=== PATIENT | male | born 1930 | race Caucasian/White ===

== ENCOUNTER → 2016-07-09 | Outpatient (CLI) | payer MEDICARE ==
[~2016-07-09] MED LIST: AMAR4TAB PO; APIX2.5T PO; CARV12.52 PO; CARV25TA PO; CHEL50TA PO; FERR50TA PO; FURO1TAB93 PO; GLUCTAB PO; IMDU60TA PO; KCL10 PO; POTA-267 PO; PRIL40CA PO; RAMI10CA PO; RAMI5CAP36 PO; RIFA550 PO; SITA100 PO; TORS1TAB12 PO; [UNRECOGNIZED DRUG - CODE] PO
[2016-07-09 08:21] LABS: AUTOMATED NEUTROPHIL # 3.3 TH/MM3 (1.8-7.7); BASOPHIL # 0.1 TH/MM3 (0-0.2); EOSINOPHIL # 0.4 TH/MM3 (0-0.4); EOSINOPHIL % 7.9 % (0.0-4.0); HEMATOCRIT 33.1 % (39.0-51.0); HEMO FLAGS DIFF FINAL; LYMPH % 19.4 % (9.0-44.0); LYMPHOCYTE # 1.1 TH/MM3 (1.0-4.8); MEAN CELL VOLUME 96.1 FL (80.0-100.0); MEAN CORPUSCULAR HEMOGLOBIN 32.4 PG (27.0-34.0); MEAN CORPUSCULAR HGB CONC 33.7 % (32.0-36.0); NEUT % 59.7 % (16.0-70.0); PLATELET COUNT 222 TH/MM3 (150-450); RED BLOOD COUNT 3.45 MIL/MM3 (4.50-5.90); RED CELL DISTRIBUTION WIDTH 15.4 % (11.6-17.2); WHITE BLOOD COUNT 5.5 TH/MM3 (4.0-11.0)
[2016-07-09 08:26] LABS: INTERNATIONAL NORMALIZED RATIO 1.1 RATIO; PROTHROMBIN TIME - PATIENT 12.7 SEC (9.8-11.6)
[2016-07-09 08:42] LABS: ANION GAP 6 MEQ/L (5-15); AST (GOT) 13 U/L (15-37); BICARBONATE 32.5 MEQ/L (21.0-32.0); BLOOD UREA NITROGEN 28 MG/DL (7-18); CHLORIDE 98 MEQ/L (98-107); GLOMERULAR FILTRATION RATE 58 ML/MIN (>89); GLUCOSE,FASTING 228 MG/DL (74-99); POTASSIUM 4.9 MEQ/L (3.5-5.1); SODIUM (NA) 136 MEQ/L (136-145)
[2016-07-09 08:45] LABS: ALKALINE PHOSPHATASE 168 U/L (45-117); ALT (GPT) 16 U/L (12-78); TOTAL BILIRUBIN ADULT 0.5 MG/DL (0.2-1.0)
== END ==
LOC: CLAB 07:59
PROVIDERS: ATTEND Physician Assistant Medical
DX: K74.60 Unspecified cirrhosis of liver (principal)
CPT/HCPCS: 36415; 80053; 82105; 85025; 85610

== ENCOUNTER → 2016-07-16 | Outpatient (CLI) | payer MEDICARE ==
[2016-07-16 08:51] LABS: BICARBONATE 33.1 MEQ/L (21.0-32.0); POTASSIUM 4.5 MEQ/L (3.5-5.1)
== END ==
LOC: CLAB 07:56
PROVIDERS: ATTEND Internal Medicine Cardiovascular Disease
DX: I50.9 Heart failure, unspecified (principal); Z79.899 Other long term (current) drug therapy
CPT/HCPCS: 36415; 80048

== ENCOUNTER → 2016-12-31 | Outpatient (CLI) | payer MEDICARE ==
[2016-12-31 08:35] LABS: AUTOMATED NEUTROPHIL # 3.3 TH/MM3 (1.8-7.7); BASOPHIL % 0.9 % (0.0-2.0); EOSINOPHIL # 0.3 TH/MM3 (0-0.4); EOSINOPHIL % 5.1 % (0.0-4.0); HEMATOCRIT 33.9 % (39.0-51.0); HEMO FLAGS DIFF FINAL; LYMPH % 18.7 % (9.0-44.0); LYMPHOCYTE # 0.9 TH/MM3 (1.0-4.8); MEAN CELL VOLUME 100.7 FL (80.0-100.0); MEAN CORPUSCULAR HGB CONC 32.8 % (32.0-36.0); MONO % 10.1 % (0.0-8.0); NEUT % 65.2 % (16.0-70.0); PLATELET COUNT 214 TH/MM3 (150-450); RED BLOOD COUNT 3.37 MIL/MM3 (4.50-5.90); RED CELL DISTRIBUTION WIDTH 15.1 % (11.6-17.2); WHITE BLOOD COUNT 5.1 TH/MM3 (4.0-11.0)
[2016-12-31 08:45] LABS: INTERNATIONAL NORMALIZED RATIO 1.1 RATIO; PROTHROMBIN TIME - PATIENT 12.7 SEC (9.8-11.6)
[2016-12-31 09:05] LABS: ANION GAP 7 MEQ/L (5-15); AST (GOT) 19 U/L (15-37); BICARBONATE 30.2 MEQ/L (21.0-32.0); BLOOD UREA NITROGEN 21 MG/DL (7-18); CHLORIDE 101 MEQ/L (98-107); GLOMERULAR FILTRATION RATE 76 ML/MIN (>89); GLUCOSE,FASTING 196 MG/DL (74-99); POTASSIUM 4.1 MEQ/L (3.5-5.1); SODIUM (NA) 138 MEQ/L (136-145)
[2016-12-31 09:07] LABS: ALT (GPT) 23 U/L (12-78)
[2016-12-31 09:09] LABS: ALKALINE PHOSPHATASE 152 U/L (45-117); TOTAL BILIRUBIN ADULT 0.8 MG/DL (0.2-1.0)
== END ==
LOC: CLAB 07:45
PROVIDERS: ATTEND Physician Assistant Medical
DX: K74.60 Unspecified cirrhosis of liver (principal)
CPT/HCPCS: 36415; 80053; 82105; 85025; 85610

== ENCOUNTER 2017-02-24 09:36 | Observation (INO) | payer MEDICARE ==
[~2017-02-24] VITALS: Ht 180.3 cm; Wt 75.0 kg
[2017-02-24 09:42] VITALS: BP 138/66; PULSE 84; RESP 24; TEMP 98.4; O2SAT 96
[2017-02-24] MEDS ORDERED: SODIUM CHLORIDE 0.9% FLUSH 5 ML FLUSH IV FLUSH PRN (09:45)
[2017-02-24] MEDS ORDERED: SODIUM CHLORID 0.9% 500 ML INJ 500 ML IV ONE (09:45)
[2017-02-24 09:48] VITALS: RESP 24; O2SAT 96
[2017-02-24] MEDS ORDERED: SACU1TAB7 PO (09:48)
[2017-02-24] MEDS ORDERED: APIX2.5T PO (09:48)
[2017-02-24] MEDS ORDERED: XIFA550T4 PO (09:48)
[2017-02-24] MEDS ORDERED: METF500T PO (09:48)
[2017-02-24] MEDS ORDERED: POTA10CA PO (09:48)
[2017-02-24] MEDS ORDERED: GLIM4TAB PO (09:48)
[2017-02-24] MEDS ORDERED: CARV12.52 PO (09:48)
[2017-02-24] MEDS ORDERED: TORS20TA PO (09:48)
[2017-02-24] MEDS ORDERED: FERR1TAB20 (09:48)
[2017-02-24] MEDS ORDERED: SITA1TAB2 PO (09:48)
[2017-02-24] MEDS ORDERED: ISOS60TA PO (09:48)
--- NOTE | 2017-02-24 09:50 | PD ---
HPI Chief Complaint: Fall Time Seen by Provider: 09:43 Travel History International Travel<30 days: No Contact w/Intl Traveler<30days: No Traveled to known affect area: No History of Present Illness HPI 86-year-old male patient with history of dementia, presents to the ER today brought in by EMS because apparently he has had a declining course according to the family, generally weak, fell off the toilet this morning. Apparently he usually is able to walk and transfer with walker with some help in the family but the states that he has not been able to do that. It is unclear when the symptoms worsened. He is demented and is not a reliable historian. Modifying Factors: None Associated Signs & Symptoms: Weakness, altered mental status, fall from toilet Risk Factors: Elderly, dementia PFSH Past Medical History Hx Anticoagulant Therapy: Yes (ELIQUIS) Asthma: No Autoimmune Disease: No Blood Disorders: No Anxiety: No Depression: No Heart Rhythm Problems: Yes Cancer: No Cardiac Catheterization: Yes Cardiovascular Problems: Yes (chf) High Cholesterol: No Chemotherapy: No Chest Pain: Yes Congestive Heart Failure: Yes COPD: No Dementia: Yes Diabetes: Yes Diminished Hearing: Yes Endocrine: Yes Gastrointestinal Disorders: No Genitourinary: Yes (kidney stones) Hypertension: Yes Implanted Vascular Access Dvce: Yes Kidney Stones: Yes Musculoskeletal: Yes (back surgery) Neurologic: No Psychiatric: No Reproductive: No Respiratory: No Myocardial Infarction: Yes Radiation Therapy: No Sleep Apnea: No Thyroid Disease: No Past Surgical History Abdominal Surgery: Yes (multiple hernia's) AICD: Yes Body Medical Devices: AICD/pacemaker Cardiac Surgery: Yes (pacer - apr 2002, 2005, cabg may 1989) Coronary Artery Bypass Graft: Yes Pacemaker: Yes Other Surgery: Yes Social History Alcohol Use: No Tobacco Use: No Substance Use: No Allergies-Medications (Allergen,Severity, Reaction): Coded Allergies: tetanus toxoid, adsorbed (Unverified Allergy, Severe, 02/24/17) Reported Meds & Prescriptions Reported Meds & Active Scripts Active Reported [Mery-Sequels] 50 Mg HS Xifaxan (Rifaximin) 550 Mg Tab 500 Mg PO BID Potassium Chloride ER (Potassium Chloride) 10 Meq Cap 10 Meq PO DAILY Torsemide 20 Mg Tab 20 Mg PO BID Eliquis (Apixaban) 2.5 Mg Tab 2.5 Mg PO BID Entresto (Sacubitril-Valsartan) 49-51 Mg Tab 1 Tab PO BID Januvia (Sitagliptin Phosphate) 100 Mg Tab 100 Mg PO DAILY Glimepiride 4 Mg Tab 4 Mg PO DAILY Take with breakfast or first main meal Isosorbide Mononitrate ER (Isosorbide Mononitrate) 60 Mg Tab 60 Mg PO DAILY Metformin (Metformin HCl) 500 Mg Tab 500 Mg PO BIDPC With meals Carvedilol 12.5 Mg Tab 12.5 Mg PO BID Review of Systems ROS Limitations: Altered Mental Status Physical Exam Narrative GENERAL: Well-developed elderly white male patient currently in mild distress. Awake, alert, following directions, oriented to self. SKIN: Focused skin assessment warm/dry. HEAD: Atraumatic. Normocephalic. EYES: Pupils equal and round. No scleral icterus. No injection or drainage. ENT: No nasal bleeding or discharge. Mucous membranes pink and moist. NECK: Trachea midline. No JVD. CARDIOVASCULAR: Regular rate and rhythm. No murmur appreciated. RESPIRATORY: No accessory muscle use. Clear to auscultation. Breath sounds equal bilaterally. GASTROINTESTINAL: Abdomen soft, non-tender, nondistended. Hepatic and splenic margins not palpable. MUSCULOSKELETAL: No obvious deformities. No clubbing. No cyanosis. No edema. NEUROLOGICAL: Awake and alert. No obvious cranial nerve deficits. Motor grossly within normal limits. Normal speech. No pronator drift. PSYCHIATRIC: Appropriate mood and affect; insight and judgment poor. Data Data Last Documented VS Vital Signs Date Time Temp Pulse Resp B/P (MAP) Pulse Ox O2 Delivery O2 Flow Rate FiO2 02/24/17 09:49 24 96 Nasal Cannula 2.00 02/24/17 09:42 98.4 84 138/66 (90) Orders Orders Electrocardiogram (02/24/17 09:43) Complete Blood Count With Diff (02/24/17 09:43) Comprehensive Metabolic Panel (02/24/17 09:43) Prothrombin Time / Inr (Pt) (02/24/17 09:43) Act Partial Throm Time (Ptt) (02/24/17 09:43) Troponin I (02/24/17:43) Thyroid Stimulating Hormone (02/24/17 09:43) Urinalysis - C+S If Indicated (02/24/17 09:43) Lactic Acid Sepsis Protocol (02/24/17 09:43) Blood Culture (02/24/17 09:43) Chest, Single Ap (02/24/17 09:43) Ct Brain W/O Iv Contrast(Rout) (02/24/17 09:43) Blood Glucose (02/24/17 09:43) Ecg Monitoring (02/24/17 09:43) Iv Access Insert/Monitor (02/24/17 09:43) Cath For Specimen (02/24/17 09:43) Oximetry (02/24/17 09:43) Sodium Chloride 0.9% Flush (Ns Flush) (02/24/17 09:45) Sodium Chlorid 0.9% 500 Ml Inj (Ns 500 M (02/24/17 09:45) Admit Order (Ed Use Only) (02/24/17 12:34) Labs Laboratory Tests Test 02/24/17 09:45 02/24/17 10:27 02/24/17 12:15 White Blood Count 7.3 TH/MM3 Red Blood Count 3.33 MIL/MM3 Hemoglobin 11.3 GM/DL Hematocrit 33.4 % Mean Corpuscular Volume 100.2 FL Mean Corpuscular Hemoglobin 34.0 PG Mean Corpuscular Hemoglobin Concent 33.9 % Red Cell Distribution Width 14.3 % Platelet Count 202 TH/MM3 Mean Platelet Volume 9.5 FL Neutrophils (%) (Auto) 70.3 % Lymphocytes (%) (Auto) 14.9 % Monocytes (%) (Auto) 10.7 % Eosinophils (%) (Auto) 3.6 % Basophils (%) (Auto) 0.5 % Neutrophils # (Auto) 5.1 TH/MM3 Lymphocytes # (Auto) 1.1 TH/MM3 Monocytes # (Auto) 0.8 TH/MM3 Eosinophils # (Auto) 0.3 TH/MM3 Basophils # (Auto) 0.0 TH/MM3 CBC Comment DIFF FINAL Differential Comment Prothrombin Time 12.8 SEC Prothromb Time International Ratio 1.2 RATIO Activated Partial Thromboplast Time 29.2 SEC Blood Urea Nitrogen 22 MG/DL Creatinine 1.16 MG/DL Random Glucose 242 MG/DL Total Protein 6.5 GM/DL Albumin 3.2 GM/DL Calcium Level 8.8 MG/DL Alkaline Phosphatase 139 U/L Aspartate Amino Transf (AST/SGOT) 23 U/L Alanine Aminotransferase (ALT/SGPT) 18 U/L Total Bilirubin 0.9 MG/DL Sodium Level 135 MEQ/L Potassium Level 4.3 MEQ/L Chloride Level 102 MEQ/L Carbon Dioxide Level 25.2 MEQ/L Anion Gap 8 MEQ/L Estimat Glomerular Filtration Rate 60 ML/MIN Lactic Acid Level 2.7 mmol/L Troponin I LESS THAN 0.02 NG/ML Thyroid Stimulating Hormone 3rd Gen 2.410 uIU/ML Urine Color YELLOW Urine Turbidity CLEAR Urine pH 7.0 Urine Specific [place] 1.013 Urine Protein TRACE mg/dL Urine Glucose (UA) TRACE mg/dL Urine Ketones NEG mg/dL Urine Occult Blood NEG Urine Nitrite NEG Urine Bilirubin NEG Urine Urobilinogen 2.0 MG/DL Urine Leukocyte Esterase NEG Urine RBC 5 /hpf Urine WBC 1 /hpf Urine Hyaline Casts 3 /lpf Microscopic Urinalysis Comment CATH-CULT NOT IND MDM Medical Decision Making Medical Screen Exam Complete: Yes Emergency Medical Condition: Yes Medical Record Reviewed: Yes Interpretation(s) EKG shows a paced rhythm at a rate of 73 bpm. No signs of acute ST-T changes Laboratory Tests Test 02/24/17 09:45 02/24/17 10:27 02/24/17 12:15 Red Blood Count 3.33 MIL/MM3 (4.50-5.90) Hemoglobin 11.3 GM/DL (13.0-17.0) Hematocrit 33.4 % (39.0-51.0) Mean Corpuscular Volume 100.2 FL (80.0-100.0) Neutrophils (%) (Auto) 70.3 % (16.0-70.0) Monocytes (%) (Auto) 10.7 % (0.0-8.0) Prothrombin Time 12.8 SEC (9.8-11.6) Blood Urea Nitrogen 22 MG/DL (7-18) Random Glucose 242 MG/DL (74-106) Albumin 3.2 GM/DL (3.4-5.0) Alkaline Phosphatase 139 U/L (45-117) Sodium Level 135 MEQ/L (136-145) Estimat Glomerular Filtration Rate 60 ML/MIN (>89) Lactic Acid Level 2.7 mmol/L (0.4-2.0) Troponin I LESS THAN 0.02 NG/ML Urine RBC 5 /hpf (0-3) Last [address] 02/24/17 0967 Signed Impressions: Service Date/Time: February 10:03 - CONCLUSION: No acute disease. No evidence of hemorrhage or edema. Bilateral basal ganglia calcifications. Ramses King MD Chest X-Ray 02/24/1743 Signed Impressions: Service Date/Time: , February 24, 2017 09:49 - CONCLUSION: 1. Cardiomegaly with mild positive fluid balance. 2. Minimal bibasilar airspace disease, likely atelectasis. Tevin Gordon MD Differential Diagnosis General weakness: Dehydration versus worsening dementia versus acute intracranial processes versus CVA versus metabolic issues versus sepsis Narrative Course Patient's states that he is doing poorly at home, has had a worsening weakness until today where he just was falling from a toilet seat. It is unclear whether he had a syncopal episode. Lab work did not indicate significant metabolic issues. Chest x-ray and CAT scan was negative for any acute injuries or issues. Patient does not have focal neurological deficits in the ER. However, states that he had a right sided weakness when he was on the toilet. My plan would be to admit him for further evaluation. Case was briefly discussed with Dr. Gill and her nurse practitioner called me after having read through the patient's note as well. Agrees patient should get further evaluation. Diagnosis Primary Impression: General weakness Additional Impression: Syncope Admitting Information Admitting Physician Requests: Admit Abby Cortes MD Feb 24, 2017 09:50
[2017-02-24 10:01] LABS: AUTOMATED NEUTROPHIL # 5.1 TH/MM3 (1.8-7.7); BASOPHIL % 0.5 % (0.0-2.0); EOSINOPHIL # 0.3 TH/MM3 (0-0.4); EOSINOPHIL % 3.6 % (0.0-4.0); HEMATOCRIT 33.4 % (39.0-51.0); HEMO FLAGS DIFF FINAL; LYMPH % 14.9 % (9.0-44.0); LYMPHOCYTE # 1.1 TH/MM3 (1.0-4.8); MEAN CELL VOLUME 100.2 FL (80.0-100.0); MEAN CORPUSCULAR HGB CONC 33.9 % (32.0-36.0); MONO % 10.7 % (0.0-8.0); NEUT % 70.3 % (16.0-70.0); PLATELET COUNT 202 TH/MM3 (150-450); RED BLOOD COUNT 3.33 MIL/MM3 (4.50-5.90); RED CELL DISTRIBUTION WIDTH 14.3 % (11.6-17.2); WHITE BLOOD COUNT 7.3 TH/MM3 (4.0-11.0)
[2017-02-24 10:08] LABS: INTERNATIONAL NORMALIZED RATIO 1.2 RATIO; PROTHROMBIN TIME - PATIENT 12.8 SEC (9.8-11.6)
[2017-02-24 10:09] LABS: APTT (PATIENT) 29.2 SEC (24.3-30.1)
--- NOTE | 2017-02-24 10:14 | RADRPT ---
EXAM DATE/TIME: 02/24/2017 09:49 [facility] COMPARISON: CHEST SINGLE AP, January 07, 2016, 6:48. INDICATIONS : Weakness, short of breath, congestion. MEDICAL HISTORY : Chronic obstructive pulmonary disease. Myocardial infarction. SURGICAL HISTORY : Pacemaker. CABG. ENCOUNTER: Initial ACUITY: 1 day PAIN SCORE: 0/10 LOCATION: Bilateral chest FINDINGS: Median sternotomy wires and postsurgical features of prior cardiac surgery. Multiple lead AICD device with battery pack obscuring portion of the right hemithorax. Mild interstitial prominence with minim al bibasilar airspace disease likely reflecting atelectasis or scarring. Cardiac silhouette is enlarg ed. Central pulmonary vascularity is slightly indistinct. Remainder of the exam is unchanged. CONCLUSION: 1. Cardiomegaly with mild positive fluid balance. 2. Minimal bibasilar airspace disease, likely atelectasis. Tevin Gordon MD on February 24, 2017 at 10:08 Board Certified Radiologist. This report was verified electronically.
--- NOTE | 2017-02-24 10:18 | RADRPT ---
EXAM DATE/TIME: 02/24/2017 10:03 [facility] COMPARISON: No previous studies available for comparison. INDICATIONS : Altered mental status. RADIATION DOSE: 37.25 CTDIvol (mGy) MEDICAL HISTORY : Dementia. Cardiovascular disease SURGICAL HISTORY : CABG Pacemaker. ENCOUNTER: Initial ACUITY: 1 day PAIN SCALE: Non-responsive LOCATION: cranial TECHNIQUE: Multiple contiguous axial images were obtained of the head. Using automated exposure control and adj ustment of the mA and/or kV according to patient size, radiation dose was kept as low as reasonably a chievable to obtain optimal diagnostic quality images. DICOM format image data is available electro nically for review and comparison. FINDINGS: There is marked central and cortical atrophy with dilatation of ventricular and sulcal spaces. There is no parenchymal hemorrhage, acute infarction or mass lesion identified. There are no extra-axial fluid collections appreciated. The posterior fossa is unremarkable with midline fourth ventricle. T he portion of the orbits and paranasal sinuses visualized are unremarkable. CONCLUSION: No acute disease. No evidence of hemorrhage or edema. Bilateral basal ganglia calcifications. Ramses King MD on February 24, 2017 at 10:16 Board Certified Radiologist. This report was verified electronically.
[2017-02-24 10:27] LABS: ANION GAP 8 MEQ/L (5-15); AST (GOT) 23 U/L (15-37); BICARBONATE 25.2 MEQ/L (21.0-32.0); BLOOD UREA NITROGEN 22 MG/DL (7-18); CHLORIDE 102 MEQ/L (98-107); GLOMERULAR FILTRATION RATE 60 ML/MIN (>89); POTASSIUM 4.3 MEQ/L (3.5-5.1); SODIUM (NA) 135 MEQ/L (136-145)
[2017-02-24 10:38] LABS: ALKALINE PHOSPHATASE 139 U/L (45-117); ALT (GPT) 18 U/L (12-78); TOTAL BILIRUBIN ADULT 0.9 MG/DL (0.2-1.0)
[2017-02-24 10:52] LABS: BLOOD, URINE NEG (NEG); COMMENT (UR) CATH-CULT NOT IND; CULTURE IF INDICATED CATH CULTURE NOT IND; GLUCOSE,URINE TRACE mg/dL (NEG); HYALINE CAST, URINE 3 /lpf (RARE); KETONE, URINE NEG (NEG); NITRITE,URINE NEG (NEG); URINE COLOR YELLOW (YELLW/STRAW)
[2017-02-24 11:54] LABS: LACTIC ACID GHOST NOT REPORTABLE
[2017-02-24 13:00] VITALS: BP 131/67; PULSE 70; RESP 22; O2SAT 100
--- NOTE | 2017-02-24 14:33 | HHI.HP ---
HPI Service [facility] Primary Care Physician Gt Barry MD Admission Diagnosis altered mental status episode/near syncope Diagnoses: (1) Near syncope (2) DM (diabetes mellitus) (3) HLD (hyperlipidemia) (4) Cirrhosis of liver not due to alcohol (5) General weakness (6) Dementia Chief Complaint: Near syncopal episode Travel History International Travel<30 Days: No Contact w/Intl Traveler <30 Da: No Traveled to Known Affected Are: No History of Present Illness Written by Nicolle Lopez, acting as scribe for Dr. Gill on 02/24/17 at 14:33. Mr. Mata is an 86-year-old male patient with a known medical history of dementia, diabetes mellitus, nonalcoholic liver cirrhosis, and CAD who presented to the ED after a near syncopal episode. Patient seen and examined in ED, with at beside. Per , patient had been sitting on the toilet this am when she noticed him favoring his right side and began to lean, falling over off the toilet. Denies hitting his head or loosing consciousness. states that patient has been having increasing weakness in his bilateral lower extremities, very unsteady on his feet and requiring assistance with a walker for over 6 months now. Patient also reports of a fall 2 months ago and has just been declining since. Patient is awake and alert, oriented x 2, unaware of present year. Follows all commands appropriately. All cranial nerves intact. Patient PCP is Dr. Barry. Denies any recent illness including fever, chills, cough, shortness of breath, abdominal pain, nausea, vomiting, diarrhea or dysuria, slurring speech. states patient has been eating well, denies dysphagia. Review of Systems Neurologic: COMPLAINS OF: Abnormal gait, Localized weakness, Poor Balance Except as stated in HPI: all other systems reviewed are Neg Past Family Social History Past Medical History CAD with history of PR and CABG Hypertension Diabetes mellitus Dementia CHF Cardiomyopathy Past Surgical History Multiple hernia repairs AICD placement CABG Reported Medications Reported Meds & Active Scripts Active Reported [Mery-Sequels] 50 Mg HS Xifaxan (Rifaximin) 550 Mg Tab 500 Mg PO BID Potassium Chloride ER (Potassium Chloride) 10 Meq Cap 10 Meq PO DAILY Torsemide 20 Mg Tab 20 Mg PO BID Eliquis (Apixaban) 2.5 Mg Tab 2.5 Mg PO BID Entresto (Sacubitril-Valsartan) 49-51 Mg Tab 1 Tab PO BID Januvia (Sitagliptin Phosphate) 100 Mg Tab 100 Mg PO DAILY Glimepiride 4 Mg Tab 4 Mg PO DAILY Take with breakfast or first main meal Isosorbide Mononitrate ER (Isosorbide Mononitrate) 60 Mg Tab 60 Mg PO DAILY Metformin (Metformin HCl) 500 Mg Tab 500 Mg PO BIDPC With meals Carvedilol 12.5 Mg Tab 12.5 Mg PO BID Allergies: Coded Allergies: tetanus toxoid, adsorbed (Unverified Allergy, Severe, 02/24/17) Active Ordered Medications Current Medications Medications (Trade) Dose Ordered Sig/Erza Route Start Time Stop Time Status Last Admin (NS Flush) 2 ml UNSCH PRN IV FLUSH 02/24/17 09:45 Family History Father has a history of lung cancer, with a positive smoking history. Social History Denies any current tobacco use. Denies any alcohol use. Denies any illicit drug use. Physical Exam Vital Signs Vital Signs Date Time Temp Pulse Resp B/P (MAP) Pulse Ox O2 Delivery O2 Flow Rate FiO2 02/24/17 13:00 70 22 131/67 (88) 100 Room Air 02/24/17 09:49 24 96 Nasal Cannula 2.00 02/24/17 09:48 24 96 2.00 02/24/17 09:42 98.4 84 24 138/66 (90) 96 Physical Exam GENERAL: This is a frail, elderly, thin male patient, lying in bed in no apparent distress. SKIN: Bilateral elbow abrasions. Warm and dry. HEAD: Atraumatic. Normocephalic. Pupils equal round and reactive. Extraocular motions intact. No scleral icterus. No injection or drainage. Nose without bleeding. Airway patent. NECK: Trachea midline. No JVD. Supple. CARDIOVASCULAR: Regular rate and rhythm without murmurs, gallops, or rubs. Paced. RESPIRATORY: Clear to auscultation. Breath sounds equal bilaterally. No wheezes , rales, or rhonchi. GASTROINTESTINAL: Abdomen soft, non-tender, nondistended. No guarding. MUSCULOSKELETAL: Extremities without clubbing, cyanosis, or edema. No joint tenderness, effusion, or edema noted. NEUROLOGICAL: Awake and alert. Cranial nerves II through XII intact. Motor and sensory grossly within normal limits. Five out of 5 muscle strength in all muscle groups. Normal speech. Laboratory Laboratory Tests Test 02/24/17 09:45 02/24/17 10:27 02/24/17 12:15 White Blood Count 7.3 Red Blood Count 3.33 Hemoglobin 11.3 Hematocrit 33.4 Mean Corpuscular Volume 100.2 Mean Corpuscular Hemoglobin 34.0 Mean Corpuscular Hemoglobin Concent 33.9 Red Cell Distribution Width 14.3 Platelet Count 202 Mean Platelet Volume 9.5 Neutrophils (%) (Auto) 70.3 Lymphocytes (%) (Auto) 14.9 Monocytes (%) (Auto) 10.7 Eosinophils (%) (Auto) 3.6 Basophils (%) (Auto) 0.5 Neutrophils # (Auto) 5.1 Lymphocytes # (Auto) 1.1 Monocytes # (Auto) 0.8 Eosinophils # (Auto) 0.3 Basophils # (Auto) 0.0 CBC Comment DIFF FINAL Differential Comment Prothrombin Time 12.8 Prothromb Time International Ratio 1.2 Activated Partial Thromboplast Time 29.2 Blood Urea Nitrogen 22 Creatinine 1.16 Random Glucose 242 Total Protein 6.5 Albumin 3.2 Calcium Level 8.8 Alkaline Phosphatase 139 Aspartate Amino Transf (AST/SGOT) 23 Alanine Aminotransferase (ALT/SGPT) 18 Total Bilirubin 0.9 Sodium Level 135 Potassium Level 4.3 Chloride Level 102 Carbon Dioxide Level 25.2 Anion Gap 8 Estimat Glomerular Filtration Rate 60 Lactic Acid Level 2.7 1.6 Troponin I LESS THAN 0.02 Thyroid Stimulating Hormone 3rd Gen 2.410 Urine Color YELLOW Urine Turbidity CLEAR Urine pH 7.0 Urine Specific [place] 1.013 Urine Protein TRACE Urine Glucose (UA) TRACE Urine Ketones NEG Urine Occult Blood NEG Urine Nitrite NEG Urine Bilirubin NEG Urine Urobilinogen 2.0 Urine Leukocyte Esterase NEG Urine RBC 5 Urine WBC 1 Urine Hyaline Casts 3 Microscopic Urinalysis Comment CATH-CULT NOT IND Date/Time Source Procedure Growth Status 02/24/17 10:00 Blood Peripheral Aerobic Blood Culture Pending Received 02/24/17 10:00 Blood Peripheral Anaerobic Blood Culture Pending Received Result Diagram: 02/24/17 0945 02/24/1745 Imaging Last Impressions Head CT 02/24/17942 Signed Impressions: Service Date/Time: February 10:03 - CONCLUSION: No acute disease. No evidence of hemorrhage or edema. Bilateral basal ganglia calcifications. Ramses King MD Chest X-Ray 02/24/17942 Signed Impressions: Service Date/Time: February 09:49 - CONCLUSION: 1. Cardiomegaly with mild positive fluid balance. 2. Minimal bibasilar airspace disease, likely atelectasis. Tevin Gordon MD Capcassi VTE Risk Assessment Caprini VTE Risk Assessment: Mod/High Risk (score >= 2) Caprini Risk Assessment Model Point Value = 1 Point Value = 2 Point Value = 3 Point Value = 5 Age 41-60 Minor surgery BMI > 25 kg/m2 Swollen legs Varicose veins or History of unexplained or recurrent spontaneous Oral contraceptives or hormone replacement Sepsis (< 1 month) Serious lung disease, including pneumonia (< 1 month) Abnormal pulmonary function Acute myocardial infarction Congestive heart failure (< 1 month) History of inflammatory bowel disease Medical patient at bed rest Age 61-74 Arthroscopic surgery Major open surgery (> 45 min) Laparoscopic surgery (> 45 min) Malignancy Confined to bed (> 72 hours) Immobilizing plaster cast Central venous access Age >= 75 History of VTE Family history of VTE Factor V Leiden Prothrombin [id number] Lupus anticoagulant Anticardiolipin antibodies Elevated serum homocysteine Heparin-induced thrombocytopenia Other congenital or acquired thrombophilia Stroke (< 1 month) Elective arthroplasty Hip, pelvis, or leg fracture Acute spinal cord injury (< 1 month) Prophylaxis Regimen Total Risk Factor Score Risk Level Prophylaxis Regimen 0-1 Low Early ambulation 2 Moderate Order ONE of the following: *Sequential Compression Device (SCD) *Heparin 5000 units SQ BID 3-4 Higher Order ONE of the following medications: *Heparin 5000 units SQ TID *Enoxaparin/Lovenox 40 mg SQ daily (WT < 150 kg, CrCl > 30 mL/min) *Enoxaparin/Lovenox 30 mg SQ daily (WT < 150 kg, CrCl > 10-29 mL/min) *Enoxaparin/Lovenox 30 mg SQ BID (WT < 150 kg, CrCl > 30 mL/min) AND/OR *Sequential Compression Device (SCD) 5 or more Highest Order ONE of the following medications: *Heparin 5000 units SQ TID (Preferred with Epidurals) *Enoxaparin/Lovenox 40 mg SQ daily (WT < 150 kg, CrCl > 30 mL/min) *Enoxaparin/Lovenox 30 mg SQ daily (WT < 150 kg, CrCl > 10-29 mL/min) *Enoxaparin/Lovenox 30 mg SQ BID (WT < 150 kg, CrCl > 30 mL/min) AND *Sequential Compression Device (SCD) Assessment and Plan Assessment and Plan Mr. Mata is an 86-year-old male patient with a known medical history of dementia, diabetes mellitus, nonalcoholic liver cirrhosis, and CAD who presented to the ED after a near syncopal episode. Patient seen and examined in ED, with at beside. Per , patient had been sitting on the toilet this am when she noticed him favoring his right side and began to lean, falling over off the toilet. Near syncopal episode Dehydration Generalized weakness secondary to above - Head CT reviewed showing no acute disease, no hemorrhage or edema. - CXR reviewed showing cardiomegaly with mild positive fluid balance, minimal basilar airspace disease, likely atelectasis. - Lactic acid 2.7, suspect secondary to dehydration, improved with hydration to 1.6. - Blood cultures obtained and pending. Follow. - Ensure hydration, NS 500 ml bolus x 1 in ED. Start NS @ 75 ml/hr. - Will check B12 and vitamin D level. TSH normal. - Continue neuro checks. - Order for PT/OT evaluate and treat. Type 2 diabetes mellitus, chronic - ACCU checks ACHS, sliding scale insulin, cover as needed. Congestive heart failure AICD placement - Continue Entresto and Torsemide. Continue Eliquis. - Continue home potassium replacement. Hypertension, chronic: Controlled at this time. Continue home Coreg and Imdur. Continue to monitor BP. CAD history: Continue home Coreg. DVT Prophylaxis: SCDs/Eliquis This note was transcribed by SULEMA Concepcion . I, Dr. Veronica Gill personally performed the history, physical exam, and medical decision making; and confirmed the accuracy of the information in the transcribed note. Authenticated by Dr. Veronica Gill 02/24/17 at 14:33. Nicolle Lopez Feb 24, 2017 14:33 Veronica Gill MD Feb 24, 2017 15:59
[2017-02-24] MEDS ORDERED: SENNOSIDES 8.6 MG TAB PO PRN (14:45)
[2017-02-24] MEDS ORDERED: LACTULOSE SYRUP 20 GM/30 ML CUP PO PRN (14:45)
[2017-02-24] MEDS ORDERED: MAGNESIUM HYDROXIDE SUSP 30 ML CUP PO PRN (14:45)
[2017-02-24] MEDS ORDERED: DEXTROSE 50% IN WATER 50 ML VIAL(D50) IV PRN (14:45)
[2017-02-24] MEDS ORDERED: GLUCAGON 1 MG/ML VIAL OTHER PRN (14:45)
[2017-02-24] MEDS ORDERED: PROCHLORPERAZINE 25 MG SUPP RECTAL PRN (14:45)
[2017-02-24] MEDS ORDERED: TEMAZEPAM 15 MG CAP PO PRN (14:45)
[2017-02-24] MEDS ORDERED: BISACODYL 10 MG SUPP RECTAL PRN (14:45)
[2017-02-24] MEDS ORDERED: ONDANSETRON HCL 4 MG/2 ML VIAL IVP PRN (14:45)
[2017-02-24] MEDS ORDERED: NALOXONE HCL 0.4 MG/ML AMP IV PUSH PRN (14:45)
[2017-02-24] MEDS ORDERED: SODIUM CHLORIDE 0.9% FLUSH 10 ML FLUSH IV FLUSH PRN (14:45)
[2017-02-24] MEDS ORDERED: ACETAMINOPHEN 325 MG TAB PO PRN (14:45)
[2017-02-24 15:10] VITALS: O2SAT 93
[2017-02-24] MEDS: SODIUM CHLOR 0.9% 1000 ML INJ 1,000 ML IV SCH ×2 (15:14→18:50)
[2017-02-24 16:00] VITALS: BP 171/77; PULSE 70; RESP 16; TEMP 97.4; O2SAT 96
[2017-02-24] MEDS: INSULIN ASPART SUPPLEMENTAL SCALE SQ SCH ×2 (17:00→21:00)
--- NOTE | 2017-02-24 20:36 | EKG ---
Date Performed: 02/24/2017 Time Performed: 09:46:17 PTAGE: 86 years EKG: ELECTRONIC VENTRICULAR PACEMAKER ABNORMAL RHYTHM ECG PREVIOUS TRACING : 01/09/2016 12.14 DOCTOR: Sean Daniels Interpretating Date/Time 02/24/2017 20:36:36
[2017-02-24 20:40] VITALS: BP 153/68; PULSE 70; RESP 22; TEMP 98.8; O2SAT 99
[2017-02-24] MEDS: SACUBITRIL/VALSARTAN 49 MG-51 MG TAB PO SCH (21:00)
[2017-02-24] MEDS: TORSEMIDE 20 MG TAB PO SCH (21:00)
[2017-02-24] MEDS: SODIUM CHLORIDE 0.9% FLUSH 10 ML FLUSH IV FLUSH SCH (21:00)
[2017-02-24] MEDS: CARVEDILOL 12.5 MG TAB PO SCH (22:08)
[2017-02-24] MEDS: DOCUSATE SODIUM 50 MG/SENNA 8.6 MG TAB PO SCH (22:09)
[2017-02-24] MEDS: RIFAXIMIN 550 MG TAB PO SCH (22:09)
[2017-02-24] MEDS: APIXABAN 2.5 MG TABLET PO SCH (22:09)
[2017-02-25] VITALS (7 sets, daily range): BP systolic 126–170; BP diastolic 60–77; PULSE 70–75; RESP 19–20; TEMP 97.2–98.4; O2SAT 92–98
[2017-02-25] MEDS: SODIUM CHLOR 0.9% 1000 ML INJ 1,000 ML IV SCH (06:24)
[2017-02-25] MEDS: ISOSORBIDE MONONITRATE 60 MG TAB PO SCH (06:24)
[2017-02-25] MEDS: SODIUM CHLORIDE 0.9% FLUSH 10 ML FLUSH IV FLUSH SCH ×2 (09:00→21:07)
[2017-02-25] MEDS: INSULIN ASPART SUPPLEMENTAL SCALE SQ SCH ×4 (09:06→21:03)
[2017-02-25] MEDS: POTASSIUM CHLORIDE 10 MEQ CAP PO SCH (09:11)
[2017-02-25] MEDS: APIXABAN 2.5 MG TABLET PO SCH ×2 (09:11→21:06)
[2017-02-25] MEDS: RIFAXIMIN 550 MG TAB PO SCH ×2 (09:11→21:06)
[2017-02-25] MEDS: TORSEMIDE 20 MG TAB PO SCH ×2 (09:11→21:06)
[2017-02-25] MEDS: CARVEDILOL 12.5 MG TAB PO SCH ×2 (09:11→21:06)
[2017-02-25] MEDS: SACUBITRIL/VALSARTAN 49 MG-51 MG TAB PO SCH ×2 (09:11→21:06)
[2017-02-25] MEDS: DOCUSATE SODIUM 50 MG/SENNA 8.6 MG TAB PO SCH ×2 (09:11→21:06)
--- NOTE | 2017-02-25 10:11 | HHI.PR ---
Subjective Remarks Patient in the chair. he is pleasantly confused. Discussed with Pt , patient requires rehab. at bedside. Says he was noted chocking, however says this is usually not his problem. says he was able to eat regular food at home. Patient denies any sob,m cough, fever ro chills.No n/v/d/c. He feels weak and also has unsteady gait. Objective Vitals Vital Signs Date Time Temp Pulse Resp B/P (MAP) Pulse Ox O2 Delivery O2 Flow Rate FiO2 02/25/17 04:45 98.1 75 20 150/65 (93) 98 02/25/17 04:12 97 Nasal Cannula 2.00 02/25/17 00:30 97.9 71 20 170/77 (108) 98 02/24/17 20:40 98.8 70 22 153/68 (96) 99 02/24/17 16:00 97.4 70 16 171/77 (108) 96 02/24/17 15:10 93 21 02/24/17 13:00 70 22 131/67 (88) 100 Room Air I/O 02/24/17 02/24/17 02/24/17 02/25/17 02/25/17 02/25/17 07:00 15:00 23:00 07:00 15:00 23:00 Intake Total 1000 ml 0 ml Output Total 400 ml 800 ml Balance 600 ml -800 ml Intake Oral 0 ml 0 ml IV Total 1000 ml Output Urine Total 400 ml 800 ml # Voids 1 8 # Bowel Movements 0 0 Result Diagram: 02/24/1745 02/24/1745 Imaging Last Impressions Head CT 02/24/17942 Signed Impressions: Service Date/Time: February 10:03 - CONCLUSION: No acute disease. No evidence of hemorrhage or edema. Bilateral basal ganglia calcifications. Ramses King MD Chest X-Ray 02/24/17942 Signed Impressions: Service Date/Time: February 09:49 - CONCLUSION: 1. Cardiomegaly with mild positive fluid balance. 2. Minimal bibasilar airspace disease, likely atelectasis. Tevin Gordon MD Objective Remarks GENERAL: This is a frail, elderly, thin male patient, lying in bed in no apparent distress. SKIN: Bilateral elbow abrasions. Warm and dry. HEAD: Atraumatic. Normocephalic. Pupils equal round and reactive. Extraocular motions intact. No scleral icterus. No injection or drainage. Nose without bleeding. Airway patent. NECK: Trachea midline. No JVD. Supple. CARDIOVASCULAR: Regular rate and rhythm without murmurs, gallops, or rubs. Paced. RESPIRATORY: Clear to auscultation. Breath sounds equal bilaterally. No wheezes , rales, or rhonchi. GASTROINTESTINAL: Abdomen soft, non-tender, nondistended. No guarding. MUSCULOSKELETAL: Extremities without clubbing, cyanosis, or edema. No joint tenderness, effusion, or edema noted. NEUROLOGICAL: Awake and alert. Cranial nerves II through XII intact. Motor and sensory grossly within normal limits. Five out of 5 muscle strength in all muscle groups. Normal speech. A/P Problem List: (1) Near syncope ICD Code: R55 - Syncope and collapse (2) DM (diabetes mellitus) ICD Code: E11.9 - Type 2 diabetes mellitus without complications Status: Chronic (3) HLD (hyperlipidemia) ICD Code: E78.5 - Hyperlipidemia, unspecified Status: Chronic (4) Cirrhosis of liver not due to alcohol ICD Code: K74.60 - Unspecified cirrhosis of liver Status: Chronic (5) General weakness ICD Code: R53.1 - Weakness Status: Acute (6) Dementia ICD Code: F03.90 - Unspecified dementia without behavioral disturbance Status: Acute Assessment and Plan Mr. Mata is an 86-year-old male patient with a known medical history of dementia, diabetes mellitus, nonalcoholic liver cirrhosis, and CAD who presented to the ED after a near syncopal episode. Patient seen and examined in ED, with at beside. Per , patient had been sitting on the toilet this am when she noticed him favoring his right side and began to lean, falling over off the toilet. Near syncopal episode Dehydration Generalized weakness secondary to above - Head CT reviewed showing no acute disease, no hemorrhage or edema. - CXR reviewed showing cardiomegaly with mild positive fluid balance, minimal basilar airspace disease, likely atelectasis. - Lactic acid 2.7, suspect secondary to dehydration, improved with hydration to 1.6. - Blood cultures obtained and pending. Follow. - Ensure hydration, NS 500 ml bolus x 1 in ED. Start NS @ 75 ml/hr. - B12 into alower side will give supplement. With vitamin D deficiency start ergocalciferol. TSH normal. - Continue neuro checks. - Order for PT/OT evaluate and treat. PT recommends rehab Dysphagia: Placed NPO. ST for swallow eval and cognitive eval Type 2 diabetes mellitus, chronic - ACCU checks ACHS, sliding scale insulin, cover as needed. Congestive heart failure AICD placement - Continue Entresto and Torsemide. Continue Eliquis. - Continue home potassium replacement. Hypertension, chronic: Controlled at this time. Continue home Coreg and Imdur. Continue to monitor BP. CAD history: Continue home Coreg. Dementia: Per doesn't want meds foe dementia as they don't work DVT Prophylaxis: SCDs/Eliquis Discussed with the patient,.nurse, his at bedside Veronica Gill MD Feb 25, 2017 10:11
[2017-02-25 10:19] LABS: AUTOMATED NEUTROPHIL # 6.2 TH/MM3 (1.8-7.7); BASOPHIL % 0.3 % (0.0-2.0); EOSINOPHIL % 0.5 % (0.0-4.0); HEMATOCRIT 34.3 % (39.0-51.0); HEMO FLAGS DIFF FINAL; LYMPH % 12.4 % (9.0-44.0); MEAN CELL VOLUME 100.4 FL (80.0-100.0); MEAN CORPUSCULAR HEMOGLOBIN 33.5 PG (27.0-34.0); MEAN CORPUSCULAR HGB CONC 33.4 % (32.0-36.0); MONO % 9.3 % (0.0-8.0); NEUT % 77.5 % (16.0-70.0); PLATELET COUNT 224 TH/MM3 (150-450); RED BLOOD COUNT 3.42 MIL/MM3 (4.50-5.90)
[2017-02-25 10:25] LABS: BICARBONATE 22.7 MEQ/L (21.0-32.0)
[2017-02-25] MEDS ORDERED: CYANOCOBALAMIN 1000 MCG/ML VIAL IM ONE (10:50)
[2017-02-25] MEDS ORDERED: ERGOCALCIFEROL (VIT D2) 50,000 UNIT CAP PO ONE (11:00)
[2017-02-26] VITALS (8 sets, daily range): BP systolic 97–147; BP diastolic 56–72; PULSE 70–88; RESP 17–20; TEMP 97.8–98.8; O2SAT 93–95
[2017-02-26] MEDS: SODIUM CHLOR 0.9% 1000 ML INJ 1,000 ML IV SCH ×3 (06:38→20:27)
[2017-02-26] MEDS: ISOSORBIDE MONONITRATE 60 MG TAB PO SCH (06:39)
[2017-02-26] MEDS: CYANOCOBALAMIN 100 MCG TAB PO SCH (09:00)
[2017-02-26] MEDS: INSULIN ASPART SUPPLEMENTAL SCALE SQ SCH ×4 (09:38→20:26)
[2017-02-26] MEDS: CARVEDILOL 12.5 MG TAB PO SCH ×2 (09:39→20:26)
[2017-02-26] MEDS: SACUBITRIL/VALSARTAN 49 MG-51 MG TAB PO SCH ×2 (09:39→20:26)
[2017-02-26] MEDS: DOCUSATE SODIUM 50 MG/SENNA 8.6 MG TAB PO SCH ×2 (09:39→20:26)
[2017-02-26] MEDS: RIFAXIMIN 550 MG TAB PO SCH ×2 (09:39→20:27)
[2017-02-26] MEDS: APIXABAN 2.5 MG TABLET PO SCH ×2 (09:40→20:27)
[2017-02-26] MEDS: TORSEMIDE 20 MG TAB PO SCH ×2 (09:40→20:27)
[2017-02-26] MEDS: POTASSIUM CHLORIDE 10 MEQ CAP PO SCH (09:41)
[2017-02-26] MEDS: SODIUM CHLORIDE 0.9% FLUSH 10 ML FLUSH IV FLUSH SCH ×2 (09:41→20:25)
[2017-02-26] MEDS ORDERED: B-12100T PO (11:11)
[2017-02-26] MEDS ORDERED: SENN1TAB PO (11:11)
[2017-02-26] MEDS ORDERED: ERGO1CAP30 PO (11:11)
--- NOTE | 2017-02-26 11:12 | HHI.DS ---
Discharge Summary Admission Date Feb 24, 2017 at 12:35 Discharge Date: Feb 28, 2017 Admitting Diagnosis altered mental status episode/near syncope (1) Near syncope ICD Code: R55 - Syncope and collapse (2) DM (diabetes mellitus) ICD Code: E11.9 - Type 2 diabetes mellitus without complications Status: Chronic (3) HLD (hyperlipidemia) ICD Code: E78.5 - Hyperlipidemia, unspecified Status: Chronic (4) Cirrhosis of liver not due to alcohol ICD Code: K74.60 - Unspecified cirrhosis of liver Status: Chronic (5) General weakness ICD Code: R53.1 - Weakness Status: Acute (6) Dementia ICD Code: F03.90 - Unspecified dementia without behavioral disturbance Status: Acute Procedures none Brief History - From Admission Written by Nicolle Lopez, acting as scribe for Dr. Gill on 02/24/17 at 14:33. Mr. Mata is an 86-year-old male patient with a known medical history of dementia, diabetes mellitus, nonalcoholic liver cirrhosis, and CAD who presented to the ED after a near syncopal episode. Patient seen and examined in ED, with at beside. Per , patient had been sitting on the toilet this am when she noticed him favoring his right side and began to lean, falling over off the toilet. Denies hitting his head or loosing consciousness. states that patient has been having increasing weakness in his bilateral lower extremities, very unsteady on his feet and requiring assistance with a walker for over 6 months now. Patient also reports of a fall 2 months ago and has just been declining since. Patient is awake and alert, oriented x 2, unaware of present year. Follows all commands appropriately. All cranial nerves intact. Patient PCP is Dr. Barry. Denies any recent illness including fever, chills, cough, shortness of breath, abdominal pain, nausea, vomiting, diarrhea or dysuria, slurring speech. states patient has been eating well, denies dysphagia. CBC/BMP: 02/25/17 0931 02/25/17 0931 Significant Findings Laboratory Tests Test 02/24/17 09:45 02/24/17 10:27 02/24/17 12:15 02/25/17 09:31 Red Blood Count 3.33 MIL/MM3 (4.50-5.90) 3.42 MIL/MM3 (4.50-5.90) Hemoglobin 11.3 GM/DL (13.0-17.0) 11.5 GM/DL (13.0-17.0) Hematocrit 33.4 % (39.0-51.0) 34.3 % (39.0-51.0) Mean Corpuscular Volume 100.2 FL (80.0-100.0) 100.4 FL (80.0-100.0) Neutrophils (%) (Auto) 70.3 % (16.0-70.0) 77.5 % (16.0-70.0) Monocytes (%) (Auto) 10.7 % (0.0-8.0) 9.3 % (0.0-8.0) Prothrombin Time 12.8 SEC (9.8-11.6) Blood Urea Nitrogen 22 MG/DL (7-18) 22 MG/DL (7-18) Random Glucose 242 MG/DL (74-106) 234 MG/DL (74-106) Albumin 3.2 GM/DL (3.4-5.0) Alkaline Phosphatase 139 U/L (45-117) Sodium Level 135 MEQ/L (136-145) 135 MEQ/L (136-145) Estimat Glomerular Filtration Rate 60 ML/MIN (>89) 87 ML/MIN (>89) Lactic Acid Level 2.7 mmol/L (0.4-2.0) Troponin I LESS THAN 0.02 NG/ML 25-Hydroxy Vitamin D Total 8.6 ng/ML (30-100) Urine RBC 5 /hpf (0-3) Imaging Last Impressions Head CT 02/24/17942 Signed Impressions: Service Date/Time: February 10:03 - CONCLUSION: No acute disease. No evidence of hemorrhage or edema. Bilateral basal ganglia calcifications. Ramses King MD Chest X-Ray 02/24/1743 Signed Impressions: Service Date/Time: February 09:49 - CONCLUSION: 1. Cardiomegaly with mild positive fluid balance. 2. Minimal bibasilar airspace disease, likely atelectasis. Tevin Gordon MD PE at Discharge GENERAL: This is a frail, elderly, thin male patient, lying in bed in no apparent distress. SKIN: Bilateral elbow abrasions. Warm and dry. HEAD: Atraumatic. Normocephalic. Pupils equal round and reactive. Extraocular motions intact. No scleral icterus. No injection or drainage. Nose without bleeding. Airway patent. NECK: Trachea midline. No JVD. Supple. CARDIOVASCULAR: Regular rate and rhythm without murmurs, gallops, or rubs. Paced. RESPIRATORY: Clear to auscultation. Breath sounds equal bilaterally. No wheezes , rales, or rhonchi. GASTROINTESTINAL: Abdomen soft, non-tender, nondistended. No guarding. MUSCULOSKELETAL: Extremities without clubbing, cyanosis, or edema. No joint tenderness, effusion, or edema noted. NEUROLOGICAL: Awake and alert. Cranial nerves II through XII intact. Motor and sensory grossly within normal limits. Five out of 5 muscle strength in all muscle groups. Normal speech. Hospital Course Mr. Mata is an 86-year-old male patient with a known medical history of dementia, diabetes mellitus, nonalcoholic liver cirrhosis, and CAD who presented to the ED after a near syncopal episode. Patient seen and examined in ED, with at beside. Per , patient had been sitting on the toilet this am when she noticed him favoring his right side and began to lean, falling over off the toilet. Patient has unsteady gait for the past 6 month , getting worse. Patient with dehydration ,vir D defic. Also noted with mild dysphagia, ST was consulted. Patient received IVF, improved, PT recommends SNF. DC to snf in stable condition to f/u as OP with PCP and consultants. Near syncopal episode Dehydration Generalized weakness secondary to above Vit D deficiency - Head CT reviewed showing no acute disease, no hemorrhage or edema. - CXR reviewed showing cardiomegaly with mild positive fluid balance, minimal basilar airspace disease, likely atelectasis. - Lactic acid 2.7, suspect secondary to dehydration, improved with hydration to 1.6. - Blood cultures obtained x 2 one with likely contaminant. - Ensure hydration, NS 500 ml bolus x 1 in ED. received NS @ 75 ml/hr. - B12 into alower side will give supplement. With vitamin D deficiency start ergocalciferol. TSH normal. - Continue neuro checks. - Order for PT/OT evaluate and treat. PT recommends rehab Dysphagia: ST consulted - s/p swallow eval, on [facility] soft diet Type 2 diabetes mellitus, chronic - ACCU checks ACHS, sliding scale insulin, cover as needed. Congestive heart failure AICD placement - Continue Entresto and Torsemide. Continue Eliquis. - Continue home potassium replacement. Hypertension, chronic: Controlled at this time. Continue home Coreg and Imdur. Continue to monitor BP. CAD history: Continue home Coreg. Dementia: Per doesn't want meds for dementia as they don't work DVT Prophylaxis: SCDs/Eliquis Discussed with the patient,.nurse. PT recommends SNF DC to SNF when arrangements done . Case managements consulted for DC plan Pt Condition on Discharge: Stable Discharge Disposition: Discharge to SNF Discharge Time: > 30 minutes Discharge Instructions DIET: Follow Instructions for: Heart Healthy Diet, Diabetic Diet Speech Therapy-Diet Recommends: Mechanical Soft, Chopped Meat w/Gravy Activities you can perform: Regular-No Restrictions Other Activity Instructions: Fall precautions Follow up Referrals: PCP Follow-up - 2-3 Days New Medications: Ergocalciferol (Ergocalciferol) 50,000 Unit Cap 45373 UNITS PO Q7D for Nutritional Supplement, #30 CAP 0 Refills Cyanocobalamin (B-12) 100 Mcg Tab 100 MCG PO DAILY for vit supplement , #30 TAB Sennosides-Docusate Sodium (Senna Plus 8.6-50 mg) 8.6 Mg-50 Mg Tab 1 TAB PO BID PRN for constipation , #60 TAB Continued Medications: Apixaban (Eliquis) 2.5 Mg Tab 2.5 MG PO BID for Blood Clot Prevention, TAB 0 Refills Carvedilol (Carvedilol) 12.5 Mg Tab 12.5 MG PO BID, TAB 0 Refills Glimepiride (Glimepiride) 4 Mg Tab 4 MG PO DAILY for Blood Sugar Management, TAB 0 Refills Take with breakfast or first main meal Isosorbide Mononitrate ER (Isosorbide Mononitrate ER) 60 Mg Tab 60 MG PO DAILY for Prevent Chest Pain, TAB 0 Refills Metformin (Metformin) 500 Mg Tab 500 MG PO BIDPC for Blood Sugar Management, TAB 0 Refills With meals Potassium Chloride ER (Potassium Chloride ER) 10 Meq Cap 10 MEQ PO DAILY for Electrolyte Replacement, CAP 0 Refills Rifaximin (Xifaxan) 550 Mg Tab 500 MG PO BID, TAB 0 Refills Sacubitril-Valsartan (Entresto) 49-51 Mg Tab 1 TAB PO BID for Heart Failure, TAB 0 Refills Sitagliptin (Januvia) 100 Mg Tab 100 MG PO DAILY for Blood Sugar Management, TAB 0 Refills Torsemide (Torsemide) 20 Mg Tab 20 MG PO BID, TAB 0 Refills [Mery-Sequels] () 50 MG HS Veronica Gill MD Feb 26, 2017 11:12
--- NOTE | 2017-02-26 14:06 | HHI.PR ---
Subjective Remarks Patient in bed. Appears in nad. Asking for urinal. no fever or chills. No n/v/d /c. Pleasantly confused. Hard of hearing. Objective Vitals Vital Signs Date Time Temp Pulse Resp B/P (MAP) Pulse Ox O2 Delivery O2 Flow Rate FiO2 02/26/17 12:20 94 Nasal Cannula 2.00 02/26/17 12:00 98.2 73 17 97/56 (70) 94 02/26/17 07:51 97.9 70 17 130/70 (90) 93 02/26/17 04:00 97.8 70 20 147/72 (97) 94 02/26/17 00:20 98.8 88 20 130/64 (86) 94 02/25/17 21:15 97.9 70 19 126/60 (82) 95 02/25/17 16:00 98.4 70 20 131/62 (85) 92 I/O 02/25/17 02/25/17 02/25/17 02/26/17 02/26/17 02/26/17 07:00 15:00 23:00 07:00 15:00 23:00 Intake Total 0 ml 360 ml 400 ml 500 ml Output Total 800 ml 200 ml 100 ml Balance -800 ml 160 ml 300 ml 500 ml Intake Oral 0 ml 360 ml 400 ml IV Total 500 ml Output Urine Total 800 ml 200 ml 100 ml # Voids 8 1 4 # Bowel Movements 0 2 0 Result Diagram: 02/25/1793002/25/17930 Objective Remarks GENERAL: This is a frail, elderly, thin male patient, lying in bed in no apparent distress. Hard of hearing. SKIN: Bilateral elbow abrasions. Warm and dry. HEAD: Atraumatic. Normocephalic. Pupils equal round and reactive. Extraocular motions intact. No scleral icterus. No injection or drainage. Nose without bleeding. Airway patent. NECK: Trachea midline. No JVD. Supple. CARDIOVASCULAR: Regular rate and rhythm without murmurs, gallops, or rubs. Paced. RESPIRATORY: Clear to auscultation. Breath sounds equal bilaterally. No wheezes , rales, or rhonchi. GASTROINTESTINAL: Abdomen soft, non-tender, nondistended. No guarding. MUSCULOSKELETAL: Extremities without clubbing, cyanosis, or edema. No joint tenderness, effusion, or edema noted. NEUROLOGICAL: Awake and alert. Cranial nerves II through XII intact. Motor and sensory grossly within normal limits. Five out of 5 muscle strength in all muscle groups. Normal speech. A/P Problem List: (1) Near syncope ICD Code: R55 - Syncope and collapse (2) DM (diabetes mellitus) ICD Code: E11.9 - Type 2 diabetes mellitus without complications Status: Chronic (3) HLD (hyperlipidemia) ICD Code: E78.5 - Hyperlipidemia, unspecified Status: Chronic (4) Cirrhosis of liver not due to alcohol ICD Code: K74.60 - Unspecified cirrhosis of liver Status: Chronic (5) General weakness ICD Code: R53.1 - Weakness Status: Acute (6) Dementia ICD Code: F03.90 - Unspecified dementia without behavioral disturbance Status: Acute Assessment and Plan Mr. Mata is an 86-year-old male patient with a known medical history of dementia, diabetes mellitus, nonalcoholic liver cirrhosis, and CAD who presented to the ED after a near syncopal episode. Patient seen and examined in ED, with at beside. Per , patient had been sitting on the toilet this am when she noticed him favoring his right side and began to lean, falling over off the toilet. Near syncopal episode Dehydration Generalized weakness secondary to above - Head CT reviewed showing no acute disease, no hemorrhage or edema. - CXR reviewed showing cardiomegaly with mild positive fluid balance, minimal basilar airspace disease, likely atelectasis. - Lactic acid 2.7, suspect secondary to dehydration, improved with hydration to 1.6. - Blood cultures obtained and pending. Follow. - Ensure hydration, NS 500 ml bolus x 1 in ED. Start NS @ 75 ml/hr. - B12 into alower side will give supplement. With vitamin D deficiency start ergocalciferol. TSH normal. - Continue neuro checks. - Order for PT/OT evaluate and treat. PT recommends rehab Dysphagia: ST for swallow eval, on [facility] soft diet Type 2 diabetes mellitus, chronic - ACCU checks ACHS, sliding scale insulin, cover as needed. Congestive heart failure AICD placement - Continue Entresto and Torsemide. Continue Eliquis. - Continue home potassium replacement. Hypertension, chronic: Controlled at this time. Continue home Coreg and Imdur. Continue to monitor BP. CAD history: Continue home Coreg. Dementia: Per doesn't want meds for dementia as they don't work DVT Prophylaxis: SCDs/Eliquis Discussed with the patient,.nurse. PT recommends sNF DC to SNF when arrangements done . Case managements consulted for DC plan Veronica Gill MD Feb 26, 2017 14:06
[2017-02-27] VITALS (8 sets, daily range): BP systolic 108–152; BP diastolic 56–86; PULSE 69–73; RESP 18–22; TEMP 97.4–98.1; O2SAT 91–97
[2017-02-27] MEDS: ISOSORBIDE MONONITRATE 60 MG TAB PO SCH (06:10)
[2017-02-27] MEDS: SODIUM CHLORIDE 0.9% FLUSH 10 ML FLUSH IV FLUSH SCH ×2 (08:11→20:31)
[2017-02-27] MEDS: INSULIN ASPART SUPPLEMENTAL SCALE SQ SCH ×4 (08:11→20:31)
[2017-02-27] MEDS: POTASSIUM CHLORIDE 10 MEQ CAP PO SCH (08:12)
[2017-02-27] MEDS: CYANOCOBALAMIN 100 MCG TAB PO SCH (08:12)
[2017-02-27] MEDS: SACUBITRIL/VALSARTAN 49 MG-51 MG TAB PO SCH ×2 (08:12→20:30)
[2017-02-27] MEDS: APIXABAN 2.5 MG TABLET PO SCH ×2 (08:12→20:31)
[2017-02-27] MEDS: TORSEMIDE 20 MG TAB PO SCH ×2 (08:13→20:30)
[2017-02-27] MEDS: RIFAXIMIN 550 MG TAB PO SCH ×2 (08:13→20:30)
[2017-02-27] MEDS: DOCUSATE SODIUM 50 MG/SENNA 8.6 MG TAB PO SCH ×2 (08:13→20:30)
[2017-02-27] MEDS: CARVEDILOL 12.5 MG TAB PO SCH ×2 (08:13→20:30)
--- NOTE | 2017-02-27 08:47 | HHI.PR ---
Subjective Remarks very pleasant, in bed. He ate breakfast and feesl tired now. No fever or chills. No new motor deficit. No cough, fever or chills. Objective Vitals Vital Signs Date Time Temp Pulse Resp B/P (MAP) Pulse Ox O2 Delivery O2 Flow Rate FiO2 02/27/17 08:00 97.7 70 18 149/69 (95) 93 02/27/17 04:00 97.9 73 22 152/74 (100) 92 02/27/17 00:00 97.4 71 20 138/66 (90) 95 02/26/17 20:00 97.8 70 20 119/56 (77) 93 02/26/17 17:37 95 Nasal Cannula 2.00 02/26/17 16:00 98.0 70 18 101/59 (73) 95 02/26/17 12:20 94 Nasal Cannula 2.00 02/26/17 12:00 98.2 73 17 97/56 (70) 94 I/O 02/26/17 02/26/17 02/26/17 02/27/17 02/27/17 02/27/17 07:00 15:00 23:00 07:00 15:00 23:00 Intake Total 500 ml 480 ml 360 ml Output Total 150 ml 1000 ml 150 ml Balance 500 ml 330 ml -640 ml -150 ml Intake Oral 480 ml 360 ml IV Total 500 ml Output Urine Total 150 ml 1000 ml 150 ml # Voids 4 # Bowel Movements 0 Result Diagram: 02/25/1731 02/25/17 0931 Imaging Last Impressions Head CT 02/24/17942 Signed Impressions: Service Date/Time: February 10:03 - CONCLUSION: No acute disease. No evidence of hemorrhage or edema. Bilateral basal ganglia calcifications. Ramses King MD Chest X-Ray 02/24/17942 Signed Impressions: Service Date/Time: February 09:49 - CONCLUSION: 1. Cardiomegaly with mild positive fluid balance. 2. Minimal bibasilar airspace disease, likely atelectasis. Tevin Gordon MD Objective Remarks GENERAL: This is a frail, elderly, thin male patient, lying in bed in no apparent distress. Hard of hearing. SKIN: Bilateral elbow abrasions. Warm and dry. HEAD: Atraumatic. Normocephalic. Pupils equal round and reactive. Extraocular motions intact. No scleral icterus. No injection or drainage. Nose without bleeding. Airway patent. NECK: Trachea midline. No JVD. Supple. CARDIOVASCULAR: Regular rate and rhythm without murmurs, gallops, or rubs. Paced. RESPIRATORY: Clear to auscultation. Breath sounds equal bilaterally. No wheezes , rales, or rhonchi. GASTROINTESTINAL: Abdomen soft, non-tender, nondistended. No guarding. MUSCULOSKELETAL: Extremities without clubbing, cyanosis, or edema. No joint tenderness, effusion, or edema noted. NEUROLOGICAL: Awake and alert. Cranial nerves II through XII intact. Motor and sensory grossly within normal limits. Five out of 5 muscle strength in all muscle groups. Normal speech. A/P Problem List: (1) Near syncope ICD Code: R55 - Syncope and collapse (2) DM (diabetes mellitus) ICD Code: E11.9 - Type 2 diabetes mellitus without complications Status: Chronic (3) HLD (hyperlipidemia) ICD Code: E78.5 - Hyperlipidemia, unspecified Status: Chronic (4) Cirrhosis of liver not due to alcohol ICD Code: K74.60 - Unspecified cirrhosis of liver Status: Chronic (5) General weakness ICD Code: R53.1 - Weakness Status: Acute (6) Dementia ICD Code: F03.90 - Unspecified dementia without behavioral disturbance Status: Acute Assessment and Plan Mr. Mata is an 86-year-old male patient with a known medical history of dementia, diabetes mellitus, nonalcoholic liver cirrhosis, and CAD who presented to the ED after a near syncopal episode. Patient seen and examined in ED, with at beside. Per , patient had been sitting on the toilet this am when she noticed him favoring his right side and began to lean, falling over off the toilet. Near syncopal episode Dehydration Generalized weakness secondary to above Vit D deficiency - Head CT reviewed showing no acute disease, no hemorrhage or edema. - CXR reviewed showing cardiomegaly with mild positive fluid balance, minimal basilar airspace disease, likely atelectasis. - Lactic acid 2.7, suspect secondary to dehydration, improved with hydration to 1.6. - Blood cultures obtained and pending. Follow. - Ensure hydration, NS 500 ml bolus x 1 in ED. Start NS @ 75 ml/hr. - B12 into alower side will give supplement. With vitamin D deficiency start ergocalciferol. TSH normal. - Continue neuro checks. - Order for PT/OT evaluate and treat. PT recommends rehab Dysphagia: ST consulted - s/p swallow eval, on [facility] soft diet Type 2 diabetes mellitus, chronic - ACCU checks ACHS, sliding scale insulin, cover as needed. Congestive heart failure AICD placement - Continue Entresto and Torsemide. Continue Eliquis. - Continue home potassium replacement. Hypertension, chronic: Controlled at this time. Continue home Coreg and Imdur. Continue to monitor BP. CAD history: Continue home Coreg. Dementia: Per doesn't want meds for dementia as they don't work DVT Prophylaxis: SCDs/Eliquis Discussed with the patient,.nurse. PT recommends sNF DC to SNF when arrangements done . Case managements consulted for DC plan Veronica Gill MD Feb 27, 2017 08:47
[2017-02-27] MEDS: SODIUM CHLOR 0.9% 1000 ML INJ 1,000 ML IV SCH ×2 (10:23→23:28)
[2017-02-28 00:20] VITALS: BP 108/66; PULSE 70; RESP 20; TEMP 98.2; O2SAT 93
[2017-02-28 04:53] VITALS: BP 132/67; PULSE 70; RESP 20; TEMP 97.6; O2SAT 94
[2017-02-28] MEDS: ISOSORBIDE MONONITRATE 60 MG TAB PO SCH (06:30)
[2017-02-28 08:00] VITALS: BP 133/66; PULSE 70; RESP 18; TEMP 98.4; O2SAT 93
[2017-02-28] MEDS: INSULIN ASPART SUPPLEMENTAL SCALE SQ SCH ×3 (08:53→17:05)
[2017-02-28] MEDS: SODIUM CHLORIDE 0.9% FLUSH 10 ML FLUSH IV FLUSH SCH (08:54)
[2017-02-28] MEDS: SACUBITRIL/VALSARTAN 49 MG-51 MG TAB PO SCH (08:54)
[2017-02-28] MEDS: RIFAXIMIN 550 MG TAB PO SCH (08:54)
[2017-02-28] MEDS: POTASSIUM CHLORIDE 10 MEQ CAP PO SCH (08:54)
[2017-02-28] MEDS: APIXABAN 2.5 MG TABLET PO SCH (08:54)
[2017-02-28] MEDS: CYANOCOBALAMIN 100 MCG TAB PO SCH (08:55)
[2017-02-28] MEDS: CARVEDILOL 12.5 MG TAB PO SCH (08:55)
[2017-02-28] MEDS: TORSEMIDE 20 MG TAB PO SCH (08:55)
[2017-02-28] MEDS: DOCUSATE SODIUM 50 MG/SENNA 8.6 MG TAB PO SCH (08:55)
--- NOTE | 2017-02-28 09:07 | HHI.PR ---
Subjective Remarks Eating breakfast, appears in nad. Pleasantly confused. Feels tired. No n/v/d/c. No new motor deficit. Objective Vitals Vital Signs Date Time Temp Pulse Resp B/P (MAP) Pulse Ox O2 Delivery O2 Flow Rate FiO2 02/28/17 04:53 97.6 70 20 132/67 (88) 94 02/28/17 00:20 98.2 70 20 108/66 (80) 93 02/27/17 20:30 98.1 69 18 108/56 (73) 94 02/27/17 17:36 91 Nasal Cannula 2.00 02/27/17 16:00 97.6 71 18 114/58 (76) 91 02/27/17 12:00 97.4 71 18 134/86 (102) 95 02/27/17 09:46 97 Nasal Cannula 2.00 I/O 02/27/17 02/27/17 02/27/17 02/28/17 02/28/17 02/28/17 07:00 15:00 23:00 07:00 15:00 23:00 Intake Total 360 ml 390 ml Output Total 1000 ml 150 ml 203 ml Balance -640 ml -150 ml 187 ml Intake Oral 360 ml 240 ml IV Total 150 ml Output Urine Total 1000 ml 150 ml 203 ml Result Diagram: 02/25/1793002/25/17930 Imaging Last Impressions Head CT 02/24/17942 Signed Impressions: Service Date/Time: February 10:03 - CONCLUSION: No acute disease. No evidence of hemorrhage or edema. Bilateral basal ganglia calcifications. Ramses King MD Chest X-Ray 02/24/17942 Signed Impressions: Service Date/Time: February 09:49 - CONCLUSION: 1. Cardiomegaly with mild positive fluid balance. 2. Minimal bibasilar airspace disease, likely atelectasis. Tevin Gordon MD Objective Remarks GENERAL: This is a frail, elderly, thin male patient, lying in bed in no apparent distress. Hard of hearing. SKIN: Bilateral elbow abrasions. Warm and dry. HEAD: Atraumatic. Normocephalic. Pupils equal round and reactive. Extraocular motions intact. No scleral icterus. No injection or drainage. Nose without bleeding. Airway patent. NECK: Trachea midline. No JVD. Supple. CARDIOVASCULAR: Regular rate and rhythm without murmurs, gallops, or rubs. Paced. RESPIRATORY: Clear to auscultation. Breath sounds equal bilaterally. No wheezes , rales, or rhonchi. GASTROINTESTINAL: Abdomen soft, non-tender, nondistended. No guarding. MUSCULOSKELETAL: Extremities without clubbing, cyanosis, or edema. No joint tenderness, effusion, or edema noted. NEUROLOGICAL: Awake and alert. Cranial nerves II through XII intact. Motor and sensory grossly within normal limits. Five out of 5 muscle strength in all muscle groups. Normal speech. A/P Problem List: (1) Near syncope ICD Code: R55 - Syncope and collapse (2) DM (diabetes mellitus) ICD Code: E11.9 - Type 2 diabetes mellitus without complications Status: Chronic (3) HLD (hyperlipidemia) ICD Code: E78.5 - Hyperlipidemia, unspecified Status: Chronic (4) Cirrhosis of liver not due to alcohol ICD Code: K74.60 - Unspecified cirrhosis of liver Status: Chronic (5) General weakness ICD Code: R53.1 - Weakness Status: Acute (6) Dementia ICD Code: F03.90 - Unspecified dementia without behavioral disturbance Status: Acute Assessment and Plan Mr. Mata is an 86-year-old male patient with a known medical history of dementia, diabetes mellitus, nonalcoholic liver cirrhosis, and CAD who presented to the ED after a near syncopal episode. Patient seen and examined in ED, with at beside. Per , patient had been sitting on the toilet this am when she noticed him favoring his right side and began to lean, falling over off the toilet. Near syncopal episode Dehydration Generalized weakness secondary to above Vit D deficiency - Head CT reviewed showing no acute disease, no hemorrhage or edema. - CXR reviewed showing cardiomegaly with mild positive fluid balance, minimal basilar airspace disease, likely atelectasis. - Lactic acid 2.7, suspect secondary to dehydration, improved with hydration to 1.6. - Blood cultures obtained and pending. Follow. - Ensure hydration, NS 500 ml bolus x 1 in ED. Start NS @ 75 ml/hr. - B12 into alower side will give supplement. With vitamin D deficiency start ergocalciferol. TSH normal. - Continue neuro checks. - Order for PT/OT evaluate and treat. PT recommends rehab Dysphagia: ST consulted - s/p swallow eval, on [facility] soft diet Type 2 diabetes mellitus, chronic - ACCU checks ACHS, sliding scale insulin, cover as needed. Congestive heart failure AICD placement - Continue Entresto and Torsemide. Continue Eliquis. - Continue home potassium replacement. Hypertension, chronic: Controlled at this time. Continue home Coreg and Imdur. Continue to monitor BP. CAD history: Continue home Coreg. Dementia: Per doesn't want meds for dementia as they don't work DVT Prophylaxis: SCDs/Eliquis Discussed with the patient,.nurse. PT recommends SNF DC to SNF when arrangements done . Case managements consulted for DC plan Veronica Gill MD Feb 28, 2017 09:07
[2017-02-28] MEDS: SODIUM CHLOR 0.9% 1000 ML INJ 1,000 ML IV SCH (11:45)
== END 2017-02-28 19:13 ==
LOC: NEPE 09:36 → NEDA 12:35 → N05A 16:13
PROVIDERS: ADMIT Hospitalist; ATTEND Hospitalist
DX: R55 Syncope and collapse (principal); R53.1 Weakness; W18.11XA Fall from or off toilet without subsequent striking against object, initial encounter; F03.90 Unspecified dementia, unspecified severity, without behavioral disturbance, psychotic disturbance, mood disturbance, and anxiety; I11.0 Hypertensive heart disease with heart failure; E11.9 Type 2 diabetes mellitus without complications; E78.5 Hyperlipidemia, unspecified; K74.60 Unspecified cirrhosis of liver; I25.10 Atherosclerotic heart disease of native coronary artery without angina pectoris; R26.81 Unsteadiness on feet; E86.0 Dehydration; E55.9 Vitamin D deficiency, unspecified; R13.10 Dysphagia, unspecified
CPT/HCPCS: 70450; 71010; 76937; 80048; 80053; 81001; 82306; 82607; 82948; 83605; 84443; 84484; 85025; 85610; 85730; 86403; 87040; 87149; 87205; 92610; 93005; 96125; 96360; 96361; 96372; 97110; 97162; 97167; 97530; 99285; G0378; G8987; G8988; G8996; G8997; G8998; G9168; G9169; G9170; J1815; J3420; J7030; J7040; P9612

== ENCOUNTER → 2017-06-23 | Outpatient (CLI) | payer MEDICARE ==
[~2017-06-23] MED LIST changes: -AMAR4TAB PO; +B-12100T PO; -CARV25TA PO; -CHEL50TA PO; +FERR1TAB20; -FERR50TA PO; -FURO1TAB93 PO; +GLIM4TAB PO; -GLUCTAB PO; -IMDU60TA PO; +ISOS60TA PO; -KCL10 PO; +METF500T PO; -POTA-267 PO; +POTA10CA PO; -PRIL40CA PO; -RAMI10CA PO; -RAMI5CAP36 PO; -RIFA550 PO; +SACU1TAB7 PO; +SENN1TAB PO; -SITA100 PO; +SITA1TAB2 PO; -TORS1TAB12 PO; +TORS20TA PO; +VITA500012 PO; +XIFA550T4 PO; -[UNRECOGNIZED DRUG - CODE] PO
[2017-06-23 08:54] LABS: AUTOMATED NEUTROPHIL # 3.1 TH/MM3 (1.8-7.7); BASOPHIL % 0.9 % (0.0-2.0); EOSINOPHIL # 0.4 TH/MM3 (0-0.4); EOSINOPHIL % 8.4 % (0.0-4.0); HEMATOCRIT 33.5 % (39.0-51.0); HEMOGLOBIN 11.3 GM/DL (13.0-17.0); LYMPH % 20.8 % (9.0-44.0); LYMPHOCYTE # 1.1 TH/MM3 (1.0-4.8); MEAN CELL VOLUME 99.3 FL (80.0-100.0); MEAN CORPUSCULAR HEMOGLOBIN 33.5 PG (27.0-34.0); MEAN CORPUSCULAR HGB CONC 33.8 % (32.0-36.0); MEAN PLATELET VOLUME 8.3 FL (7.0-11.0); MONOCYTE # 0.5 TH/MM3 (0-0.9); NEUT % 59.9 % (16.0-70.0); PLATELET COUNT 232 TH/MM3 (150-450); RED BLOOD COUNT 3.37 MIL/MM3 (4.50-5.90); RED CELL DISTRIBUTION WIDTH 14.7 % (11.6-17.2); WHITE BLOOD COUNT 5.1 TH/MM3 (4.0-11.0)
[2017-06-23 09:01] LABS: INTERNATIONAL NORMALIZED RATIO 1.2 RATIO; PROTHROMBIN TIME - PATIENT 12.5 SEC (9.8-11.6)
[2017-06-23 09:26] LABS: ALBUMIN 3.5 GM/DL (3.4-5.0); AST (GOT) 23 U/L (15-37); BICARBONATE 31.1 MEQ/L (21.0-32.0); BLOOD UREA NITROGEN 18 MG/DL (7-18); CALCIUM 8.8 MG/DL (8.5-10.1); CHLORIDE 99 MEQ/L (98-107); CREATININE 1.07 MG/DL (0.60-1.30); GLOMERULAR FILTRATION RATE 66 ML/MIN (>89); GLUCOSE,FASTING 196 MG/DL (74-99); SODIUM (NA) 136 MEQ/L (136-145)
[2017-06-23 09:28] LABS: ALT (GPT) 19 U/L (12-78); CHOLESTEROL 171 MG/DL (120-200); TRIGLYCERIDES 67 MG/DL (42-150)
[2017-06-23 09:30] LABS: ALKALINE PHOSPHATASE 146 U/L (45-117); CHOLESTEROL/ HDL RATIO 2.02 RATIO; HDL CHOLESTEROL 84.5 MG/DL (40.0-60.0); LDL CHOLESTEROL 73 MG/DL (0-99); TOTAL BILIRUBIN ADULT 0.7 MG/DL (0.2-1.0); TOTAL PROTEIN 7.1 GM/DL (6.4-8.2)
== END ==
LOC: CLAB 08:29
PROVIDERS: ATTEND Internal Medicine Gastroenterology
DX: I25.810 Atherosclerosis of coronary artery bypass graft(s) without angina pectoris (principal); K74.60 Unspecified cirrhosis of liver; I10 Essential (primary) hypertension; I48.91 Unspecified atrial fibrillation; D50.9 Iron deficiency anemia, unspecified; I50.9 Heart failure, unspecified; G47.00 Insomnia, unspecified; E11.9 Type 2 diabetes mellitus without complications; Z91.81 History of falling
CPT/HCPCS: 36415; 80053; 80061; 82105; 85025; 85610

== ENCOUNTER 2017-07-27 05:43 | Day surgery (SDC) | payer MEDICARE ==
[~2017-07-27] VITALS: Ht 172.7 cm; Wt 69.7 kg
[2017-07-27] MEDS ORDERED: LORazepam 1 MG TAB SL SCH (06:15)
[2017-07-27] MEDS ORDERED: NO Heparin, Lovenox, Coumadin at least 12 hours prior to procedure. PRN (06:15)
[2017-07-27] MEDS ORDERED: NS 1000 ML IV SCH (06:15)
[2017-07-27] MEDS ORDERED: METOPROLOL TARTRATE 25 MG TAB PO PRN (06:15)
[2017-07-27] MEDS ORDERED: ceFAZolin 2 GM PREMIX 50 ML IV SCH (06:15)
[2017-07-27] MEDS ORDERED: CHLORHEXIDINE GLUCONATE 2 % 1 PACK (2 CLOTHS) TOPICAL SCH (06:15)
[2017-07-27] MEDS ORDERED: LACTATED RINGER'S 1000 ML IV PRN (06:15)
[2017-07-27] MEDS ORDERED: CHLORHEXIDINE GLUCONATE 2 % 1 PACK (2 CLOTHS) TOPICAL PRN (06:15)
[2017-07-27] MEDS ORDERED: VANCOMYCIN 1000 MG/NS 250 ML IV SCH ×2 (06:15)
[2017-07-27] MEDS ORDERED: MUPIROCIN 2% OINT 1 APPLIC/GM SYR NASAL SCH (06:15)
[2017-07-27] MEDS ORDERED: POVIDONE IODINE 5% (ANTISEPSIS KIT) 4 APPLICATIONS EACH NARE SCH (06:15)
[2017-07-27] MEDS ORDERED: Hold AM Insulin & AM Hypoglycemic medications in diabetic patients PRN (06:15)
[2017-07-27] MEDS ORDERED: POVIDONE IODINE 5% (ANTISEPSIS KIT) 4 APPLICATIONS EACH NARE PRN (06:15)
[2017-07-27 06:39] LABS: AUTOMATED NEUTROPHIL # 3.1 TH/MM3 (1.8-7.7); BASOPHIL % 0.6 % (0.0-2.0); EOSINOPHIL # 0.4 TH/MM3 (0-0.4); EOSINOPHIL % 8.1 % (0.0-4.0); HEMATOCRIT 33.7 % (39.0-51.0); HEMOGLOBIN 11.2 GM/DL (13.0-17.0); LYMPH % 21.4 % (9.0-44.0); LYMPHOCYTE # 1.1 TH/MM3 (1.0-4.8); MEAN CELL VOLUME 99.6 FL (80.0-100.0); MEAN CORPUSCULAR HEMOGLOBIN 32.9 PG (27.0-34.0); MEAN PLATELET VOLUME 8.5 FL (7.0-11.0); MONO % 11.5 % (0.0-8.0); MONOCYTE # 0.6 TH/MM3 (0-0.9); NEUT % 58.4 % (16.0-70.0); PLATELET COUNT 249 TH/MM3 (150-450); RED BLOOD COUNT 3.39 MIL/MM3 (4.50-5.90); RED CELL DISTRIBUTION WIDTH 15.1 % (11.6-17.2); WHITE BLOOD COUNT 5.3 TH/MM3 (4.0-11.0)
[2017-07-27 06:44] LABS: INTERNATIONAL NORMALIZED RATIO 1.2 RATIO; PROTHROMBIN TIME - PATIENT 12.1 SEC (9.8-11.6)
[2017-07-27 06:49] LABS: BICARBONATE 29.9 MEQ/L (21.0-32.0); CALCIUM 8.9 MG/DL (8.5-10.1); CREATININE 0.9 MG/DL (0.60-1.30)
[2017-07-27 06:57] VITALS: BP 139/85; PULSE 70; RESP 16; TEMP 98.1; O2SAT 98
[2017-07-27] MEDS ORDERED: VANCOMYCIN 500 MG VIAL ONE (07:17)
[2017-07-27] MEDS ORDERED: LIDOCAINE HCL 2% 50 ML VIAL ONE (07:17)
[2017-07-27] MEDS ORDERED: GENTAMICIN SULFATE 80 MG/2 ML VIAL ONE (07:54)
[2017-07-27] MEDS ORDERED: CEPH-460 PO (08:09)
[2017-07-27] MEDS ORDERED: HYDR-3288 PO (08:09)
[2017-07-27] MEDS ORDERED: SODIUM CHLORIDE 0.9% FLUSH 10 ML FLUSH IV FLUSH PRN (08:15)
[2017-07-27] MEDS ORDERED: ACETAMINOPHEN/CODEINE 300 MG/30 MG TAB PO PRN ×2 (08:15)
[2017-07-27] MEDS ORDERED: ONDANSETRON HCL 4 MG/2 ML VIAL IV PUSH PRN (08:15)
--- NOTE | 2017-07-27 08:23 | CATHPROC ---
Patient Name: SAILAJA HENNESSY Study #: [id number] Initial MD: Dulce García Date of : 1930 Study Date: 07/27/2017 Cardiac Catheterization Report 07/27/2017 8:23:18 AM Financial #: [id number] 1 of 8 Patient Name: SAILAJA HENNESSY Study #: [id number] Initial MD: Dulce García Date of : 1930 Study Date: 07/27/2017 Entire Case Report Patient Information Patient Name SAILAJA HENNESSY Date of 1930 Age 86 years Financial # [id number] Gender M AlternateID Lab Number 6 Room Number DC06 Height (in) 68.0 Height (cm) 172.7 BSA 1.83 Weight (lbs) 153.3 Weight (kg) 69.7 Patient Address/Phone Number Home Address [facility] Home Phone Number [phone] [id number] Study Information Study Number Admission Scheduled Start Study Start [id number] Jul 27 2017 5:43AM 07/27/2017 Jul 27 2017 7:20AM [place] [facility] Cardiac Pacer/ICD Admit Source Facility Department Other [facility] - Vice President Of Brand Management Physician and Clinical Staff Initial Dulce Balderrama Academic Counselor James Beckman,RT(R) Other Anesthesia, CREDIT PRODUCTS OFFICER Other Tony, Rita,ENERGY BROKER TECH2 Recorder Marycruz Hamm,EVAN Scrub Nury ManuelRT(R) TECH2 07/27/2017 8:23:18 AM Financial #: [id number] 2 of 8 Patient Name: SAILAJA HENNESSY Study #: [id number] Initial MD: Dulce García Date of : 1930 Study Date: 07/27/2017 Equipment Time Management And Budget Analyst Description Size Mfg Part Number Used/Scraped [employer]/ EP 08:01 DEFIBRILLATOR, DYNAGEN MOVIE OPERATOR-D G151 Used PACER DERMABOND, ADHESIVE SKIN [id number] 07:28 CORDIS/PACER * Used GLUE MINI *[id number] CORMATRIX 08:03 ICD, ECM LARGE [id number] Used CARDIOVASCULAR TP-1103 07:28 MEDLINE INDUSTRIES SUTURE, STRIP PLUS 1/2" * Used *[id number] 07:28 MEDLINE PACER BORJA, LIMB * 2530 *[id number] Used [id number] 07:28 MEDLINE PACER PACK, PACER CUSTOM * Used *[id number] 07:36 Needle Sponge Count 2 22 Used 07:36 Needle Sponge Count 2 2 Used 07:36 Needle Sponge Count 20 200 Used SUTURE, 0 ETHIBOND [CT1] (CX21D), 8pk SUTURE, 2-0 VICRYL [CT1] (OSN147H) SUTURE, 2-0 VICRYL [CT1] (GTL850B) [id number] 07:28 [employer],WARM AIR CCL * Used *[id number] [facility] PAD, ELECTROSURGICAL 07:28 * [id number] *[id number] Used SURGICAL GROUNDING ORANGE [id number] 07:54 VITATRON MEDTRONIC PLASMABLADE, PEAD 3.0S * Used *[id number] 9161-2303 07:28 [employer]NE. / * Used *98044 Equipment Model, Serial, Lot Number and Expiration Data Description Model Number Serial Number Lot Number Expiration Date DEFIBRILLATOR, DYNAGEN MOVIE OPERATOR-D G151 [id number] 04-14-2019 ICD, [facility]-009-LRG [id number] Insurance Information Insurance Payor Private Health Insurance Third Green Party Third Green Party Number [facility] 07/27/2017 8:23:18 AM Financial #: [id number] 3 of Patient Name: SAILAJA HENNESSY Study #: [id number] Initial MD: Dulce García Date of : 1930 Study Date: 07/27/19 18 History: Risk Factors Family History of Hypertension Dyslipidemia Previous [place] Previous Heart Failure Premature CAD Yes Yes Yes No Yes Prior Valve Prior PCI Prior CABG Surgery No No No Cerebrovascular Peripheral Artery Chronic Lung On Dialysis Diabetes Diabetes Therapy Disease Disease Disease No No No No Yes Oral Labs Hgb (g/dl) Hct (%) RBC (MIL/MM3) WBC (l/cumm) Platelets (thousands) 11.60-17.00 35.00-51.00 4.00-5.90 4.00-11.00 150.00-450.00 11.2 3.7 3.3 5.3 249 Glucose (mg/dl) BUN (mg/dl) Creatinine (mg/dl) BUN:Creatinine (1:x) 74.00-106.00 7.00-18.00 0.50-1.30 10.00-20.00 189 23 0.9 25.6 Na (meq/l) K (meq/l) Cl (meq/l) CO2 (mmol/L) Ca (mg/dl) 136.00-145.00 3.50-5.10 98.00-107.00 21.00-32.00 8.50-10.10 137 3.9 102 29.9 8.9 PT (sec) PTT (sec) INR (PTT:PT) 9.80-11.60 24.30-30.10 0.90-1.10 12.1 30.1 1.2 CPK-MB (ng/ML) 0.50-3.60 Not Drawn Medication Medication Total Dose (Bolus/Oral) Medication Total Dosage/Unit 2% XYLOCAINE 50 mL Medications (Bolus/Oral) Medication Time Given Dosage/Unit Administered By Reason 2% XYLOCAINE 07/27/2017 7:50:48 AM 50 mL Anesthesia, CREDIT PRODUCTS OFFICER 50 mL 2% XYLOCAINE given in lab by Anesthesia, CREDIT PRODUCTS OFFICER in Right shoulder via Subcutaneous. Ordered by Dulce Rodney. right upper chest 07/27/2017 8:23:18 AM Financial #: [id number] 4 of 8 Patient Name: SAILAJA HENNESSY Study #: [id number] Initial MD: Dulce García Date of : 1930 Study Date: 07/27/2017 Medication (Drip) Medication Time Given Dosage/Unit Concentration/Unit Diluent (ml) Solution ANCEF 07/27/2017 7:24:37 AM 2 g 2 g ANCEF given in lab by Anesthesia, CREDIT PRODUCTS OFFICER via Peripheral IV. Ordered by Dulce García. VANCOMYCIN DRIP 07/27/2017 7:25:00 AM 1 g 1 g VANCOMYCIN DRIP given in lab by Anesthesia, CREDIT PRODUCTS OFFICER via Peripheral IV. Ordered by Dulce García. Initial Case Assessment Cardiovascular HR Rhythm NIBP Chest Pain 70 paced 173/83 0 Edema Present Skin color Skin None Normal Warm Dry Circulatory - Right Pulses Dorsalis Pedis 1 Scale (0,1,2,3,4,d) Circulatory - Left Pulses Dorsalis Pedis 1 Scale (0,1,2,3,4,d) Neurological State Oriented to time-place- Alert Moves all extremities person Respiration - General Respiration Rate SpO2 (%) O2 (lpm) (B/min) 18 97 2 07/27/2017 8:23:18 AM Financial #: [id number] 5 of 8 Patient Name: SAILAJA HENENSSY Study #: [id number] Initial MD: Dulce García Date of : 1930 Study Date: 07/27/2017 Final Case Assessment Cardiovascular HR Rhythm NIBP Chest Pain 70 PACED 114/77 0 Edema Present Skin color Skin None Normal Warm Dry Circulatory - Right Pulses Dorsalis Pedis 1 Scale (0,1,2,3,4,d) Circulatory - Left Pulses Dorsalis Pedis 1 Scale (0,1,2,3,4,d) Neurological State Oriented to time-place- Alert Moves all extremities person Respiration - General Respiration Rate SpO2 (%) O2 (lpm) (B/min) 18 100 4 Chronological Log Time Study Chronological Log 7:15:00 Patient arrived via Bed. 7:15:01 Patient Name, D.O.B, / Armband Verified By R.N. 7:15:10 Anesthesia at bedside. Assumes care of patient. 7:24:37 2 g ANCEF given in lab by Anesthesia, CREDIT PRODUCTS OFFICER via Peripheral IV. Ordered by Dulce García. 7:25:00 1 g VANCOMYCIN DRIP given in lab by Anesthesia, CREDIT PRODUCTS OFFICER via Peripheral IV. Ordered by Vielka García. 7:29:09 Patient has been NPO for More than 6Hrs. 7:29:10 Skin Breakdown- rt leg, covered with bandaid 7:29:28 Patient Warmer Placed on the Table. 7:29:29 Disposable Defibrillator Pads Placed On Patient. 7:29:30 Radha Prominences Protected 7:29:31 IV Warmer Connected To Patient. 7:29:32 A # 20 IV was noted in the Forearm (left). Grade = 0 07/27/2017 8:23:18 AM Financial #: [id number] 6 of 8 Patient Name: SAILAJA HENNESSY Study #: [id number] Initial MD: Dulce García Date of : 1930 Study Date: 07/27/2017 7:29:45 A # 20 IV was noted in the Antecubital (right). Grade = 0 7:29:58 History and physical on the chart or being dictated. Assessment: Initial Case, HR=70 BPM, Rhythm=paced, FGHY=329/83 mmhg, Chest Pain=0, Edema=None, Color=Normal, Skin = Warm, Dry Right Pulses: Candido Ped=1 7:29:59 Left Pulses: Candido Ped=1 Neurological: State=Alert, Ox3, TALLEY Respiration: Resp=18 B/min, SpO2=97 %, O2=2 lpm 7:31:05 Table restraints applied according to hospital policy 7:31:07 Right Upper Chest Prepped Times Two. 7:31:53 Bovie ground pad applied to:left hip 7:32:01 2% CHLORHEXIDINE GLUCONATE WASH AND NASAL SWIPE DONE PRIOR TO PROCEDURE. First Sponge And Instrument Count Done by Nury Manuel, RT(R) TECH2. 7:35:31 Hypo's: 2, Sponges: 20, Bovie/scratch: 2 Sutures: 2, Blades: 1, Instruments: 26, Syveck Patches: 0 verified by eliseo jara 7:39:10 paged 7:41:18 eliquis last taken Tuesday07/25/17 7:44:38 Reference ECG taken 7:44:41 MD arrived. Time Out. Correct patient, procedure, procedure equipment, site and side verified with physicia n present. Time 7:47:45 concurred by MD, individual staff and CREDIT PRODUCTS OFFICER. Time Out #2 - Consents verified, patient in correct position, all results are labled and displa yed, safety precautions 7:47:52 taken, antibiotics administered. Time out concurred by MD, individual staff and CREDIT PRODUCTS OFFICER in procedu re 7:48:17 Case Start 50 mL 2% XYLOCAINE given in lab by Anesthesia, CREDIT PRODUCTS OFFICER in Right shoulder via Subcutaneous. Ordered by Raquel, 7:50:48 Dulce. right upper chest 7:53:06 Surgical Incision Made. 7:53:08 A pocket was created at the L Upper Chest. 7:53:12 A device was explanted. A DEFIBRILLATOR, DYNAGEN MOVIE OPERATOR-D was connected and placed in the pocket. DEVICE WAS PLACED IN A C ORMATRIX 8:00:43 ENVELOPE SECOND Sponge And Instrument Count Done by Nury Manuel RT(R) TECH2. 8:08:56 Hypo's: 2, Sponges: 20, Bovie/scratch: 2 Sutures: 2, Blades: 1, Instruments: 26, Syveck Patches: 0 verified by eliseo jara 8:18:59 The pocket was closed. BY NURY Vora 8:19:01 Implant Procedure was performed. 8:19:07 A Bivent ICD Implant . (Dual) GEN CHANGE 8:19:51 Bedside Report will be given. 8:19:54 DOCU called. Spoke to OLGA 8:20:03 Case End 8:20:40 Steri-strips and a sterile dressing applied to site. FINAL Sponge And Instrument Count Done by Nury Manuel RT(R) TECH2. 8:20:47 Hypo's: 2, Sponges: 20, Bovie/scratch: 2 Sutures: 2, Blades: 1, Instruments: 26, Syveck Patches: 0 verified by eliseo jara 07/27/2017 8:23:18 AM Financial #: [id number] 7 8 Patient Name: SAILAJA HENNESSY Study #: [id number] Initial MD: Dulce García Date of : 1930 Study Date: 07/27/2017 Assessment: Final Case, HR=70 BPM, Rhythm=PACED, ZARZ=075/77 mmhg, Chest Pain=0, Edema=None, Color=Normal, Skin = Warm, Dry Right Pulses: Candido Ped=1 8:21:56 Left Pulses: Candido Ped=1 Neurological: State=Alert, Ox3, TALLEY Respiration: Resp=18 B/min, EbV4=117 %, O2=4 lpm 8:22:32 Sterile dressing applied to site 8:22:33 No case complications noted. 8:22:34 Cine recording checked. 8:22:35 Bedside Report will be given. 8:22:36 Implantable Device card placed in patient's chart. 8:22:48 Defibrillator and ground pads removed. Skin intact. 8:25:51 Patient moved to stretcher End Study - Contrast Media Used In Study Contrast Total Opened (mL) Total Used (mL) Total Wasted (mL) Unspecified 0 0 0 End Study - Maximum Contrast Load Max Contrast Load (mL) 387.1 End Study - Radiation Exposure Fluoro Time (minutes) 0.1 End Study - Patient Disposition Complications Transferred To Interventional Outcome No Telemetry Bed successful 07/27/2017 8:23:18 AM Financial #: [id number] 8 8
[2017-07-27] MEDS ORDERED: SODIUM CHLORIDE 0.9% FLUSH 10 ML FLUSH IV FLUSH SCH (09:00)
[2017-07-27] MEDS ORDERED: PROPOFOL 200 MG/20 ML AMP IV ONE (12:00)
[2017-07-27] MEDS ORDERED: PHENYLEPH/NS 1000 MCG/10 ML SYR IV ONE (12:00)
--- NOTE | 2017-07-27 20:45 | EKG ---
Date Performed: 07/27/2017 Time Performed: 06:32:58 PTAGE: 86 years EKG: Demand pacing. Lead(s) unsuitable for analysis: II Pacemaker rhythm - no further analysis A bnormal ECG PREVIOUS TRACING : 02/24/2017 09.46 Since the prior tracing, there has been no significant noyola DOCTOR: Ronaldo Cooper Interpretating Date/Time 07/27/2017 20:44:06
--- NOTE | 2017-08-04 16:03 | PD.CARD ---
Dual Defib Replacement PROCEDURE DATE: Jul 27, 2017 NYHA Classification: Class III (Moderate) Prevention: Primary Dual Defib Replacement PROCEDURE 1. Biventricular pacer defibrillator removal. 2. Biventricular pacer defibrillator replacement. 3. Pocket revision. Mr. Mata is a 86 -year-old male with congestive heart failure, ischemic cardiomyopathy, EF 25%, on optimal medical management, Biventricular pacer defibrillator currently end of life, admitted for generator replacement. The risks, the nature and the benefit of the procedure clearly stated to him. The risks include pneumothorax, cardiac perforation, stroke and even . He understood and agreed to proceed. PROCEDURE After written informed consent was obtained, the patient was brought to the EP lab where he was prepped and draped in the usual sterile fashion. Conscious sedation was initiated and maintained throughout the procedure by anesthesiologist. Once sedation was verified, the left infraclavicular area was anesthetized with 2% Xylocaine. Using #11 blade scalpel, a 3-cm incision was made over the existing generator. The incision was then taken down deep fascial layers generator exposed. Once exposed, it was removed from the pocket. Scar tissue was removed around the lead pocket revision was performed. Pocket was expanded. Then, the lead was disconnected from the generator and tested. After adequate pacing and sensing thresholds were obtained. The leads were connected to the new generator and placed into the pocket. I then proceeded with wound closure. The deep fascial layer was approximated using 2-0 Vicryl suture in a continuous fashion. The subcutaneous layer was approximated using 2-0 Vicryl suture in a continuous fashion. The subcuticular layer was approximated using 2-0 Vicryl suture in a continuous fashion. Dermabond adhesive was applied to the wound followed by sterile pressure dressing. There was no complication. The patient tolerated procedure. Blood loss minimal. 1. Explanted hardware: The explanted defibrillator is a [employer] model number N119, serial number [id number]. That was implanted in 2009. For information about existing lead please refer to previous dictation. 2. Implanted hardware: The implanted defibrillator generator is a [employer] System, model number G151, serial number [id number]. 3. Threshold: The right atrial pacing threshold in the bipolar mode was not measured. Patient in atrial fibrillation. F wave at 2.8mv. Lead impedance 420 ohms. The right ventricular pacing threshold in the bipolar mode was 1.4 volts at 0.4 milliseconds. Lead impedance 375 ohms. Patient is pacer dependent. The left ventricular pacing threshold in a bipolar mode was 2.2 V @ 1.0 ms. Lead impedance at 390ms. 4. Settings: The device is set in a VVIR 70, upper limit 120 beats per minute. LV first by 40 ms. Defibrillatory portioned for two zones, one zone for ventricular tachycardia between 160 to 240 beats per minute. Initial therapy consists of one burst of ATP, one ramp, 81%, 10 pulses, 10 ms decremental followed by 21 then 31 and all subsequent shocks at 41 defibrillatory shock. Second zone for ventricular fibrillation above 240 beats per minute, first therapy at 31 and all subsequent shocks at 41 joule defibrillatory shock. CONCLUSIONS Successful biventricular pacer defibrillator removal and replacement. COMMENT/RECOMMENDATIONS The patient will be transferred to telemetry unit. He will be observed, when stable can be discharged home Dulce García MD Aug 04, 2017 16:03
== END 2017-07-27 10:59 | disposition home or self-care (01) ==
LOC: HDOC 05:43 → HDIC 05:44 → HDOC 10:59
PROVIDERS: ATTEND Internal Medicine Interventional Cardiology
DX: Z45.02 Encounter for adjustment and management of automatic implantable cardiac defibrillator (principal); I11.0 Hypertensive heart disease with heart failure; I50.9 Heart failure, unspecified; I44.7 Left bundle-branch block, unspecified; E11.9 Type 2 diabetes mellitus without complications; E78.5 Hyperlipidemia, unspecified; I25.5 Ischemic cardiomyopathy; I65.29 Occlusion and stenosis of unspecified carotid artery; R53.83 Other fatigue; I25.2 Old myocardial infarction; Z79.01 Long term (current) use of anticoagulants; Z79.84 Long term (current) use of oral hypoglycemic drugs; Z87.891 Personal history of nicotine dependence; I47.9 Paroxysmal tachycardia, unspecified
CPT/HCPCS: 00530; 33264; 80048; 85025; 85610; 85730; 86850; 86900; 86901; 93005; C1882; J1580; J2370; J3370

== ENCOUNTER 2017-08-08 10:00 | Emergency (ER) | payer MEDICARE ==
[~2017-08-08] VITALS: Ht 172.7 cm; Wt 71.0 kg
[~2017-08-08 10:00] MED LIST changes: -B-12100T PO; +CEPH-460 PO; +HYDR-3288 PO; -SENN1TAB PO; -VITA500012 PO; -XIFA550T4 PO
[2017-08-08 10:35] VITALS: BP 133/63; PULSE 70; RESP 16; TEMP 97.8; O2SAT 97
[2017-08-08] MEDS ORDERED: SODIUM CHLORIDE 0.9% FLUSH 10 ML FLUSH IVF PRN (11:15)
[2017-08-08 11:21] VITALS: O2SAT 97
--- NOTE | 2017-08-08 11:29 | PD ---
HPI Chief Complaint: Pain: Acute or Chronic Time Seen by Provider: 11:01 Travel History International Travel<30 days: No Contact w/Intl Traveler<30days: No Traveled to known affect area: No History of Present Illness HPI 87-year-old male with history of hypertension, hyperlipidemia, diabetes mellitus , cardiomyopathy, pacemaker that was replaced 2 weeks ago, presents here with an episode of left-sided chest pain earlier this morning. Patient states it was an achy sensation across his left upper chest and started at 8 AM. He denied any radiation. He denied any palpitations. He denies any firing of his defibrillator. He reports he has had similar discomfort like this in the past however he is just here now to be checked out. There are no other complaints at time of my examination. PFSH Past Medical History Hx Anticoagulant Therapy: Yes Asthma: No Autoimmune Disease: No Blood Disorders: No Anxiety: No Depression: No Heart Rhythm Problems: Yes Cancer: No Cardiac Catheterization: Yes Cardiovascular Problems: Yes High Cholesterol: No Chemotherapy: No Chest Pain: Yes Congestive Heart Failure: Yes COPD: No Dementia: Yes Diabetes: Yes Patient Takes Glucophage: No Diminished Hearing: Yes Endocrine: Yes Gastrointestinal Disorders: No Genitourinary: Yes (kidney stones) Hypertension: Yes Implanted Vascular Access Dvce: Yes Kidney Stones: Yes Musculoskeletal: Yes (back surgery) Neurologic: No Psychiatric: No Reproductive: No Respiratory: No Myocardial Infarction: Yes Radiation Therapy: No Sleep Apnea: No Thyroid Disease: No Past Surgical History Abdominal Surgery: Yes (multiple hernia's) AICD: Yes Body Medical Devices: AICD/pacemaker Cardiac Surgery: Yes (pacer - apr 2002, 2005, 2018 cabg may 1989) Coronary Artery Bypass Graft: Yes Pacemaker: Yes Other Surgery: Yes Social History Alcohol Use: No Tobacco Use: No Substance Use: No Allergies-Medications (Allergen,Severity, Reaction): Coded Allergies: tetanus toxoid, adsorbed (Verified Allergy, Severe, 08/08/17) Reported Meds & Prescriptions Reported Meds & Active Scripts Active Zithromax Z-Darrin (Azithromycin) 250 Mg Dspk 250 Mg PO DIRECTED 500 MG (2 tabs) day 1, then 1 tab days 2-5. Reported [Mery-Sequels] 1 50 Mg BID Potassium Chloride ER (Potassium Chloride) 10 Meq Cap 10 Meq PO DAILY Torsemide 20 Mg Tab 20 Mg PO DAILY Eliquis (Apixaban) 2.5 Mg Tab 2.5 Mg PO BID Entresto (Sacubitril-Valsartan) 49-51 Mg Tab 1 Tab PO BID Januvia (Sitagliptin Phosphate) 100 Mg Tab 100 Mg PO DAILY Glimepiride 4 Mg Tab 4 Mg PO DAILY Take with breakfast or first main meal Isosorbide Mononitrate ER (Isosorbide Mononitrate) 60 Mg Tab 60 Mg PO DAILY Metformin (Metformin HCl) 500 Mg Tab 500 Mg PO BIDPC With meals Carvedilol 12.5 Mg Tab 12.5 Mg PO BID Review of Systems Except as stated in HPI: all other systems reviewed are Neg General / Constitutional: No: Fever, Chills HENT: No: Headaches, Lightheadedness Cardiovascular: Positive: Chest Pain or Discomfort (Earlier), No: Palpitations , Irregular Rhythm, Tachycardia Respiratory: No: Cough, Shortness of Breath Gastrointestinal: No: Nausea, Vomiting, Abdominal Pain Genitourinary: No: Frequency, Dysuria Musculoskeletal: No: Weakness Neurologic: No: Weakness, Headache, Change in Mentation Physical Exam Narrative GENERAL: Well-developed well-nourished male in no acute respiratory distress. SKIN: Focused skin assessment warm/dry. HEAD: Atraumatic. Normocephalic. EYES: No scleral icterus. No injection or drainage. ENT: No nasal bleeding or discharge. Mucous membranes pink and moist. NECK: Trachea midline. supple. CARDIOVASCULAR: Regular rate and rhythm. No murmur appreciated. On examination patient's right anterior chest wall, the pacer site appears clean and dry. There is no evidence of infection. The patient was complaining of discomfort on the opposite side. RESPIRATORY: No accessory muscle use. Clear to auscultation. Breath sounds equal bilaterally. GASTROINTESTINAL: Abdomen soft, non-tender, nondistended. MUSCULOSKELETAL: No obvious deformities. No clubbing. No cyanosis. No edema. NEUROLOGICAL: Awake and alert. No obvious cranial nerve deficits. Motor grossly within normal limits. Normal speech. Data Data Last Documented VS Vital Signs Date Time Temp Pulse Resp B/P (MAP) Pulse Ox O2 Delivery O2 Flow Rate FiO2 08/08/17 11:30 70 26 133/72 (92) 95 132/67 (88) 08/08/17 11:21 Room Air 08/08/17 10:35 97.8 Orders Orders Electrocardiogram (08/08/17 ) Basic Metabolic Panel (Bmp) (08/08/17 11:01) Ckmb (Isoenzyme) Profile (08/08/17 11:01) Complete Blood Count With Diff (08/08/17 11:01) Troponin I (08/08/17 11:01) Ecg Monitoring (08/08/17 11:01) Bilateral Bp Monitoring (08/08/17 11:01) Iv Access Insert/Monitor (08/08/17 11:01) Oximetry (08/08/17 11:01) Oxygen Administration (08/08/17 11:01) Sodium Chloride 0.9% Flush (Ns Flush) (08/08/17 11:15) Chest, Pa & Lat (08/08/17 11:01) Ed Discharge Order (08/08/17 12:15) Labs Laboratory Tests Test 08/08/17 11:15 White Blood Count 6.6 TH/MM3 Red Blood Count 3.34 MIL/MM3 Hemoglobin 11.2 GM/DL Hematocrit 33.2 % Mean Corpuscular Volume 99.1 FL Mean Corpuscular Hemoglobin 33.6 PG Mean Corpuscular Hemoglobin Concent 33.9 % Red Cell Distribution Width 15.0 % Platelet Count 248 TH/MM3 Mean Platelet Volume 8.6 FL Neutrophils (%) (Auto) 64.9 % Lymphocytes (%) (Auto) 19.7 % Monocytes (%) (Auto) 10.6 % Eosinophils (%) (Auto) 4.1 % Basophils (%) (Auto) 0.7 % Neutrophils # (Auto) 4.3 TH/MM3 Lymphocytes # (Auto) 1.3 TH/MM3 Monocytes # (Auto) 0.7 TH/MM3 Eosinophils # (Auto) 0.3 TH/MM3 Basophils # (Auto) 0.0 TH/MM3 CBC Comment DIFF FINAL Differential Comment Blood Urea Nitrogen 14 MG/DL Creatinine 0.98 MG/DL Random Glucose 152 MG/DL Calcium Level 9.1 MG/DL Sodium Level 136 MEQ/L Potassium Level 4.1 MEQ/L Chloride Level 100 MEQ/L Carbon Dioxide Level 30.3 MEQ/L Anion Gap 6 MEQ/L Estimat Glomerular Filtration Rate 73 ML/MIN Total Creatine Kinase 42 U/L Troponin I LESS THAN 0.02 NG/ML MDM Medical Decision Making Medical Screen Exam Complete: Yes Emergency Medical Condition: Yes Differential Diagnosis ACS versus muscular skeletal pain versus pneumonia versus defibrillator firing Narrative Course 87-year-old male presents with an episode earlier of chest discomfort on his left side. He is reported as an achy sensation. There is no exertional component. There is no relieving component. The patient wanted to leave initially since the discomfort had resolved. We were able to convince them to at least be seen and evaluated. EKG shows paced rhythm. Cardiac enzymes are within normal limits. Chest x-ray shows questionable bibasilar atelectasis with possible small pleural effusion. Given this, we will treat him with a Z- Darrin. I have offered admission for observation and both the patient and his do not wish to stay. I stated that we will discharge them with the antibiotic however if he develops any fevers, chills, return of pain, or any other reason that concerns them, to please return. They state that they will Diagnosis Primary Impression: Transient chest pain Additional Impressions: HTN (hypertension) DM (diabetes mellitus) Paced rhythm Scripts Azithromycin (Zithromax Z-Darrin) 250 Mg Dspk 250 MG PO DIRECTED for Infection, #1 DSPK 0 Refills 500 MG (2 tabs) day 1, then 1 tab days 2-5. Prov: Pito Lopez MD 08/08/17 Disposition: 01 DISCHARGE HOME Condition: Stable Pito Lopez MD Aug 08, 2017 11:29
[2017-08-08 11:30] VITALS: BP_SYST 132; BP_SYST 133; BP_DIAS 67; BP_DIAS 72; PULSE 70; RESP 26; O2SAT 95
[2017-08-08 11:34] LABS: AUTOMATED NEUTROPHIL # 4.3 TH/MM3 (1.8-7.7); BASOPHIL % 0.7 % (0.0-2.0); EOSINOPHIL # 0.3 TH/MM3 (0-0.4); EOSINOPHIL % 4.1 % (0.0-4.0); HEMATOCRIT 33.2 % (39.0-51.0); HEMOGLOBIN 11.2 GM/DL (13.0-17.0); LYMPH % 19.7 % (9.0-44.0); LYMPHOCYTE # 1.3 TH/MM3 (1.0-4.8); MEAN CELL VOLUME 99.1 FL (80.0-100.0); MEAN CORPUSCULAR HEMOGLOBIN 33.6 PG (27.0-34.0); MEAN CORPUSCULAR HGB CONC 33.9 % (32.0-36.0); MEAN PLATELET VOLUME 8.6 FL (7.0-11.0); MONO % 10.6 % (0.0-8.0); MONOCYTE # 0.7 TH/MM3 (0-0.9); NEUT % 64.9 % (16.0-70.0); PLATELET COUNT 248 TH/MM3 (150-450); RED BLOOD COUNT 3.34 MIL/MM3 (4.50-5.90); WHITE BLOOD COUNT 6.6 TH/MM3 (4.0-11.0)
[2017-08-08 11:56] LABS: BICARBONATE 30.3 MEQ/L (21.0-32.0); BLOOD UREA NITROGEN 14 MG/DL (7-18); CALCIUM 9.1 MG/DL (8.5-10.1); CHLORIDE 100 MEQ/L (98-107); CREATININE 0.98 MG/DL (0.60-1.30); GLOMERULAR FILTRATION RATE 73 ML/MIN (>89); GLUCOSE,RANDOM 152 MG/DL (74-106); SODIUM (NA) 136 MEQ/L (136-145)
[2017-08-08 12:00] LABS: TROPONIN I LESS THAN 0.02 NG/ML (0.02-0.05)
--- NOTE | 2017-08-08 12:05 | RADRPT ---
EXAM DATE/TIME: 08/08/2017 11:45 [facility] COMPARISON: CHEST SINGLE AP, February 24, 2017, 9:49. INDICATIONS : Pain in chest this morning, weakness, short of breath, recently had pacemaker changed MEDICAL HISTORY : Cardiovascular disease. Chronic obstructive pulmonary disease. Myocardial infarction. SURGICAL HISTORY : Pacemaker. CABG. ENCOUNTER: Initial ACUITY: 1 day PAIN SCORE: Non-responsive. LOCATION: Bilateral chest FINDINGS: AP and lateral views of the chest demonstrate stable mild enlargement of the cardiac silhouette with calcification of the aorta in this patient post median sternotomy. A right chest wall cardiac pacing device/AICD is present and there are biventricular leads. Lungs are underinflated with mild bibasilar opacity. There is also slight blunting of the costophrenic sulci. No pneumothorax is seen. The bones and soft tissues demonstrate no acute abnormality. CONCLUSION: Mild bibasilar opacity could represent atelectasis versus mild consolidation. There is also slight bl unting of the costophrenic sulci posteriorly suggesting a very small volume of pleural fluid. Hermes Blair MD on August 08, 2017 at 12:02 Board Certified Radiologist. This report was verified electronically.
[2017-08-08] MEDS ORDERED: ZITHTAB PO (12:14)
--- NOTE | 2017-08-09 22:56 | EKG ---
Date Performed: 08/08/2017 Time Performed: 10:52:14 PTAGE: 87 years EKG: ELECTRONIC VENTRICULAR PACEMAKER ABNORMAL RHYTHM ECG PREVIOUS TRACING : 07/27/2017 06.32 Since the prior tracing, there has been no significant noyola DOCTOR: Mojgan Dorsey Interpretating Date/Time 08/09/2017 22:53:22
== END 2017-08-08 12:44 | disposition home or self-care (01) ==
LOC: NEPC 10:00
DX: R07.9 Chest pain, unspecified (principal); E11.9 Type 2 diabetes mellitus without complications; I11.0 Hypertensive heart disease with heart failure; I50.9 Heart failure, unspecified; I25.2 Old myocardial infarction; Z79.01 Long term (current) use of anticoagulants; Z79.84 Long term (current) use of oral hypoglycemic drugs
CPT/HCPCS: 71046; 80048; 82550; 84484; 85025; 93005; 99285

== ENCOUNTER 2017-08-30 19:47 | Inpatient (IN) | payer MEDICARE ==
[~2017-08-30] VITALS: Ht 160 cm; Wt 71.7 kg
[~2017-08-30 19:47] MED LIST changes: -CEPH-460 PO; -HYDR-3288 PO; +ZITHTAB PO
[2017-08-30 19:58] VITALS: BP 135/69; PULSE 70; RESP 18; TEMP 99; O2SAT 96
--- NOTE | 2017-08-30 21:32 | RADRPT ---
EXAM DATE/TIME: 08/30/2017 20:24 [facility] COMPARISON: No previous studies available for comparison. INDICATIONS : Back pain, difficulty walking. RADIATION DOSE: 35.86 CTDIvol (mGy) MEDICAL HISTORY : Renal calculi. SURGICAL HISTORY : hernia repair ENCOUNTER: Initial ACUITY: 1 day PAIN SCALE: 5/10 LOCATION: low back TECHNIQUE: Volumetric scanning of the lumbar spine was performed. Multiplanar reconstructions in the sagittal, coronal and oblique axial planes were performed. Using automated exposure control and adjustment of the mA and/or kV according to patient size, radiation dose was kept as low as reasonably achievable t o obtain optimal diagnostic quality images. DICOM format image data is available electronically for review and comparison. FINDINGS: At T12-L1 there is no significant hematocrit At L1-2 there is a mild disc bulge with mild lateral recess and foraminal encroachment. At L2-3 there is a minimal retrolisthesis and a broad-based disc bulge with mild bilateral foraminal stenosis. Mild lateral recess stenosis. At L3-4 there is a broad-based disc protrusion and facet arthropathy resulting in focal severe canal and lateral recess stenosis and bilateral foraminal stenosis. At L4-5 there is a broad-based mild disc protrusion and facet arthropathy with a mild to moderate can al stenosis and moderate bilateral foraminal stenosis. At L5-S1 there is a broad-based central disc protrusion with moderate to severe bilateral foraminal s tenosis. CONCLUSION: 1. At L3-4 there is a broad-based disc protrusion and facet arthropathy with focal severe canal and l ateral recess stenosis and bilateral foraminal stenosis. 2. At L4-5 there is a mild to moderate central canal stenosis and moderate bilateral foraminal stenos is. 3. At L5-S1 there is a central disc extrusion with moderate to severe bilateral foraminal stenosis. 4. Patchy osteopenia. No acute fracture. Minimal degenerative retrolisthesis of L2 on L3. Cleveland Parmar MD on August 30, 2017 at 21:27 Board Certified Radiologist. This report was verified electronically.
--- NOTE | 2017-08-30 22:22 | PD ---
HPI . Neuro symptoms/deficit Chief Complaint: Neuro Symptoms/ Deficits Time Seen by Provider: 19:59 Travel History International Travel<30 days: No Contact w/Intl Traveler<30days: No Traveled to known affect area: No History of Present Illness HPI 87-year-old male presents with history from correction of having progressive intermittent worsening of bilateral leg weakness, difficulty ambulating over the past week, and patient started developing fecal incontinence over the past 2 days, all the above seem to be worsening over that time. Patient is a poor historian. There is no history of trauma and no history of fever. PFSH Past Medical History Narrative Medical Past medical history reviewed Hx Anticoagulant Therapy: Yes (Eliquis) Asthma: No Autoimmune Disease: No Blood Disorders: No Anxiety: No Depression: No Heart Rhythm Problems: Yes Cancer: No Cardiac Catheterization: Yes Cardiovascular Problems: Yes (HTN, PM) High Cholesterol: No Chemotherapy: No Chest Pain: Yes Congestive Heart Failure: Yes COPD: No Dementia: Yes Diabetes: Yes (Metformin) Patient Takes Glucophage: Yes Diminished Hearing: Yes Endocrine: Yes Gastrointestinal Disorders: No Genitourinary: Yes (kidney stones) Hypertension: Yes Implanted Vascular Access Dvce: Yes Kidney Stones: Yes Musculoskeletal: Yes (back surgery) Neurologic: No Psychiatric: No Reproductive: No Respiratory: No Myocardial Infarction: Yes Radiation Therapy: No Sleep Apnea: No Thyroid Disease: No Influenza Vaccination: Yes Past Surgical History Abdominal Surgery: Yes (multiple hernia's) AICD: Yes Body Medical Devices: AICD/pacemaker Cardiac Surgery: Yes (pacer - apr 2002, 2006, 2018 cabg may 1989) Coronary Artery Bypass Graft: Yes Pacemaker: Yes Other Surgery: Yes Social History Alcohol Use: No Tobacco Use: No Substance Use: No Allergies-Medications (Allergen,Severity, Reaction): Coded Allergies: tetanus toxoid, adsorbed (Verified Allergy, Severe, 08/08/17) Reported Meds & Prescriptions Reported Meds & Active Scripts Active Reported [Mery-Sequels] 1 50 Mg BID Potassium Chloride ER (Potassium Chloride) 10 Meq Cap 10 Meq PO DAILY Torsemide 20 Mg Tab 20 Mg PO DAILY Eliquis (Apixaban) 2.5 Mg Tab 2.5 Mg PO BID Entresto (Sacubitril-Valsartan) 49-51 Mg Tab 1 Tab PO BID Januvia (Sitagliptin Phosphate) 100 Mg Tab 100 Mg PO DAILY Glimepiride 4 Mg Tab 4 Mg PO DAILY Take with breakfast or first main meal Isosorbide Mononitrate ER (Isosorbide Mononitrate) 60 Mg Tab 60 Mg PO DAILY Metformin (Metformin HCl) 500 Mg Tab 500 Mg PO BIDPC With meals Carvedilol 12.5 Mg Tab 12.5 Mg PO BID Narrative Medication Allergies and medications reviewed Review of Systems ROS Limitations: Poor Historian Physical Exam Exam Limitations: Poor Historian Narrative GENERAL: Awake and alert, pleasant, baseline poor historian afebrile vital signs stable SKIN: Warm and dry. Color is normal diaphoresis cyanosis pallor HEAD: Atraumatic. Normocephalic. EYES: Pupils equal and round. No scleral icterus. No injection or drainage. ENT: No nasal bleeding or discharge. Mucous membranes pink and moist. NECK: Trachea midline. No JVD. CARDIOVASCULAR: Regular rate and rhythm. RESPIRATORY: No accessory muscle use. Clear to auscultation. Breath sounds equal bilaterally. GASTROINTESTINAL: Abdomen soft, non-tender, nondistended. Hepatic and splenic margins not palpable. MUSCULOSKELETAL: Extremities without clubbing, cyanosis, or edema. No obvious deformities. NEUROLOGICAL: Awake and alert. Reflexes positive bilateral lower extremities, sensation positive bilateral lower extremities, 4/5 weakness PSYCHIATRIC: Appropriate mood and affect pleasant Data Data Last Documented VS Vital Signs Date Time Temp Pulse Resp B/P (MAP) Pulse Ox O2 Delivery O2 Flow Rate FiO2 08/30/17 19:58 99.0 70 18 135/69 (91) [address] Lumb Spine W/O Contrast (08/30/17 ) Admit Order (Ed Use Only) (08/30/17 22:34) [facility] Medical Decision Making Medical Screen Exam Complete: Yes Emergency Medical Condition: Yes Medical Record Reviewed: Yes Differential Diagnosis Degenerative spinal disease, cauda equina syndrome, nerve compression Narrative Course CT lumbar spine ordered, patient has severe canal stenosis of L3-L4 level, mild at L4-L5, and then again severe stenosis foramina at L5-S1 possibly causing patient's intermittent but worsening cauda equina equivalent by history. Case discussed with Dr. Carreno from neurosurgery, patient is not a surgical candidate at this time. Patient unable to have MRI secondary to AICD. Case discussed with neurology Dr. Porter, available for consultation if necessary. Case discussed with hospitalist service, admitted for medical Diagnosis Primary Impression: Acute lumbar radiculopathy Admitting Information Admitting Physician Requests: Admit Ish Byrne MD Aug 30, 2017 22:22
[2017-08-30] MEDS ORDERED: NALOXONE HCL 0.4 MG/ML AMP IV PUSH PRN (22:45)
[2017-08-30] MEDS ORDERED: DEXAMETHASONE SOD PHOS 20 MG/5 ML VIAL IV PUSH ONE (22:45)
[2017-08-30] MEDS ORDERED: SODIUM CHLORIDE 0.9% FLUSH 10 ML FLUSH IV FLUSH PRN (22:45)
[2017-08-30 23:06] VITALS: BP 126/70; PULSE 70; RESP 16; O2SAT 97
[2017-08-30 23:21] LABS: BASOPHIL % 0.4 % (0.0-2.0); EOSINOPHIL # 0.1 TH/MM3 (0-0.4); EOSINOPHIL % 0.9 % (0.0-4.0); HEMATOCRIT 31.4 % (39.0-51.0); HEMOGLOBIN 10.6 GM/DL (13.0-17.0); LYMPH % 18.6 % (9.0-44.0); LYMPHOCYTE # 1.3 TH/MM3 (1.0-4.8); MEAN CELL VOLUME 100.1 FL (80.0-100.0); MEAN CORPUSCULAR HEMOGLOBIN 33.9 PG (27.0-34.0); MEAN CORPUSCULAR HGB CONC 33.9 % (32.0-36.0); MEAN PLATELET VOLUME 8.6 FL (7.0-11.0); MONO % 11.3 % (0.0-8.0); MONOCYTE # 0.8 TH/MM3 (0-0.9); NEUT % 68.8 % (16.0-70.0); PLATELET COUNT 205 TH/MM3 (150-450); RED BLOOD COUNT 3.13 MIL/MM3 (4.50-5.90); RED CELL DISTRIBUTION WIDTH 15.5 % (11.6-17.2); WHITE BLOOD COUNT 7.2 TH/MM3 (4.0-11.0)
[2017-08-30 23:30] LABS: INTERNATIONAL NORMALIZED RATIO 1.4 RATIO; PROTHROMBIN TIME - PATIENT 13.7 SEC (9.8-11.6)
[2017-08-30 23:39] LABS: ALBUMIN 3.2 GM/DL (3.4-5.0); AST (GOT) 20 U/L (15-37); BICARBONATE 25.6 MEQ/L (21.0-32.0); BLOOD UREA NITROGEN 20 MG/DL (7-18); CALCIUM 8.7 MG/DL (8.5-10.1); CHLORIDE 102 MEQ/L (98-107); GLOMERULAR FILTRATION RATE 71 ML/MIN (>89); GLUCOSE,RANDOM 228 MG/DL (74-106); SODIUM (NA) 138 MEQ/L (136-145)
[2017-08-30 23:40] LABS: ALT (GPT) 18 U/L (12-78)
[2017-08-30 23:43] LABS: ALKALINE PHOSPHATASE 142 U/L (45-117); TOTAL PROTEIN 6.6 GM/DL (6.4-8.2)
[2017-08-31] VITALS (7 sets, daily range): BP systolic 105–157; BP diastolic 60–68; PULSE 68–71; RESP 16–21; TEMP 97.4–99.3; O2SAT 95–98
[2017-08-31] MEDS ORDERED: DEXAMETHASONE SOD PHOS 20 MG/5 ML VIAL IV PUSH ONE (02:45)
[2017-08-31] MEDS ORDERED: DEXAMETHASONE SOD PHOS 4 MG/ML VIAL IV PUSH SCH ×3 (05:00→09:00)
[2017-08-31 05:47] LABS: AUTOMATED NEUTROPHIL # 5.4 TH/MM3 (1.8-7.7); BASOPHIL % 0.5 % (0.0-2.0); EOSINOPHIL # 0.1 TH/MM3 (0-0.4); EOSINOPHIL % 1.1 % (0.0-4.0); HEMATOCRIT 34.2 % (39.0-51.0); HEMOGLOBIN 11.4 GM/DL (13.0-17.0); LYMPH % 12.7 % (9.0-44.0); LYMPHOCYTE # 0.9 TH/MM3 (1.0-4.8); MEAN CELL VOLUME 99.7 FL (80.0-100.0); MEAN CORPUSCULAR HEMOGLOBIN 33.3 PG (27.0-34.0); MEAN CORPUSCULAR HGB CONC 33.4 % (32.0-36.0); MEAN PLATELET VOLUME 8.7 FL (7.0-11.0); MONO % 5.8 % (0.0-8.0); MONOCYTE # 0.4 TH/MM3 (0-0.9); NEUT % 79.9 % (16.0-70.0); PLATELET COUNT 192 TH/MM3 (150-450); RED BLOOD COUNT 3.43 MIL/MM3 (4.50-5.90); RED CELL DISTRIBUTION WIDTH 15.9 % (11.6-17.2); WHITE BLOOD COUNT 6.7 TH/MM3 (4.0-11.0)
[2017-08-31 06:07] LABS: BICARBONATE 26.6 MEQ/L (21.0-32.0); CALCIUM 8.9 MG/DL (8.5-10.1)
--- NOTE | 2017-08-31 06:34 | HHI.HP ---
HPI Service [facility] Primary Care Physician Gt Barry MD Admission Diagnosis Lumbar Radiculopathy Diagnoses: Travel History International Travel<30 Days: No Contact w/Intl Traveler <30 Da: No Traveled to Known Affected Are: No History of Present Illness hx from ER MD, ER Nurse and review of med records. also called over the phone Patient's esophagus an elderly gentleman who at the time of my exam is quite confused. Not able to give history. He does have baseline dementia. As per patient's , patient usually walks with a car. She lives with him and is able to take care of him as he is independent of most of the activities of daily living. However in the past 3 days, patient has had bowel symptoms. The describes that every time patient gets up to use the urinal, he would have fecal incontinence with loose stools. The stool is black color. She states though that his stool always have been black. She states that the main thing is that he is not able to get up on his feet to walk. She is no longer able to care for him because he cannot walk and she is really worried about this. The trouble with walking only started in the evening time yesterday. She also is noted that he was rubbing his stomach as though he look to be painful. She believes that he was nauseous. However did not vomit. She denies any urinary symptoms that she could notice. She states he usually was complaining if something is bothering him. 1 asked about shortness of breath, patient's believes that he has been short of breath in the past few days. Denies any cough or fever. Denies any peripheral edema. 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 Denies any complaints of dizziness. Review of Systems Except as stated in HPI: all other systems reviewed are Neg Past Family Social History Past Medical History htn dm cad - Dr Khris Cope cabg s/p aicd s/p ppm CHF- EF 25% non alcoholic cirrhosis Dementia Past Surgical History aicd ppm cabg coronary angiograms back surgery hernia sx Allergies: Coded Allergies: tetanus toxoid, adsorbed (Verified Allergy, Severe, 08/08/17) Family History father- lung cancer Social History no smoking/ no etoh abuse/ no drugs lives with Physical Exam Vital Signs Vital Signs Date Time Temp Pulse Resp B/P (MAP) Pulse Ox O2 Delivery O2 Flow Rate FiO2 08/31/17 05:07 98.0 70 16 124/64 (84) 95 Room Air 08/31/17 02:48 98.0 71 18 119/65 (83) 96 Room Air 08/30/17 23:06 70 16 126/70 (88) 97 Room Air 08/30/17 19:58 99.0 70 18 135/69 (91) 96 Physical Exam GENERAL: This is a well-nourished, well-developed patient, in no apparent distress. However, not able to talk when he tries, looks to be short of breath SKIN: No rashes, ecchymoses or lesions. Cool and dry. HEAD: Atraumatic. Normocephalic. No temporal or scalp tenderness. EYES:No scleral icterus. No injection or drainage. ENT: Nose without bleeding, purulent drainage or septal hematoma.. Airway patent. NECK: Trachea midline. No JVD Supple, nontender, no meningeal signs. CARDIOVASCULAR: Regular rate and rhythm without murmurs, gallops, or rubs. RESPIRATORY: decreased air entry bilaterally . No nia rales. GASTROINTESTINAL: Abdomen soft, non-tender, nondistended. No guarding. MUSCULOSKELETAL: Extremities without clubbing, cyanosis, or edema. No calf tenderness. NEUROLOGICAL: Awake. Sleepy. Quite difficult to get his attention to simple questions because patient is drowsy and sleepy. Motor and sensory grossly within normal limits. Normal speech. Laboratory Laboratory Tests Test 08/30/17 23:05 08/31/17 04:35 08/31/17 04:55 White Blood Count 7.2 6.7 Red Blood Count 3.13 3.43 Hemoglobin 10.6 11.4 Hematocrit 31.4 34.2 Mean Corpuscular Volume 100.1 99.7 Mean Corpuscular Hemoglobin 33.9 33.3 Mean Corpuscular Hemoglobin Concent 33.9 33.4 Red Cell Distribution Width 15.5 15.9 Platelet Count 205 192 Mean Platelet Volume 8.6 8.7 Neutrophils (%) (Auto) 68.8 79.9 Lymphocytes (%) (Auto) 18.6 12.7 Monocytes (%) (Auto) 11.3 5.8 Eosinophils (%) (Auto) 0.9 1.1 Basophils (%) (Auto) 0.4 0.5 Neutrophils # (Auto) 5.0 5.4 Lymphocytes # (Auto) 1.3 0.9 Monocytes # (Auto) 0.8 0.4 Eosinophils # (Auto) 0.1 0.1 Basophils # (Auto) 0.0 0.0 CBC Comment DIFF FINAL DIFF FINAL Differential Comment Prothrombin Time 13.7 Prothromb Time International Ratio 1.4 Activated Partial Thromboplast Time 34.6 Blood Urea Nitrogen 20 20 Creatinine 1.00 1.00 Random Glucose 228 241 Total Protein 6.6 Albumin 3.2 Calcium Level 8.7 8.9 Alkaline Phosphatase 142 Aspartate Amino Transf (AST/SGOT) 20 Alanine Aminotransferase (ALT/SGPT) 18 Total Bilirubin 1.0 Sodium Level 138 138 Potassium Level 3.8 4.0 Chloride Level 102 101 Carbon Dioxide Level 25.6 26.6 Anion Gap 10 10 Estimat Glomerular Filtration Rate 71 71 B-Type Natriuretic Peptide 1052 Result Diagram: 08/31/17 0435 08/31/17 0455 Imaging Last 48 hours Impressions Lumbar Spine CT 08/30/17 0000 Signed Impressions: Service Date/Time: Wednesday, August 30, 2017 20:24 - CONCLUSION: 1. At L3-4 there is a broad-based disc protrusion and facet arthropathy with focal severe canal and lateral recess stenosis and bilateral foraminal stenosis. 2. At L4-5 there is a mild to moderate central canal stenosis and moderate bilateral foraminal stenosis. 3. At L5-S1 there is a central disc extrusion with moderate to severe bilateral foraminal stenosis. 4. Patchy osteopenia. No acute fracture. Minimal degenerative retrolisthesis of L2 on L3. Cleveland Parmar MD Caprini VTE Risk Assessment Caprini VTE Risk Assessment: Mod/High Risk (score >= 2) Caprini Risk Assessment Model Point Value = 1 Point Value = 2 Point Value = 3 Point Value = 5 Age 41-60 Minor surgery BMI > 25 kg/m2 Swollen legs Varicose veins or History of unexplained or recurrent spontaneous Oral contraceptives or hormone replacement Sepsis (< 1 month) Serious lung disease, including pneumonia (< 1 month) Abnormal pulmonary function Acute myocardial infarction Congestive heart failure (< 1 month) History of inflammatory bowel disease Medical patient at bed rest Age 61-74 Arthroscopic surgery Major open surgery (> 45 min) Laparoscopic surgery (> 45 min) Malignancy Confined to bed (> 72 hours) Immobilizing plaster cast Central venous access Age >= 75 History of VTE Family history of VTE Factor V Leiden Prothrombin [id number] Lupus anticoagulant Anticardiolipin antibodies Elevated serum homocysteine Heparin-induced thrombocytopenia Other congenital or acquired thrombophilia Stroke (< 1 month) Elective arthroplasty Hip, pelvis, or leg fracture Acute spinal cord injury (< 1 month) Prophylaxis Regimen Total Risk Factor Score Risk Level Prophylaxis Regimen 0-1 Low Early ambulation 2 Moderate Order ONE of the following: *Sequential Compression Device (SCD) *Heparin 5000 units SQ BID 3-4 Higher Order ONE of the following medications: *Heparin 5000 units SQ TID *Enoxaparin/Lovenox 40 mg SQ daily (WT < 150 kg, CrCl > 30 mL/min) *Enoxaparin/Lovenox 30 mg SQ daily (WT < 150 kg, CrCl > 10-29 mL/min) *Enoxaparin/Lovenox 30 mg SQ BID (WT < 150 kg, CrCl > 30 mL/min) AND/OR *Sequential Compression Device (SCD) 5 or more Highest Order ONE of the following medications: *Heparin 5000 units SQ TID (Preferred with Epidurals) *Enoxaparin/Lovenox 40 mg SQ daily (WT < 150 kg, CrCl > 30 mL/min) *Enoxaparin/Lovenox 30 mg SQ daily (WT < 150 kg, CrCl > 10-29 mL/min) *Enoxaparin/Lovenox 30 mg SQ BID (WT < 150 kg, CrCl > 30 mL/min) AND *Sequential Compression Device (SCD) Assessment and Plan Assessment and Plan Impression: Fecal incontinence Diarrhea Generalized weakness Suspect underlying infection of intra-abdominal etiology Dyspnea on examination and also reported by . Suspect acute on chronic systolic heart failure htn dm cad - Dr Khris Cope cabg s/p aicd s/p ppm CHF- EF 25% non alcoholic cirrhosis Dementia Plan: BNP was added on to the blood in lab. It was found to be elevated at 2000. All the patient's lungs are quite clear except for decreased air entry, I would diurese patient when times with Lasix 40 mg IV now. He does look short of breath to me and on phone conversation with the , she also confirms that he has been short of breath. Echocardiogram in a.m. To decide further on need of diuresis based on clinical improvement. Send stool for cultures. Send stool for C. difficile. Hemoccult of the stool. Patient's hemoglobin is at its baseline. reports the patient always has been having black stools and this is not new. However he is on Eliquis. Obtain CT abdomen and pelvis to rule out any intra-abdominal etiologies since patient seems to be having abdominal pain. I do believe the patient's weakness is mainly from his medical illness such as diarrhea/dyspnea. Lumbar spine CT was done in emergency room. Report noted. Patient's case was discussed with neurosurgeon by ER physician. We would follow up on recommendations. Resume rest of his home medications. Hold torsemide since patient is on Lasix. We'll need to restart by a.m. Monitor fingersticks and cover with sliding scale. Hold oral hypoglycemics medications. DVT prophylaxis on Eliquis. GI prophylaxis on pantoprazole. Code Status Patient has living will according to the . It is difficult to discuss with her on CODE STATUS since she was driving here and I was also having coughing fits during the conversation. I would consult palliative care team to further explain the regarding end- of-life decisions. And will assign CODE STATUS based on wishes of patient and the . Discussed Condition With Patient's , ER physician, ER nurse Ricardo Carmona MD Aug 31, 2017 06:34
[2017-08-31] MEDS ORDERED: FUROSEMIDE 40 MG/4 ML VIAL IV PUSH ONE (06:45)
[2017-08-31] MEDS ORDERED: GLUCAGON 1 MG/ML VIAL OTHER PRN ×2 (07:15→13:15)
[2017-08-31] MEDS ORDERED: DEXTROSE 50% IN WATER 50 ML VIAL(D50) IV PUSH PRN ×2 (07:15→13:15)
--- NOTE | 2017-08-31 07:23 | RADRPT ---
EXAM DATE/TIME: 08/31/2017 06:54 [facility] COMPARISON: CHEST SINGLE AP, February 24, 2017, 9:49. INDICATIONS : Short of breath. MEDICAL HISTORY : Hypertension. Myocardial infarction. Congestive heart failure. Renal calculi. Diabetic. Dementia. SURGICAL HISTORY : Pacemaker. CABG. Back surgery. ENCOUNTER: Initial ACUITY: 1 day PAIN SCORE: Non-responsive. LOCATION: chest FINDINGS: A single view of the chest demonstrates cardiomegaly with previous median sternotomy. Right-sided pac emaker unchanged. Minimal left basilar density. Increase in pulmonary vascularity.. The cardiomedias tinal contours are unremarkable. Osseous structures are intact. CONCLUSION: Cardiomegaly with minimal left basilar density, not significantly changed. Mauricio Weinberg MD on August 31, 2017 at 7:20 Board Certified Radiologist. This report was verified electronically.
[2017-08-31] MEDS ORDERED: DIATRIZOATE MEGLUM/DIATRIZOATE SOD 9 ML CUP PO ONE (08:00)
[2017-08-31] MEDS: ISOSORBIDE MONONITRATE 60 MG CR TAB (IMDUR) PO SCH (09:15)
[2017-08-31] MEDS: SODIUM CHLORIDE 0.9% FLUSH 10 ML FLUSH IV FLUSH SCH ×2 (09:15→21:38)
[2017-08-31] MEDS: PANTOPRAZOLE SOD 40 MG DELAYED RELEASE TAB PO SCH (09:15)
[2017-08-31] MEDS: CARVEDILOL 12.5 MG TAB PO SCH ×2 (09:15→21:38)
[2017-08-31] MEDS: APIXABAN 2.5 MG TABLET PO SCH ×2 (09:15→21:38)
[2017-08-31] MEDS: POTASSIUM CHLORIDE 10 MEQ CAP PO SCH (09:16)
--- NOTE | 2017-08-31 09:34 | HHI.NSPN ---
Exam Results Vital Signs Date Time Temp Pulse Resp B/P (MAP) Pulse Ox O2 Delivery O2 Flow Rate FiO2 08/31/17 07:45 70 19 137/68 (91) 95 Nasal Cannula 2.00 08/31/17 05:07 98.0 Attending Statement Patient will need further w/u with CT myelogram of lumbar spine if he is medically cleared for any anticipated lumbar spine surgery. Please inform us accordingly. Pelon Carreno MD Aug 31, 2017 09:34
[2017-08-31] MEDS ORDERED: IOHEXOL 350 MG/ML 10 ML VIAL (for RAD DIAG) IVCONTRAST ONE (09:50)
--- NOTE | 2017-08-31 10:28 | RADRPT ---
EXAM DATE/TIME: 08/31/2017 09:38 [facility] COMPARISON: No previous studies available for comparison. INDICATIONS : Abdominan pain and diarrhea. IV CONTRAST: 95 cc Omnipaque 350 (iohexol) IV ORAL CONTRAST: No oral contrast ingested. RADIATION DOSE: 11.22 CTDIvol (mGy) MEDICAL HISTORY : Hypertension. Diabetes mellitus type 2. SURGICAL HISTORY : CABG Hernia repair. ENCOUNTER: Initial ACUITY: 1 day PAIN SCALE: 5/10 LOCATION: abdomen TECHNIQUE: Volumetric scanning of the abdomen and pelvis was performed. Using automated exposure control and ad justment of the mA and/or kV according to patient size, radiation dose was kept as low as reasonably achievable to obtain optimal diagnostic quality images. DICOM format image data is available electro nically for review and comparison. FINDINGS: LOWER LUNGS: Small bilateral effusions. Cardiomegaly. LIVER: Cirrhotic appearance. No evidence of biliary ductal dilatation or focal mass. Low-volume ascites incl uding minimal nonspecific fluid adjacent to the gallbladder. SPLEEN: Normal size without lesion. PANCREAS: Within normal limits. KIDNEYS: Cysts bilaterally. Parapelvic cysts present on the left. ADRENAL GLANDS: Within normal limits. VASCULAR: There is no aortic aneurysm. BOWEL/MESENTERY: The stomach, small bowel, and colon demonstrate no acute abnormality. There is no free intraperitone al air or fluid. ABDOMINAL WALL: Within normal limits. RETROPERITONEUM: There is no lymphadenopathy. BLADDER: No wall thickening or mass. REPRODUCTIVE: Within normal limits. INGUINAL: Trevin in the left inguinal region from previous hernia repair.. MUSCULOSKELETAL: Within normal limits for patient age. CONCLUSION: Cirrhotic liver appearance. Low-volume ascites. Small bilateral pleural effusions. Cardiomegaly. No f ocal acute findings in the abdomen or pelvis. Hermes Blankenship MD on August 31, 2017 at 10:20 Board Certified Radiologist. This report was verified electronically.
[2017-08-31] MEDS: SACUBITRIL/VALSARTAN 49 MG-51 MG TAB PO SCH ×2 (10:30→21:37)
[2017-08-31] MEDS ORDERED: INSULIN ASPART SUPPLEMENTAL SCALE SQ SCH (17:00)
[2017-08-31] MEDS: INSULIN ASPART SUPPLEMENTAL SCALE SQ SCH ×3 (19:00→21:45)
--- NOTE | 2017-08-31 19:27 | ECHRPT ---
Indication: HEART FAILURE CONCLUSIONS Normal left ventricular size. Mild concentric left ventricular hypertrophy. The left ventricular systolic function is mildly reduced with an estimated ejection fraction of 45%. The left atrial size is upper limits of normal. Mitral annular calcification is present. Moderate mitral annular calcification. Moderate mitral valve regurgitation. Aortic valve sclerosis is present. Moderate tricuspid regurgitation. BP: 137 / 68 HR: 70 Rhythm: MEASUREMENTS (Male / Female) Normal Values Technical Quality:Good 2D ECHO LV Diastolic Diameter PLAX 4.4 cm 4.2 - 5.9 / 3.9 - 5.3 cm LV Systolic Diameter PLAX 3.7 cm IVS Diastolic Thickness 1.3 cm 0.6 - 1.0 / 0.6 - 0.9 cm LVPW Diastolic Thickness 1.1 cm 0.6 - 1.0 / 0.6 - 0.9 cm LV Relative Wall Thickness 0.6 RV Internal Dim ED PLAX 2.3 cm LA Systolic Diameter LX 3.5 cm 3.0 - 4.0 / 2.7 - 3.8 cm DOPPLER AV Peak Velocity 162.0 cm/s AV Peak Gradient 10.5 mmHg MV Peak Velocity 123.0 cm/s MV Peak Gradient 6.1 mmHg MV Mean Velocity 68.3 cm/s MV Mean Gradient 2.0 mmHg MR Peak Velocity 522.0 cm/s MR Peak Gradient 109.0 mmHg Mitral E Point Velocity 99.3 cm/s Mitral A Point Velocity 43.2 cm/s Mitral E to A Ratio 2.3 TR Peak Velocity 289.0 cm/s TR Peak Gradient 33.4 mmHg FINDINGS LEFT VENTRICLE Normal left ventricular size. Mild concentric left ventricular hypertrophy. The left ventricular systolic function is mildly reduced with an estimated ejection fraction in the range of 45%. RIGHT VENTRICLE A pacemaker wire is noted. LEFT ATRIUM The left atrial size is upper limits of normal. RIGHT ATRIUM The right atrial size is normal. ATRIAL SEPTUM Normal atrial septal thickness without atrial level shunting by limited color doppler interrogation. AORTA The aortic root and proximal ascending aorta are normal in size on limited imaging. MITRAL VALVE Mitral annular calcification is present. Moderate mitral annular calcification. Moderate mitral valve regurgitation. AORTIC VALVE Aortic valve sclerosis is present. TRICUSPID VALVE Structurally normal tricuspid valve. No tricuspid valve stenosis. Moderate tricuspid regurgitation. PULMONARY VALVE The pulmonary valve is not well visualized. VESSELS The inferior vena cava is normal in size. PERICARDIUM No pericardial effusion. Mojgan Dorsey MD, FACC (Electronically Signed) Final Date:31 August 2017 19:26
[2017-09-01] VITALS (7 sets, daily range): BP systolic 110–120; BP diastolic 60–69; PULSE 70–86; RESP 17–20; TEMP 96–97.8; O2SAT 94–97
[2017-09-01] MEDS: CARVEDILOL 12.5 MG TAB PO SCH ×2 (08:42→20:43)
[2017-09-01] MEDS: POTASSIUM CHLORIDE 10 MEQ CAP PO SCH (08:42)
[2017-09-01] MEDS: PANTOPRAZOLE SOD 40 MG DELAYED RELEASE TAB PO SCH (08:42)
[2017-09-01] MEDS: SODIUM CHLORIDE 0.9% FLUSH 10 ML FLUSH IV FLUSH SCH ×2 (08:42→20:45)
[2017-09-01] MEDS: ISOSORBIDE MONONITRATE 60 MG CR TAB (IMDUR) PO SCH (08:42)
[2017-09-01] MEDS: APIXABAN 2.5 MG TABLET PO SCH ×2 (08:42→20:43)
[2017-09-01] MEDS: INSULIN ASPART SUPPLEMENTAL SCALE SQ SCH ×4 (08:43→20:45)
[2017-09-01] MEDS: SACUBITRIL/VALSARTAN 49 MG-51 MG TAB PO SCH ×2 (08:46→20:43)
--- NOTE | 2017-09-01 14:41 | HHI.PR ---
Subjective Remarks Follow-up for lower extremity weakness, fecal incontinence. Patient is currently doing well, sitting at the side of the bed. is at bedside and stated that patient actually looks better than when he came in. No fever or chills. Objective Vitals Vital Signs Date Time Temp Pulse Resp B/P (MAP) Pulse Ox O2 Delivery O2 Flow Rate FiO2 09/01/17 08:00 97.6 86 18 115/69 (84) 96 09/01/17 04:50 97.8 74 17 120/69 (86) 97 09/01/17 04:00 73 09/01/17 00:00 73 08/31/17 21:54 97.4 70 17 114/60 (78) 96 08/31/17 20:05 70 08/31/17 17:05 Result Diagram: 08/31/17 0435 08/31/17 0455 Imaging Last Impressions Chest X-Ray 08/31/17 0000 Signed Impressions: Service Date/Time: Thursday, August 31, 2017 06:54 - CONCLUSION: Cardiomegaly with minimal left basilar density, not significantly changed. Mauricio Weinberg MD Abdomen/Pelvis CT 08/31/17 0000 Signed Impressions: Service Date/Time: Thursday, August 31, 2017 09:38 - CONCLUSION: Cirrhotic liver appearance. Low-volume ascites. Small bilateral pleural effusions. Cardiomegaly. No focal acute findings in the abdomen or pelvis. Hermes Blankenship MD Lumbar Spine CT 08/30/17 0000 Signed Impressions: Service Date/Time: Wednesday, August 30, 2017 20:24 - CONCLUSION: 1. At L3-4 there is a broad-based disc protrusion and facet arthropathy with focal severe canal and lateral recess stenosis and bilateral foraminal stenosis. 2. At L4-5 there is a mild to moderate central canal stenosis and moderate bilateral foraminal stenosis. 3. At L5-S1 there is a central disc extrusion with moderate to severe bilateral foraminal stenosis. 4. Patchy osteopenia. No acute fracture. Minimal degenerative retrolisthesis of L2 on L3. Cleveland Parmar MD Objective Remarks GENERAL: Alert, NAD. SKIN: Warm and dry. HEAD: Normocephalic. EYES: No scleral icterus. No injection or drainage. NECK: Supple, trachea midline. No JVD or lymphadenopathy. CARDIOVASCULAR: Regular rate and rhythm without murmurs, gallops, or rubs. RESPIRATORY: Breath sounds equal bilaterally. No accessory muscle use. GASTROINTESTINAL: Abdomen soft, non-tender, nondistended. MUSCULOSKELETAL: No cyanosis, or edema. BACK: Nontender without obvious deformity. No CVA tenderness. A/P Assessment and Plan Mr. Mata is a pleasant 87-year-old who was admitted to the hospital due to fecal incontinence, generalized weakness especially lower extremity weakness. Patient has history of cardiomyopathy status post AICD placement. Patient also has dementia. -Generalized weakness -Lower extremity weakness -Lumbar radiculopathy -Patient improved with supportive care. Neurosurgery evaluated patient and requested further workup. However family does not want any invasive workup or surgery. CHF HTN -Continue albuterol 12.5 mg twice daily, and Crestor 1 tablet twice daily. DNR. Rolando Trinh DO Sep 01, 2017 2:41 pm
[2017-09-01 19:10] LABS: BILIRUBIN, URINE NEG (NEG); BLOOD, URINE NEG (NEG); GLUCOSE,URINE TRACE mg/dL (NEG); KETONE, URINE NEG (NEG); NITRITE,URINE NEG (NEG); PH, URINE 5.5 (5.0-8.5); URINE COLOR YELLOW (YELLW/STRAW); URINE LEUKOCYTE ESTERASE NEG (NEG)
[2017-09-01] MEDS ORDERED: INSULIN DETEMIR 100 UNITS/ML VIAL SQ SCH (21:00)
[2017-09-02] VITALS: BP 116/66; PULSE 76; RESP 20; TEMP 96.7; O2SAT 96
[2017-09-02 04:00] VITALS: BP 130/67; PULSE 70; RESP 20; TEMP 96.9; O2SAT 95
--- NOTE | 2017-09-02 07:48 | PD.PN.STU ---
Subjective Remarks Follow-up for bilateral lower extremity weakness and fecal incontinence. Patient states that he is doing well. He is resting comfortably in the chair at the time of my visit. States he is cautious about pushing too hard trying to get his strength back. Denies fever, chills. Objective Vitals Vital Signs Date Time Temp Pulse Resp B/P (MAP) Pulse Ox O2 Delivery O2 Flow Rate FiO2 09/02/17 04:00 96.9 70 20 130/67 (88) 95 09/02/17 00:00 96.7 76 20 116/66 (83) 96 09/01/17 20:00 96.7 70 20 116/63 (80) 96 09/01/17 19:45 70 09/01/17 16:00 96.0 82 18 110/60 (77) 94 09/01/17 08:00 97.6 86 18 115/69 (84) 96 I/O 09/01/17 09/01/17 09/01/17 09/02/17 09/02/17 09/02/17 07:00 15:00 23:00 07:00 15:00 23:00 Intake Total 360 ml 120 ml Output Total 200 ml Balance 360 ml -80 ml Intake Oral 360 ml 120 ml Output Urine Total 200 ml # Voids 3 # Bowel Movements 0 Result Diagram: 08/31/17 0435 08/31/17 0455 Imaging Last Impressions Chest X-Ray 08/31/17 0000 Signed Impressions: Service Date/Time: Thursday, August 31, 2017 06:54 - CONCLUSION: Cardiomegaly with minimal left basilar density, not significantly changed. Mauricio Weinberg MD Abdomen/Pelvis CT 08/31/17 0000 Signed Impressions: Service Date/Time: Thursday, August 31, 2017 09:38 - CONCLUSION: Cirrhotic liver appearance. Low-volume ascites. Small bilateral pleural effusions. Cardiomegaly. No focal acute findings in the abdomen or pelvis. Hermes Blankenship MD Lumbar Spine CT 08/30/17 0000 Signed Impressions: Service Date/Time: Wednesday, August 30, 2017 20:24 - CONCLUSION: 1. At L3-4 there is a broad-based disc protrusion and facet arthropathy with focal severe canal and lateral recess stenosis and bilateral foraminal stenosis. 2. At L4-5 there is a mild to moderate central canal stenosis and moderate bilateral foraminal stenosis. 3. At L5-S1 there is a central disc extrusion with moderate to severe bilateral foraminal stenosis. 4. Patchy osteopenia. No acute fracture. Minimal degenerative retrolisthesis of L2 on L3. Cleveland Parmar MD Objective Remarks GENERAL: Alert, orientedx1, NAD SKIN: Warm and dry. HEAD: Normocephalic. EYES: No scleral icterus. No injection or drainage. NECK: Supple, trachea midline. No JVD or lymphadenopathy. CARDIOVASCULAR: Regular rate and rhythm without murmurs, gallops, or rubs. RESPIRATORY: Breath sounds equal bilaterally. No accessory muscle use. GASTROINTESTINAL: Abdomen soft, non-tender, nondistended. MUSCULOSKELETAL: No cyanosis, or edema. BACK: Nontender without obvious deformity. No CVA tenderness. A/P Assessment and Plan Mr. Mata is a pleasant 87 year old male with a history of hypertension, diabetes, CAD, CHF, non-alcoholic cirrhosis and dementia who presented to the ED on 08/30 due to new onset bilateral leg weakness and fecal incontinence for 2 days. 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 He also has had a longstanding history of dyspnea. CT of lumbar area revealed protrusion, arthropathy, and stenosis at L3-L4, stenosis at L4-L5, and disc protrusion at L5-S1. Neurosurgery recommend CT myelogram if the patient would undertake surgery, however patient and his do not think surgery would be a good idea. CT abdomen and CXR revealed cardiomegaly. states patient is improved and even better than his baseline and states she would like to take him home. Lumbar radiculopathy -weakness resolving, patient was using depends regularly before this visit Dementia -patient back to his baseline per HTN/CHF -controlled, continue with Coreg 12.5 mg BID and Entresto 1 tab BID Diabetes -controlled on insulin Code status: DNR Discharge Planning D/C to home with home health Amilcar Modi Sep 02, 2017 07:48
[2017-09-02 08:00] VITALS: BP 132/65; PULSE 70; PULSE 76; RESP 18; TEMP 96; O2SAT 97
[2017-09-02] MEDS: INSULIN ASPART SUPPLEMENTAL SCALE SQ SCH ×2 (08:20→12:53)
[2017-09-02] MEDS: ISOSORBIDE MONONITRATE 60 MG CR TAB (IMDUR) PO SCH (08:50)
[2017-09-02] MEDS: POTASSIUM CHLORIDE 10 MEQ CAP PO SCH (08:50)
[2017-09-02] MEDS: APIXABAN 2.5 MG TABLET PO SCH (08:50)
[2017-09-02] MEDS: PANTOPRAZOLE SOD 40 MG DELAYED RELEASE TAB PO SCH (08:50)
[2017-09-02] MEDS: SACUBITRIL/VALSARTAN 49 MG-51 MG TAB PO SCH (08:51)
[2017-09-02] MEDS: CARVEDILOL 12.5 MG TAB PO SCH (08:51)
[2017-09-02] MEDS: SODIUM CHLORIDE 0.9% FLUSH 10 ML FLUSH IV FLUSH SCH (08:54)
[2017-09-02 12:00] VITALS: BP 123/68; PULSE 70; PULSE 80; RESP 16; TEMP 97.9; O2SAT 98
--- NOTE | 2017-09-02 13:59 | HHI.FF ---
Face to Face Verification Diagnosis: (1) Acute lumbar radiculopathy (2) HLD (hyperlipidemia) (3) Dementia (4) CHF (congestive heart failure) Physical Therapy Order: Evaluate and Treat, Improve ambulation, Strength and gait training Home Health Nursing Order: Medical education Signs/symptoms of disease process Nursing assessment with vital signs Home Health Aide Order: To Assist In: Bathing and personal care, director of digital platforms and meal prep I have seen patient Hermes Mata on 09/02/17. My clinical findings support the need for the requested home health care services because: Patient has SOB Deconditioned w/ increased weakness Limited ability to care for self Need for psychosocial assistance Impaired cognition/judgement High risk of falls Infection w/ risk of complications I certify that my clinical findings support that this patient is homebound because: Impaired cognitive ability/safety Unsteady gait/balance Unsafe to leave home unassisted Need for psychosocial assistance Unable to use public transportation Rolando Trinh DO Sep 02, 2017 1:59 pm
--- NOTE | 2017-09-02 14:07 | HHI.DS ---
Discharge Summary Admission Date Aug 31, 2017 at 7:05 am Discharge Date: Sep 02, 2017 Admitting Diagnosis Lumbar Radiculopathy (1) Generalized weakness ICD Code: R53.1 - Weakness (2) Dementia ICD Code: F03.90 - Unspecified dementia without behavioral disturbance Status: Acute (3) Cirrhosis of liver not due to alcohol ICD Code: K74.60 - Unspecified cirrhosis of liver Status: Chronic (4) CHF (congestive heart failure) ICD Code: I50.9 - Heart failure, unspecified Status: Chronic (5) DM (diabetes mellitus) ICD Code: E11.9 - Type 2 diabetes mellitus without complications Status: Chronic Procedures None Brief History - From Admission hx from ER MD, ER Nurse and review of med records. also called over the phone Patient's esophagus an elderly gentleman who at the time of my exam is quite confused. Not able to give history. He does have baseline dementia. As per patient's , patient usually walks with a car. She lives with him and is able to take care of him as he is independent of most of the activities of daily living. However in the past 3 days, patient has had bowel symptoms. The describes that every time patient gets up to use the urinal, he would have fecal incontinence with loose stools. The stool is black color. She states though that his stool always have been black. She states that the main thing is that he is not able to get up on his feet to walk. She is no longer able to care for him because he cannot walk and she is really worried about this. The trouble with walking only started in the evening time yesterday. She also is noted that he was rubbing his stomach as though he look to be painful. She believes that he was nauseous. However did not vomit. She denies any urinary symptoms that she could notice. She states he usually was complaining if something is bothering him. 1 asked about shortness of breath, patient's believes that he has been short of breath in the past few days. Denies any cough or fever. Denies any peripheral edema. 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 Denies any complaints of dizziness. CBC/BMP: 08/31/17 0435 08/31/17 0455 Significant Findings Laboratory Tests Test 08/30/17 23:05 08/31/17 04:35 08/31/17 04:55 08/31/17 17:20 Red Blood Count 3.13 MIL/MM3 (4.50-5.90) 3.43 MIL/MM3 (4.50-5.90) Hemoglobin 10.6 GM/DL (13.0-17.0) 11.4 GM/DL (13.0-17.0) Hematocrit 31.4 % (39.0-51.0) 34.2 % (39.0-51.0) Mean Corpuscular Volume 100.1 FL (80.0-100.0) Monocytes (%) (Auto) 11.3 % (0.0-8.0) Prothrombin Time 13.7 SEC (9.8-11.6) Activated Partial Thromboplast Time 34.6 SEC (24.3-30.1) Blood Urea Nitrogen 20 MG/DL (7-18) 20 MG/DL (7-18) Random Glucose 228 MG/DL (74-106) 241 MG/DL (74-106) Albumin 3.2 GM/DL (3.4-5.0) Alkaline Phosphatase 142 U/L (45-117) Estimat Glomerular Filtration Rate 71 ML/MIN (>89) 71 ML/MIN (>89) B-Type Natriuretic Peptide 1052 PG/ML (0-100) Neutrophils (%) (Auto) 79.9 % (16.0-70.0) Lymphocytes # (Auto) 0.9 TH/MM3 (1.0-4.8) Test 09/01/17 16:30 Imaging Last Impressions Chest X-Ray 08/31/17 0000 Signed Impressions: Service Date/Time: Thursday, August 31, 2017 06:54 - CONCLUSION: Cardiomegaly with minimal left basilar density, not significantly changed. Mauricio Weinberg MD Abdomen/Pelvis CT 08/31/17 0000 Signed Impressions: Service Date/Time: Thursday, August 31, 2017 09:38 - CONCLUSION: Cirrhotic liver appearance. Low-volume ascites. Small bilateral pleural effusions. Cardiomegaly. No focal acute findings in the abdomen or pelvis. Hermes Blankesnhip MD Lumbar Spine CT 08/30/17 0000 Signed Impressions: Service Date/Time: Wednesday, August 30, 2017 20:24 - CONCLUSION: 1. At L3-4 there is a broad-based disc protrusion and facet arthropathy with focal severe canal and lateral recess stenosis and bilateral foraminal stenosis. 2. At L4-5 there is a mild to moderate central canal stenosis and moderate bilateral foraminal stenosis. 3. At L5-S1 there is a central disc extrusion with moderate to severe bilateral foraminal stenosis. 4. Patchy osteopenia. No acute fracture. Minimal degenerative retrolisthesis of L2 on L3. Cleveland Parmar MD PE at Discharge GENERAL: Alert, NAD. SKIN: Warm and dry. HEAD: Normocephalic. EYES: No scleral icterus. No injection or drainage. NECK: Supple, trachea midline. No JVD or lymphadenopathy. CARDIOVASCULAR: Regular rate and rhythm without murmurs, gallops, or rubs. RESPIRATORY: Breath sounds equal bilaterally. No accessory muscle use. GASTROINTESTINAL: Abdomen soft, non-tender, nondistended. MUSCULOSKELETAL: No cyanosis, or edema. BACK: Nontender without obvious deformity. No CVA tenderness. Pt update on day of discharge Patient is doing well. of patient states that he is "better now than he was at home." Hospital Course Mr. Mata is a pleasant 87-year-old male with a history of CHF, hypertension, dementia who was admitted due to generalized weakness especially lower extremity weakness, fecal incontinence. C. difficile was negative. Patient was given supportive care. Due to fecal incontinence and lower extremity weakness, CT lumbar spine was done which did not show any cardiac renal syndrome. However there was some focal severe canal and lateral recess stenosis and bilateral foraminal stenosis. Neurosurgeon was consulted and requested further workup. However patient's indicated that they would not like to undergo any invasive workup or surgery. Patient was evaluated by physical therapy and he continued to do well. The day of discharge he tolerated well with physical therapy and physical therapy recommended home with home health. Patient was subsequently discharged home with home health PT. Pt Condition on Discharge: Good Discharge Disposition: Disch w/ Home Health Serv Discharge Time: <= 30 minutes Discharge Instructions DIET: Follow Instructions for: Heart Healthy Diet Speech Therapy-Diet Recommends: Regular Activities you can perform: Regular-No Restrictions Follow up Referrals: PCP Follow-up - 1 Week Continued Medications: Apixaban (Eliquis) 2.5 Mg Tab 2.5 MG PO BID for Blood Clot Prevention, TAB 0 Refills Carvedilol (Carvedilol) 12.5 Mg Tab 12.5 MG PO BID, TAB 0 Refills Glimepiride (Glimepiride) 4 Mg Tab 4 MG PO DAILY for Blood Sugar Management, TAB 0 Refills Take with breakfast or first main meal Isosorbide Mononitrate ER (Isosorbide Mononitrate ER) 60 Mg Tab 60 MG PO DAILY for Prevent Chest Pain, TAB 0 Refills Metformin (Metformin) 500 Mg Tab 500 MG PO BIDPC for Blood Sugar Management, TAB 0 Refills With meals Potassium Chloride ER (Potassium Chloride ER) 10 Meq Cap 10 MEQ PO DAILY for Electrolyte Replacement, CAP 0 Refills Sacubitril-Valsartan (Entresto) 49-51 Mg Tab 1 TAB PO BID for Heart Failure, TAB 0 Refills Sitagliptin (Januvia) 100 Mg Tab 100 MG PO DAILY for Blood Sugar Management, TAB 0 Refills Torsemide (Torsemide) 20 Mg Tab 20 MG PO DAILY, TAB 0 Refills [Mery-Sequels] () 1 50 MG BID Rolando Trinh DO Sep 02, 2017 2:07 pm
== END 2017-09-02 15:37 | disposition home health service (06) | DRG 552 ==
LOC: NEPC 19:47 → INTOOBSV 22:36 → NEDA 22:36 → NEDH 08-31 02:39 → OBSVTOIN 08-31 07:05 → N06B 08-31 17:12
PROVIDERS: ADMIT Hospitalist; ATTEND Hospitalist
DX: M51.17 Intervertebral disc disorders with radiculopathy, lumbosacral region (principal); I11.0 Hypertensive heart disease with heart failure; F03.90 Unspecified dementia, unspecified severity, without behavioral disturbance, psychotic disturbance, mood disturbance, and anxiety; I50.9 Heart failure, unspecified; I42.9 Cardiomyopathy, unspecified; R15.9 Full incontinence of feces; E11.9 Type 2 diabetes mellitus without complications; I25.2 Old myocardial infarction; M48.061 Spinal stenosis, lumbar region without neurogenic claudication; M48.07 Spinal stenosis, lumbosacral region; K74.60 Unspecified cirrhosis of liver; I25.10 Atherosclerotic heart disease of native coronary artery without angina pectoris; R19.7 Diarrhea, unspecified; R53.1 Weakness; H91.90 Unspecified hearing loss, unspecified ear; Z66 Do not resuscitate; Z79.01 Long term (current) use of anticoagulants; Z79.84 Long term (current) use of oral hypoglycemic drugs; Z88.7 Allergy status to serum and vaccine; Z95.1 Presence of aortocoronary bypass graft; Z95.810 Presence of automatic (implantable) cardiac defibrillator
CPT/HCPCS: 71045; 72131; 74177; 80048; 80053; 81001; 82272; 82948; 83880; 85025; 85610; 85730; 87493; 87506; 93306; G0378; G8987-GP; G8988-GP; G8996-GN; G8997-GN; J1100; J1815; J1940; Q9963; Q9967

== ENCOUNTER 2017-11-08 15:27 | Inpatient (IN) | payer MEDICARE ==
[~2017-11-08] VITALS: Ht 167.6 cm; Wt 68.0 kg
[~2017-11-08 15:27] MED LIST changes: -ZITHTAB PO
[2017-11-08 15:35] VITALS: BP 112/61; PULSE 75; RESP 28; TEMP 98.5; O2SAT 93
[2017-11-08 15:45] VITALS: O2SAT 96
--- NOTE | 2017-11-08 15:53 | PD ---
HPI Chief Complaint: Skin Problem Time Seen by Provider: 15:39 Travel History International Travel<30 days: No Contact w/Intl Traveler<30days: No Traveled to known affect area: No History of Present Illness HPI 87-year-old male with history of dementia, CHF, CABG, hypertension, nonalcoholic cirrhosis diabetes, presents emergency department with his for evaluation of multiple symptoms. Patient has been on 2 different oral antibiotics for left lower extremity cellulitis. states he has been on these for 7 or 8 days and the left lower extremity is becoming more erythematous and edematous. He has been increasingly weak over the last 2 days and having difficult time ambulating today. Patient has had diarrhea for the last 5 months, since June of this year but over the last 2 days he has had a decreased appetite, hardly eating anything. She states that his abdomen has become more distended. She is uncertain if the patient has had any fevers. She does tell me that the patient fell this morning and struck his left elbow. He did not strike his head. There is no loss of consciousness. He slipped in stool as he was walking to the restroom. Patient is a poor historian. The has no other symptoms to report at this time. PFSH Past Medical History Hx Anticoagulant Therapy: Yes (Eliquis) Asthma: No Autoimmune Disease: No Blood Disorders: No Anxiety: No Depression: No Heart Rhythm Problems: Yes Cancer: No Cardiac Catheterization: Yes Cardiovascular Problems: Yes (HTN, PM) High Cholesterol: No Chemotherapy: No Chest Pain: Yes Congestive Heart Failure: Yes COPD: No Dementia: Yes Diabetes: Yes (Metformin) Diminished Hearing: Yes Endocrine: Yes Gastrointestinal Disorders: No Genitourinary: Yes (kidney stones) Hypertension: Yes Implanted Vascular Access Dvce: Yes Kidney Stones: Yes Musculoskeletal: Yes (back surgery) Neurologic: No Psychiatric: No Reproductive: No Respiratory: No Myocardial Infarction: Yes Radiation Therapy: No Sleep Apnea: No Thyroid Disease: No Past Surgical History Abdominal Surgery: Yes (multiple hernia's) AICD: Yes Body Medical Devices: AICD/pacemaker Cardiac Surgery: Yes (pacer - apr 2002, 2006, 2018 cabg may 1989) Coronary Artery Bypass Graft: Yes Pacemaker: Yes Other Surgery: Yes Social History Alcohol Use: No Tobacco Use: No Substance Use: No Allergies-Medications (Allergen,Severity, Reaction): Coded Allergies: tetanus toxoid, adsorbed (Verified Allergy, Severe, 2/26/18) Reported Meds & Prescriptions Reported Meds & Active Scripts Active Reported [Mery-Sequels] 1 50 Mg BID Potassium Chloride ER (Potassium Chloride) 10 Meq Cap 10 Meq PO DAILY Torsemide 20 Mg Tab 20 Mg PO DAILY Eliquis (Apixaban) 2.5 Mg Tab 2.5 Mg PO BID Entresto (Sacubitril-Valsartan) 49-51 Mg Tab 1 Tab PO BID Januvia (Sitagliptin Phosphate) 100 Mg Tab 100 Mg PO DAILY Glimepiride 4 Mg Tab 4 Mg PO DAILY Take with breakfast or first main meal Isosorbide Mononitrate ER (Isosorbide Mononitrate) 60 Mg Tab 60 Mg PO DAILY Metformin (Metformin HCl) 500 Mg Tab 500 Mg PO BIDPC With meals Carvedilol 12.5 Mg Tab 12.5 Mg PO BID Review of Systems Except as stated in HPI: all other systems reviewed are Neg Physical Exam Narrative GENERAL: Well-nourished male patient, pleasant, appears nontoxic and in no acute distress SKIN: Focused skin assessment warm/dry. HEAD: Atraumatic. Normocephalic. EYES: Pupils equal and round. No scleral icterus. No injection or drainage. ENT: No nasal bleeding or discharge. Mucous membranes pink and somewhat dry. NECK: Trachea midline. No JVD. CARDIOVASCULAR: Regular rate and paced rhythm. 2/6 systolic murmur appreciated. RESPIRATORY: No accessory muscle use. Diminished to auscultation. Breath sounds equal bilaterally. GASTROINTESTINAL: Abdomen rotund, somewhat distended, soft. No grimacing, guarding, or rebound tenderness. MUSCULOSKELETAL: No obvious deformities. No clubbing. No cyanosis. 2+ left lower extremity edema with significant erythema distal to the knee extending to the foot. NEUROLOGICAL: Awake and alert. Unable to assess cranial nerves. Patient does move his extremities spontaneously. Data Data Last Documented VS Vital Signs Date Time Temp Pulse Resp B/P (MAP) Pulse Ox O2 Delivery O2 Flow Rate FiO2 11/08/17 15:45 96 Room Air 11/08/17 15:35 98.5 75 28 112/61 (78) Orders Orders Sepsis Workup Initiated (11/08/17 ) Complete Blood Count With Diff (11/08/17 15:48) Comprehensive Metabolic Panel (11/08/17 15:48) Prothrombin Time / Inr (Pt) (11/08/17 15:48) Act Partial Throm Time (Ptt) (11/08/17 15:48) Lactic Acid Sepsis Protocol (11/08/17 15:48) Lipase (11/08/17 15:48) Urinalysis - C+S If Indicated (11/08/17 15:48) Blood Culture (11/08/17 15:48) Chest, Single Ap (11/08/17 15:48) Blood Glucose (11/08/17 15:48) Ecg Monitoring (11/08/17 15:48) Iv Access Insert/Monitor (11/08/17 15:48) Oximetry (11/08/17 15:48) Oxygen Administration (11/08/17 15:48) Ct Abd/Pel W Iv Contrast(Rout) (11/08/17 15:48) Us Leg Venous Doppler (11/08/17 ) Elbow, Complete (4 Vws) (11/08/17 ) C Diff Toxin Pcr (11/08/17 15:48) Cath For Specimen (11/08/17 15:48) (Hub Use Only)Inp Phy Cons/Ref (11/08/17 ) Sodium Chlorid 0.9% 500 Ml Inj (Ns 500 M (11/08/17 18:15) B-Type Natriuretic Peptide (11/08/17 18:12) Iodixanol 320 Inj (Rad Ct) (Visipaque 32 (11/08/17 18:47) Labs Laboratory Tests Test 11/08/17 15:50 11/08/17 17:30 White Blood Count 6.9 TH/MM3 Red Blood Count 3.63 MIL/MM3 Hemoglobin 12.0 GM/DL Hematocrit 35.4 % Mean Corpuscular Volume 97.6 FL Mean Corpuscular Hemoglobin 33.1 PG Mean Corpuscular Hemoglobin Concent 33.9 % Red Cell Distribution Width 15.7 % Platelet Count 283 TH/MM3 Mean Platelet Volume 8.9 FL Neutrophils (%) (Auto) 64.4 % Lymphocytes (%) (Auto) 20.5 % Monocytes (%) (Auto) 11.5 % Eosinophils (%) (Auto) 2.9 % Basophils (%) (Auto) 0.7 % Neutrophils # (Auto) 4.4 TH/MM3 Lymphocytes # (Auto) 1.4 TH/MM3 Monocytes # (Auto) 0.8 TH/MM3 Eosinophils # (Auto) 0.2 TH/MM3 Basophils # (Auto) 0.0 TH/MM3 CBC Comment DIFF FINAL Differential Comment Prothrombin Time 14.4 SEC Prothromb Time International Ratio 1.4 RATIO Activated Partial Thromboplast Time 34.8 SEC Blood Urea Nitrogen 41 MG/DL Creatinine 1.65 MG/DL Random Glucose 128 MG/DL Total Protein 7.5 GM/DL Albumin 3.7 GM/DL Calcium Level 9.3 MG/DL Alkaline Phosphatase 126 U/L Aspartate Amino Transf (AST/SGOT) 28 U/L Alanine Aminotransferase (ALT/SGPT) 18 U/L Total Bilirubin 1.0 MG/DL Sodium Level 136 MEQ/L Potassium Level 3.7 MEQ/L Chloride Level 97 MEQ/L Carbon Dioxide Level 29.2 MEQ/L Anion Gap 10 MEQ/L Estimat Glomerular Filtration Rate 40 ML/MIN Lactic Acid Level 1.5 mmol/L Lipase 146 U/L Urine Color YELLOW Urine Turbidity CLEAR Urine pH 5.0 Urine Specific [place] 1.009 Urine Protein NEG mg/dL Urine Glucose (UA) NEG mg/dL Urine Ketones NEG mg/dL Urine Occult Blood NEG Urine Nitrite NEG Urine Bilirubin NEG Urine Urobilinogen LESS THAN 2.0 MG/DL Urine Leukocyte Esterase NEG Urine RBC LESS THAN 1 /hpf Urine Squamous Epithelial Cells <1 /hpf Urine Hyaline Casts 11 /lpf Microscopic Urinalysis Comment CATH-CULT NOT IND MDM Medical Decision Making Medical Screen Exam Complete: Yes Emergency Medical Condition: Yes Medical Record Reviewed: Yes Differential Diagnosis Electrolyte abnormality versus dehydration versus cellulitis versus sepsis versus UTI Narrative Course 87-year-old male presents emergency department for evaluation. He is accompanied by his who provides most of the history. Patient appears nontoxic. His mucous membranes are somewhat dry. His abdomen is distended but soft and normoactive bowel sounds. Patient's left lower extremity is with 2+ edema and erythema distal to the knee extending to the foot. Laboratory Tests Test 11/08/17 15:50 11/08/17 17:30 White Blood Count 6.9 TH/MM3 Red Blood Count 3.63 MIL/MM3 Hemoglobin 12.0 GM/DL Hematocrit 35.4 % Mean Corpuscular Volume 97.6 FL Mean Corpuscular Hemoglobin 33.1 PG Mean Corpuscular Hemoglobin Concent 33.9 % Red Cell Distribution Width 15.7 % Platelet Count 283 TH/MM3 Mean Platelet Volume 8.9 FL Neutrophils (%) (Auto) 64.4 % Lymphocytes (%) (Auto) 20.5 % Monocytes (%) (Auto) 11.5 % Eosinophils (%) (Auto) 2.9 % Basophils (%) (Auto) 0.7 % Neutrophils # (Auto) 4.4 TH/MM3 Lymphocytes # (Auto) 1.4 TH/MM3 Monocytes # (Auto) 0.8 TH/MM3 Eosinophils # (Auto) 0.2 TH/MM3 Basophils # (Auto) 0.0 TH/MM3 CBC Comment DIFF FINAL Differential Comment Prothrombin Time 14.4 SEC Prothromb Time International Ratio 1.4 RATIO Activated Partial Thromboplast Time 34.8 SEC Blood Urea Nitrogen 41 MG/DL Creatinine 1.65 MG/DL Random Glucose 128 MG/DL Total Protein 7.5 GM/DL Albumin 3.7 GM/DL Calcium Level 9.3 MG/DL Alkaline Phosphatase 126 U/L Aspartate Amino Transf (AST/SGOT) 28 U/L Alanine Aminotransferase (ALT/SGPT) 18 U/L Total Bilirubin 1.0 MG/DL Sodium Level 136 MEQ/L Potassium Level 3.7 MEQ/L Chloride Level 97 MEQ/L Carbon Dioxide Level 29.2 MEQ/L Anion Gap 10 MEQ/L Estimat Glomerular Filtration Rate 40 ML/MIN Lactic Acid Level 1.5 mmol/L Lipase 146 U/L Urine Color YELLOW Urine Turbidity CLEAR Urine pH 5.0 Urine Specific [place] 1.009 Urine Protein NEG mg/dL Urine Glucose (UA) NEG mg/dL Urine Ketones NEG mg/dL Urine Occult Blood NEG Urine Nitrite NEG Urine Bilirubin NEG Urine Urobilinogen LESS THAN 2.0 MG/DL Urine Leukocyte Esterase NEG Urine RBC LESS THAN 1 /hpf Urine Squamous Epithelial Cells <1 /hpf Urine Hyaline Casts 11 /lpf Microscopic Urinalysis Comment CATH-CULT NOT IND Last Impressions Chest X-Ray 11/08/171547 Signed Impressions: CONCLUSION: 1. Cardiomegaly with subtle positive fluid balance. 2. Minimal left lower lobe airspace disease, likely atelectasis. Abdomen/Pelvis CT 11/08/171547 Signed Impressions: CONCLUSION: 1. Compared to the prior examination, no significant changes are demonstrated. 2. The liver appears to be cirrhotic. No significant ascites is seen. 3. Bilateral subcentimeter renal calculi not causing obstruction. 4. A few benign stable left renal cyst. 5. Moderate amount of stool and air throughout the colon without evidence of o bstruction or inflammatory changes. Lower Extremity Ultrasound 11/08/17 0000 Signed Impressions: CONCLUSION: Negative for deep venous thrombosis. Tyrese Gaviria MD FACR Elbow X-Ray 11/08/17 0000 Signed Impressions: CONCLUSION: No acute left elbow abnormality is identified. Imaging studies and lab work is reviewed. I discussed the patient my attending physician. Due to near completion of oral antibiotics outpatient and worsening left lower extremity cellulitis, patient will be admitted for failed outpatient treatment. Calls placed to [facility] for admission. Diagnosis Primary Impression: Left leg cellulitis Additional Impressions: Failure of outpatient treatment Generalized weakness Dementia Qualified Codes: F03.90 - Unspecified dementia without behavioral disturbance Admitting Information Admitting Physician Requests: Admit Condition: Stable April Petersen SULEMA November 08, 2017 15:53
[2017-11-08 16:23] LABS: AUTOMATED NEUTROPHIL # 4.4 TH/MM3 (1.8-7.7); BASOPHIL % 0.7 % (0.0-2.0); EOSINOPHIL # 0.2 TH/MM3 (0-0.4); EOSINOPHIL % 2.9 % (0.0-4.0); HEMATOCRIT 35.4 % (39.0-51.0); LYMPH % 20.5 % (9.0-44.0); LYMPHOCYTE # 1.4 TH/MM3 (1.0-4.8); MEAN CELL VOLUME 97.6 FL (80.0-100.0); MEAN CORPUSCULAR HEMOGLOBIN 33.1 PG (27.0-34.0); MEAN CORPUSCULAR HGB CONC 33.9 % (32.0-36.0); MEAN PLATELET VOLUME 8.9 FL (7.0-11.0); MONO % 11.5 % (0.0-8.0); MONOCYTE # 0.8 TH/MM3 (0-0.9); NEUT % 64.4 % (16.0-70.0); PLATELET COUNT 283 TH/MM3 (150-450); RED BLOOD COUNT 3.63 MIL/MM3 (4.50-5.90); RED CELL DISTRIBUTION WIDTH 15.7 % (11.6-17.2); WHITE BLOOD COUNT 6.9 TH/MM3 (4.0-11.0)
--- NOTE | 2017-11-08 16:25 | RADRPT ---
EXAM DATE: 11/08/2017 4:14 PM EDT AGE/SEX: 87 years / Male INDICATIONS: Chest pain, to anterior chest. CLINICAL DATA: This is the patient's initial encounter. Patient reports that signs and symptoms have been present for 1 day and indicates a pain score of 0/10. MEDICAL/SURGICAL HISTORY: . Hypertension. Myocardial infarction. Congestive heart failure. Aníbal al calculi. Diabetic. Dementia. . Pacemaker. CABG. Back surgery. COMPARISON: [facility] – [place], CHEST SINGLE AP, 08/31/2017. . FINDINGS: Stable multi-AICD device and postsurgical features of prior median sternotomy. Cardiac silhouette rem ains enlarged with diffuse interstitial prominence. Minimal left lung base airspace disease. No new f ocal pleural or parenchymal opacities. Remainder of the exam is unchanged. CONCLUSION: 1. Cardiomegaly with subtle positive fluid balance. 2. Minimal left lower lobe airspace disease, likely atelectasis. Electronically signed by: Tevin Gordon MD 11/08/2017 4:23 PM EDT
[2017-11-08 16:26] LABS: INTERNATIONAL NORMALIZED RATIO 1.4 RATIO; PROTHROMBIN TIME - PATIENT 14.4 SEC (9.8-11.6)
--- NOTE | 2017-11-08 16:26 | RADRPT ---
EXAM DATE: 11/08/2017 4:17 PM EDT AGE/SEX: 87 years / Male INDICATIONS: Pain in elbow, laceration to posterior elbow. CLINICAL DATA: This is the patient's initial encounter. Patient reports that signs and symptoms have been present for 1 day and indicates a pain score of 3/10. MEDICAL/SURGICAL HISTORY: None. None. Best images possible. COMPARISON: No prior [place] exams available for comparison. FINDINGS: 4 views of the left elbow demonstrate no fracture or dislocation. Joint effusion cannot be excluded s heather a true lateral view was not obtained. However, no definite effusion is seen. IV tubing is presen t in the antecubital fossa region. No soft tissue abnormality or concerning radiopaque foreign body i s seen. CONCLUSION: No acute left elbow abnormality is identified. Electronically signed by: Hermes Blair MD 11/08/2017 4:25 PM EDT
[2017-11-08 16:45] LABS: ALBUMIN 3.7 GM/DL (3.4-5.0); AST (GOT) 28 U/L (15-37); BICARBONATE 29.2 MEQ/L (21.0-32.0); BLOOD UREA NITROGEN 41 MG/DL (7-18); CALCIUM 9.3 MG/DL (8.5-10.1); CHLORIDE 97 MEQ/L (98-107); CREATININE 1.65 MG/DL (0.60-1.30); GLOMERULAR FILTRATION RATE 40 ML/MIN (>89); GLUCOSE,RANDOM 128 MG/DL (74-106); SODIUM (NA) 136 MEQ/L (136-145)
[2017-11-08 16:46] LABS: ALT (GPT) 18 U/L (12-78)
[2017-11-08 16:48] LABS: ALKALINE PHOSPHATASE 126 U/L (45-117); TOTAL PROTEIN 7.5 GM/DL (6.4-8.2)
[2017-11-08 18:12] LABS: BILIRUBIN, URINE NEG (NEG); BLOOD, URINE NEG (NEG); GLUCOSE,URINE NEG (NEG); HYALINE CAST, URINE 11 /lpf (RARE); KETONE, URINE NEG (NEG); NITRITE,URINE NEG (NEG); SQUAMOUS EPITHELIAL CELL URINE <1 /hpf (0-5); URINE COLOR YELLOW (YELLW/STRAW); URINE LEUKOCYTE ESTERASE NEG (NEG)
--- NOTE | 2017-11-08 18:12 | RADRPT ---
EXAM DATE: 11/08/2017 6:05 PM EDT AGE/SEX: 87 years / Male INDICATIONS: Left leg swelling. CLINICAL DATA: This is the patient's initial encounter. Patient reports that signs and symptoms have been present for 4 - 6 days and indicates a pain score of 3/10. MEDICAL/SURGICAL HISTORY: Hypertension. Congestive heart failure. Dementia. Heart attack. Anti coagulant therapy. Irregular heart beat. Kidney stones. Diabetes. Blood transfusions. CABG. Pacemak er placement. Coronary artery bypass graft. Cardiac catheterization. Hernia repair. Back surgery. Fin ann surgery. COMPARISON: No prior [facility] exams available for comparison. TECHNIQUE: Venous ultrasound of both lower extremities was performed from the inguinal ligament to t he proximal calf. Real-time, color Doppler and spectral tracing, compression and augmentation techni ques were used. FINDINGS: There is normal compressibility of the deep venous system from the inguinal region to the proximal ca lf. No echogenic clot is seen in the lumen of the common femoral, femoral, popliteal, and posterior tibial veins. There is a normal response of the venous system to proximal and distal augmentation an d respiration. Minimal soft tissue swelling evident. CONCLUSION: Negative for deep venous thrombosis. Tyrese Gaviria MD FACR Electronically signed by: yTrese Gavriia MD 11/08/2017 6:11 PM EDT
[2017-11-08] MEDS ORDERED: SODIUM CHLORID 0.9% 500 ML INJ 500 ML IV ONE (18:15)
[2017-11-08] MEDS ORDERED: IODIXANOL 320 MG/ML 50 ML VIAL (for Rad CT) IVCONTRAST ONE (18:47)
--- NOTE | 2017-11-08 18:48 | RADRPT ---
EXAM DATE: 11/08/2017 6:33 PM EDT AGE/SEX: 87 years / Male INDICATIONS: Abdominal pain, diarrhea. CLINICAL DATA: This is the patient's initial encounter. Patient reports that signs and symptoms have been present for 1 week and indicates a pain score of 7/10. MEDICAL/SURGICAL HISTORY: Cardiovascular disease. Hypertension. Renal calculi. Diabetes, dem entia. Pacemaker. ORAL CONTRAST: No oral contrast ingested. RADIATION DOSE: 8.10 CTDI (mGy) [place] [facility] [place]AST[place] 08/31/2017. . TECHNIQUE: Multiple contiguous axial images were obtained through the abdomen and pelvis following b olus infusion of 66 ml Visipaque 320 (iodixanol) nonionic water-soluble contrast as a single exam d ose. No oral contrast ingested. Using automated exposure control and adjustment of the mA and/or kV according to patient size, the radiation dose was kept as low as reasonably achievable to obtain opti mal diagnostic quality images. FINDINGS: Lower Lungs: The visualized lower lungs are clear. The heart size is diffusely enlarged but stable. Liver: The liver continues to be heterogeneous characteristic of cirrhosis. No dilated biliary ducts. The gallbladder is grossly unremarkable. The previously noted small amount of ascites adjacent to th e liver is improved on today's study. Spleen: Homogeneous density without enlargement. Pancreas: Unremarkable without mass or calcification. Kidneys: Normal in size and shape. No evidence of mass or hydronephrosis. There continue to be sever al tiny 2-3 mm nonobstructing stones in the right kidney. There is a 5 mm nonobstructing stone in the midpole the left kidney. These findings are stable compared to the prior study. A few stable benign- appearing left renal cysts are again demonstrated. The largest cyst measures 1.5 cm along the upper p ole the left kidney. Stable left parapelvic cyst. Adrenal Glands: Unremarkable. Aorta: Atherosclerotic changes. No aneurysmal dilatation. Bowel/Mesentery: The bowel loops are grossly unremarkable. The cecum and sigmoid colon have a normal configuration. There is a moderate amount of stool and air throughout the colon. No definite inflamm atory changes are seen. No evidence of any ascites. There is some scattered diverticula along the sig moid colon without inflammatory changes. The appendix is unremarkable. Abdominal Wall: Intact. Retroperitoneum: No evidence of adenopathy in the retrocrural, para-aortic, or deep pelvic regions. Bladder: Contours are smooth. Reproductive Organs: No abnormal masses or calcifications seen. Inguinal: The inguinal region is unremarkable without evidence of adenopathy. Bony Structures: Primary bony degenerative changes. No significant changes compared to the prior rosana dy. CONCLUSION: 1. Compared to the prior examination, no significant changes are demonstrated. 2. The liver appears to be cirrhotic. No significant ascites is seen. 3. Bilateral subcentimeter renal calculi not causing obstruction. 4. A few benign stable left renal cyst. 5. Moderate amount of stool and air throughout the colon without evidence of obstruction or inflamma tory changes. Electronically signed by: Walter Mejia MD 11/08/2017 6:47 PM EDT
--- NOTE | 2017-11-08 19:12 | PD ---
Physical Exam Narrative GENERAL: Well-nourished male patient, pleasant, appears nontoxic and in no acute distress SKIN: Focused skin assessment warm/dry. HEAD: Atraumatic. Normocephalic. EYES: Pupils equal and round. No scleral icterus. No injection or drainage. ENT: No nasal bleeding or discharge. Mucous membranes pink and somewhat dry. NECK: Trachea midline. No JVD. CARDIOVASCULAR: Regular rate and paced rhythm. RESPIRATORY: No accessory muscle use. MUSCULOSKELETAL: No obvious deformities. No clubbing. No cyanosis. 2+ left lower extremity edema with significant erythema distal to the knee extending to the foot. NEUROLOGICAL: Awake, moves all extremities, clear speech Data Data Last Documented VS Vital Signs Date Time Temp Pulse Resp B/P (MAP) Pulse Ox O2 Delivery O2 Flow Rate FiO2 11/08/17 15:45 96 Room Air 11/08/17 15:35 98.5 75 28 112/61 (78) Orders Orders Sepsis Workup Initiated (11/08/17 ) Complete Blood Count With Diff (11/08/17 15:48) Comprehensive Metabolic Panel (11/08/17 15:48) Prothrombin Time / Inr (Pt) (11/08/17 15:48) Act Partial Throm Time (Ptt) (11/08/17 15:48) Lactic Acid Sepsis Protocol (11/08/17 15:48) Lipase (11/08/17 15:48) Urinalysis - C+S If Indicated (11/08/17 15:48) Blood Culture (11/08/17 15:48) Chest, Single Ap (11/08/17 15:48) Blood Glucose (11/08/17 15:48) Ecg Monitoring (11/08/17 15:48) Iv Access Insert/Monitor (11/08/17 15:48) Oximetry (11/08/17 15:48) Oxygen Administration (11/08/17 15:48) Ct Abd/Pel W Iv Contrast(Rout) (11/08/17 15:48) Us Leg Venous Doppler (11/08/17 ) Elbow, Complete (4 Vws) (11/08/17 ) C Diff Toxin Pcr (11/08/17 15:48) Cath For Specimen (11/08/17 15:48) (Hub Use Only)Inp Phy Cons/Ref (11/08/17 ) Sodium Chlorid 0.9% 500 Ml Inj (Ns 500 M (11/08/17 18:15) B-Type Natriuretic Peptide (11/08/17 18:12) Iodixanol 320 Inj (Rad Ct) (Visipaque 32 (11/08/17 18:47) Labs Laboratory Tests Test 11/08/17 15:50 11/08/17 17:30 White Blood Count 6.9 TH/MM3 Red Blood Count 3.63 MIL/MM3 Hemoglobin 12.0 GM/DL Hematocrit 35.4 % Mean Corpuscular Volume 97.6 FL Mean Corpuscular Hemoglobin 33.1 PG Mean Corpuscular Hemoglobin Concent 33.9 % Red Cell Distribution Width 15.7 % Platelet Count 283 TH/MM3 Mean Platelet Volume 8.9 FL Neutrophils (%) (Auto) 64.4 % Lymphocytes (%) (Auto) 20.5 % Monocytes (%) (Auto) 11.5 % Eosinophils (%) (Auto) 2.9 % Basophils (%) (Auto) 0.7 % Neutrophils # (Auto) 4.4 TH/MM3 Lymphocytes # (Auto) 1.4 TH/MM3 Monocytes # (Auto) 0.8 TH/MM3 Eosinophils # (Auto) 0.2 TH/MM3 Basophils # (Auto) 0.0 TH/MM3 CBC Comment DIFF FINAL Differential Comment Prothrombin Time 14.4 SEC Prothromb Time International Ratio 1.4 RATIO Activated Partial Thromboplast Time 34.8 SEC Blood Urea Nitrogen 41 MG/DL Creatinine 1.65 MG/DL Random Glucose 128 MG/DL Total Protein 7.5 GM/DL Albumin 3.7 GM/DL Calcium Level 9.3 MG/DL Alkaline Phosphatase 126 U/L Aspartate Amino Transf (AST/SGOT) 28 U/L Alanine Aminotransferase (ALT/SGPT) 18 U/L Total Bilirubin 1.0 MG/DL Sodium Level 136 MEQ/L Potassium Level 3.7 MEQ/L Chloride Level 97 MEQ/L Carbon Dioxide Level 29.2 MEQ/L Anion Gap 10 MEQ/L Estimat Glomerular Filtration Rate 40 ML/MIN Lactic Acid Level 1.5 mmol/L Lipase 146 U/L Urine Color YELLOW Urine Turbidity CLEAR Urine pH 5.0 Urine Specific [place] 1.009 Urine Protein NEG mg/dL Urine Glucose (UA) NEG mg/dL Urine Ketones NEG mg/dL Urine Occult Blood NEG Urine Nitrite NEG Urine Bilirubin NEG Urine Urobilinogen LESS THAN 2.0 MG/DL Urine Leukocyte Esterase NEG Urine RBC LESS THAN 1 /hpf Urine Squamous Epithelial Cells <1 /hpf Urine Hyaline Casts 11 /lpf Microscopic Urinalysis Comment CATH-CULT NOT IND MDM Supervised Visit with [facility]: Yes Interpretation(s) CBC & BMP Diagram 11/08/17 15:50 Total Protein 7.5, Albumin 3.7, Calcium Level 9.3, Alkaline Phosphatase 126 H, Aspartate Amino Transf (AST/SGOT) 28, Alanine Aminotransferase (ALT/SGPT) 18, Total Bilirubin 1.0 Last 24 hours Impressions Chest X-Ray 11/08/17 1548 Signed Impressions: CONCLUSION: 1. Cardiomegaly with subtle positive fluid balance. 2. Minimal left lower lobe airspace disease, likely atelectasis. Abdomen/Pelvis CT 11/08/17 1548 Signed Impressions: CONCLUSION: 1. Compared to the prior examination, no significant changes are demonstrated. 2. The liver appears to be cirrhotic. No significant ascites is seen. 3. Bilateral subcentimeter renal calculi not causing obstruction. 4. A few benign stable left renal cyst. 5. Moderate amount of stool and air throughout the colon without evidence of o bstruction or inflammatory changes. Lower Extremity Ultrasound 11/08/17 0000 Signed Impressions: CONCLUSION: Negative for deep venous thrombosis. Tyrese Gaviria MD FACR Elbow X-Ray 11/08/17 0000 Signed Impressions: CONCLUSION: No acute left elbow abnormality is identified. Narrative Course I, Dr. gregory, have reviewed the advance practice practitioner's documentation and am in agreement, met with the patient face to face, made the diagnosis, and the medical decision making was done by me. *My assessment and Findings: 87-year-old male who presents with concurrent cellulitis despite outpatient therapy. He also has diarrhea. C. difficile will be checked and he will need additional antibiotic therapy given failed outpatient treatment. Diagnosis Primary Impression: Left leg cellulitis Additional Impressions: Generalized weakness Dementia Qualified Codes: F03.90 - Unspecified dementia without behavioral disturbance Failure of outpatient treatment Condition: Dorothy Salas MD November 08, 2017 19:12
[2017-11-08] MEDS ORDERED: GLUCAGON 1 MG/ML VIAL OTHER PRN (19:45)
[2017-11-08] MEDS ORDERED: Vancomycin Consult Pharmacy 1 EA OTHER SCH (19:45)
[2017-11-08] MEDS ORDERED: NALOXONE HCL 0.4 MG/ML AMP IV PUSH PRN (19:45)
[2017-11-08] MEDS ORDERED: SODIUM CHLORIDE 0.9% FLUSH 10 ML FLUSH IV FLUSH PRN (19:45)
[2017-11-08] MEDS ORDERED: ACETAMINOPHEN 325 MG TAB PO PRN (19:45)
[2017-11-08] MEDS ORDERED: DEXTROSE 50% IN WATER 50 ML VIAL(D50) IV PUSH PRN (19:45)
[2017-11-08 20:00] VITALS: BP 128/62; PULSE 70; RESP 18; TEMP 97.4; O2SAT 97
[2017-11-08] MEDS ORDERED: VANCOMYCIN INJ 1,000 MG in SODIUM CHLOR 0.9% 250 ML INJ 250 ML IV ONE (20:00)
[2017-11-08] MEDS ORDERED: SODIUM CHLOR 0.9% 1000 ML INJ 1,000 ML IV SCH (20:00)
[2017-11-08] MEDS: INSULIN ASPART SUPPLEMENTAL SCALE SQ SCH (21:00)
[2017-11-08] MEDS: SODIUM CHLORIDE 0.9% FLUSH 10 ML FLUSH IV FLUSH SCH (21:02)
[2017-11-08] MEDS: SACUBITRIL/VALSARTAN 49 MG-51 MG TAB PO SCH (21:16)
[2017-11-08] MEDS: PIPERACIL-TAZO 3.375 GM PREMIX 50 ML IV SCH (21:16)
--- NOTE | 2017-11-08 21:16 | HHI.HP ---
[facility] Service [facility] Primary Care Physician Gt Barry MD Admission Diagnosis LLE cellulitis; failed outpt tx; generalized weakness Diagnoses: Travel History International Travel<30 Days: No Contact w/Intl Traveler <30 Da: No Traveled to Known Affected Are: No History of Present Illness 87-year-old male with a past medical history significant for diabetes mellitus, hypertension, cirrhosis, dementia, CHF with an ejection fraction of 25% and currently on anticoagulation although the patient and his could not tell me why presents the emergency department for the evaluation of a left lower extremity cellulitis. The patient and his also complaining of diarrhea since June. Most of the history is obtained from the patient's is the patient with a component of underlying dementia. Per patient's , the patient was seen by his cleaning professional on Tuesday for a rash of his left foot and lower extremity. He was placed on clindamycin with which he has been compliant. He saw his primary care physician on who prescribed Flagyl for the patient's diarrhea and ran stool studies. Despite compliance with the antibiotics the patient's diarrhea has persisted in his left lower extremity cellulitis has worsened becoming more red and edematous. Patient's denies any fevers or chills. The patient has no complaints at this time. Review of Systems Unable to obtain secondary to patient's clinical condition Past Family Social History Past Medical History Diabetes mellitus Hypertension Dementia Cirrhosis CHF (EF of 25%) Anticoagulation for unknown reason Past Surgical History AICD/pacemaker placement 4 Hernia repair 3 Back surgery CABG 2 Reported Medications Reported Meds & Active Scripts Active Reported [Mery-Sequels] 1 50 Mg BID Potassium Chloride ER (Potassium Chloride) 10 Meq Cap 10 Meq PO DAILY Torsemide 20 Mg Tab 20 Mg PO DAILY Eliquis (Apixaban) 2.5 Mg Tab 2.5 Mg PO BID Entresto (Sacubitril-Valsartan) 49-51 Mg Tab 1 Tab PO BID Januvia (Sitagliptin Phosphate) 100 Mg Tab 100 Mg PO DAILY Glimepiride 4 Mg Tab 4 Mg PO DAILY Take with breakfast or first main meal Isosorbide Mononitrate ER (Isosorbide Mononitrate) 60 Mg Tab 60 Mg PO DAILY Metformin (Metformin HCl) 500 Mg Tab 500 Mg PO BIDPC With meals Carvedilol 12.5 Mg Tab 12.5 Mg PO BID Allergies: Coded Allergies: tetanus toxoid, adsorbed (Verified Allergy, Severe, 08/08/17) Family History Mother with diabetes mellitus. Father with lung cancer Social History Remote history of tobacco. No alcohol or illicit drugs. Physical Exam Vital Signs Vital Signs Date Time Temp Pulse Resp B/P (MAP) Pulse Ox O2 Delivery O2 Flow Rate FiO2 11/08/17 15:45 96 Room Air 11/08/17 15:45 96 Room Air 11/08/17 15:35 98.5 75 28 112/61 (78) 93 Physical Exam GENERAL: Elderly, pleasant male lying in bed SKIN: Left lower extremity with mild to moderate edema and erythema of the foot and cam. HEAD: Atraumatic. Normocephalic. No temporal or scalp tenderness. EYES: Pupils equal round and reactive. Extraocular motions intact. No scleral icterus. No injection or drainage. ENT: Nose without bleeding, purulent drainage or septal hematoma. Throat without erythema, tonsillar hypertrophy or exudate. Uvula midline. Airway patent. NECK: Trachea midline. No JVD or lymphadenopathy. Supple, nontender, no meningeal signs. CARDIOVASCULAR: Regular rate and rhythm without murmurs, gallops, or rubs. RESPIRATORY: Clear to auscultation. Breath sounds equal bilaterally. No wheezes , rales, or rhonchi. GASTROINTESTINAL: Abdomen soft, non-tender, nondistended. No hepato-splenomegaly , or palpable masses. No guarding. MUSCULOSKELETAL: Extremities without clubbing, cyanosis, or edema. No joint tenderness, effusion, or edema noted. No calf tenderness. NEUROLOGICAL: Awake and alert. Pleasantly confused. Cranial nerves II through XII intact. Motor and sensory grossly within normal limits. Normal speech. Laboratory Laboratory Tests Test 11/08/17 15:50 11/08/17 17:30 White Blood Count 6.9 Red Blood Count 3.63 Hemoglobin 12.0 Hematocrit 35.4 Mean Corpuscular Volume 97.6 Mean Corpuscular Hemoglobin 33.1 Mean Corpuscular Hemoglobin Concent 33.9 Red Cell Distribution Width 15.7 Platelet Count 283 Mean Platelet Volume 8.9 Neutrophils (%) (Auto) 64.4 Lymphocytes (%) (Auto) 20.5 Monocytes (%) (Auto) 11.5 Eosinophils (%) (Auto) 2.9 Basophils (%) (Auto) 0.7 Neutrophils # (Auto) 4.4 Lymphocytes # (Auto) 1.4 Monocytes # (Auto) 0.8 Eosinophils # (Auto) 0.2 Basophils # (Auto) 0.0 CBC Comment DIFF FINAL Differential Comment Prothrombin Time 14.4 Prothromb Time International Ratio 1.4 Activated Partial Thromboplast Time 34.8 Blood Urea Nitrogen 41 Creatinine 1.65 Random Glucose 128 Total Protein 7.5 Albumin 3.7 Calcium Level 9.3 Alkaline Phosphatase 126 Aspartate Amino Transf (AST/SGOT) 28 Alanine Aminotransferase (ALT/SGPT) 18 Total Bilirubin 1.0 Sodium Level 136 Potassium Level 3.7 Chloride Level 97 Carbon Dioxide Level 29.2 Anion Gap 10 Estimat Glomerular Filtration Rate 40 Lactic Acid Level 1.5 Lipase 146 Urine Color YELLOW Urine Turbidity CLEAR Urine pH 5.0 Urine Specific [place] 1.009 Urine Protein NEG Urine Glucose (UA) NEG Urine Ketones NEG Urine Occult Blood NEG Urine Nitrite NEG Urine Bilirubin NEG Urine Urobilinogen LESS THAN 2.0 Urine Leukocyte Esterase NEG Urine RBC LESS THAN 1 Urine Squamous Epithelial Cells <1 Urine Hyaline Casts 11 Microscopic Urinalysis Comment CATH-CULT NOT IND Date/Time Source Procedure Growth Status 11/08/17 15:55 Blood Peripheral Aerobic Blood Culture Pending Received 11/08/17 15:55 Blood Peripheral Anaerobic Blood Culture Pending Received Result Diagram: 11/08/17 1550 11/08/17 1550 Caprini VTE Risk Assessment Caprini VTE Risk Assessment: Mod/High Risk (score >= 2) Caprini Risk Assessment Model Point Value = 1 Point Value = 2 Point Value = 3 Point Value = 5 Age 41-60 Minor surgery BMI > 25 kg/m2 Swollen legs Varicose veins or History of unexplained or recurrent spontaneous Oral contraceptives or hormone replacement Sepsis (< 1 month) Serious lung disease, including pneumonia (< 1 month) Abnormal pulmonary function Acute myocardial infarction Congestive heart failure (< 1 month) History of inflammatory bowel disease Medical patient at bed rest Age 61-74 Arthroscopic surgery Major open surgery (> 45 min) Laparoscopic surgery (> 45 min) Malignancy Confined to bed (> 72 hours) Immobilizing plaster cast Central venous access Age >= 75 History of VTE Family history of VTE Factor V Leiden Prothrombin [id number] Lupus anticoagulant Anticardiolipin antibodies Elevated serum homocysteine Heparin-induced thrombocytopenia Other congenital or acquired thrombophilia Stroke (< 1 month) Elective arthroplasty Hip, pelvis, or leg fracture Acute spinal cord injury (< 1 month) Prophylaxis Regimen Total Risk Factor Score Risk Level Prophylaxis Regimen 0-1 Low Early ambulation 2 Moderate Order ONE of the following: *Sequential Compression Device (SCD) *Heparin 5000 units SQ BID 3-4 Higher Order ONE of the following medications: *Heparin 5000 units SQ TID *Enoxaparin/Lovenox 40 mg SQ daily (WT < 150 kg, CrCl > 30 mL/min) *Enoxaparin/Lovenox 30 mg SQ daily (WT < 150 kg, CrCl > 10-29 mL/min) *Enoxaparin/Lovenox 30 mg SQ BID (WT < 150 kg, CrCl > 30 mL/min) AND/OR *Sequential Compression Device (SCD) 5 or more Highest Order ONE of the following medications: *Heparin 5000 units SQ TID (Preferred with Epidurals) *Enoxaparin/Lovenox 40 mg SQ daily (WT < 150 kg, CrCl > 30 mL/min) *Enoxaparin/Lovenox 30 mg SQ daily (WT < 150 kg, CrCl > 10-29 mL/min) *Enoxaparin/Lovenox 30 mg SQ BID (WT < 150 kg, CrCl > 30 mL/min) AND *Sequential Compression Device (SCD) Assessment and Plan Assessment and Plan Assessment/plan: 1. Left lower extremity cellulitis/failed outpatient therapy Vancomycin/Zosyn Anticipate de-escalation of antibiotics once clinically improved 2. Diarrhea Has been 2-3 episodes daily since June C. difficile negative 3. Hypertension/diabetes mellitus/CHF/cirrhosis Continue home medications Holding home oral anti-hyperglycemics Sliding-scale insulin Monitor blood glucose 4. Anticoagulation Patient and his are unable to tell me why the patient is on Eliquis Reports compliance with this medication Continue home Eliquis 5. LUIS Creatinine 1.65, baseline 1.0 Status post IV fluid hydration in the emergency department Holding IV fluids secondary to CHF Monitor renal function FEN Heart healthy diabetic diet Electrolytes: Monitor and replete as needed Eliquis Physician Certification 2 Midnight Certification Type: Admission for Inpatient Services Order for Inpatient Services The services are ordered in accordance with Medicare regulations or non- Medicare payer requirements, as applicable. In the case of services not specified as inpatient-only, they are appropriately provided as inpatient services in accordance with the 2-midnight benchmark. Estimated LOS (days): 2 2 days is the estimated time the patient will need to remain in the hospital, assuming treatment plan goals are met and no additional complications. Post-Hospital Plan: Not yet determined Melina Art MD November 08, 2017 21:16
[2017-11-08] MEDS: APIXABAN 2.5 MG TABLET PO SCH (21:21)
[2017-11-08] MEDS: CARVEDILOL 12.5 MG TAB PO SCH (21:21)
[2017-11-09] VITALS (7 sets, daily range): BP systolic 102–127; BP diastolic 55–61; PULSE 69–77; RESP 16–18; TEMP 97.1–97.9; O2SAT 92–95
[2017-11-09] MEDS: PIPERACIL-TAZO 3.375 GM PREMIX 50 ML IV SCH ×3 (03:25→15:42)
[2017-11-09] MEDS: ISOSORBIDE MONONITRATE 60 MG CR TAB (IMDUR) PO SCH (06:06)
[2017-11-09 07:20] LABS: AUTOMATED NEUTROPHIL # 3.4 TH/MM3 (1.8-7.7); BASOPHIL % 0.8 % (0.0-2.0); EOSINOPHIL # 0.4 TH/MM3 (0-0.4); EOSINOPHIL % 6.5 % (0.0-4.0); HEMATOCRIT 34.5 % (39.0-51.0); HEMOGLOBIN 11.7 GM/DL (13.0-17.0); LYMPH % 19.8 % (9.0-44.0); LYMPHOCYTE # 1.1 TH/MM3 (1.0-4.8); MEAN CELL VOLUME 97.7 FL (80.0-100.0); MEAN CORPUSCULAR HGB CONC 33.8 % (32.0-36.0); MEAN PLATELET VOLUME 9.2 FL (7.0-11.0); MONO % 11.9 % (0.0-8.0); MONOCYTE # 0.7 TH/MM3 (0-0.9); PLATELET COUNT 239 TH/MM3 (150-450); RED BLOOD COUNT 3.53 MIL/MM3 (4.50-5.90); RED CELL DISTRIBUTION WIDTH 15.6 % (11.6-17.2); WHITE BLOOD COUNT 5.6 TH/MM3 (4.0-11.0)
[2017-11-09 07:52] LABS: BICARBONATE 27.4 MEQ/L (21.0-32.0); CALCIUM 8.6 MG/DL (8.5-10.1); CREATININE 1.38 MG/DL (0.60-1.30)
[2017-11-09 07:55] LABS: RANDOM VANCOMYCIN 10.6 COMMENT
[2017-11-09] MEDS: INSULIN ASPART SUPPLEMENTAL SCALE SQ SCH ×4 (08:00→21:03)
[2017-11-09] MEDS: SACUBITRIL/VALSARTAN 49 MG-51 MG TAB PO SCH ×2 (09:00→20:55)
[2017-11-09] MEDS ORDERED: GLIMEPIRIDE 4 MG TAB PO SCH (09:00)
[2017-11-09] MEDS: APIXABAN 2.5 MG TABLET PO SCH ×2 (09:02→20:56)
[2017-11-09] MEDS: CARVEDILOL 12.5 MG TAB PO SCH ×2 (09:02→20:56)
[2017-11-09] MEDS: POTASSIUM CHLORIDE 10 MEQ CAP PO SCH (09:02)
[2017-11-09] MEDS: TORSEMIDE 20 MG TAB PO SCH (09:02)
[2017-11-09] MEDS: SODIUM CHLORIDE 0.9% FLUSH 10 ML FLUSH IV FLUSH SCH ×2 (09:03→20:58)
[2017-11-09] MEDS ORDERED: VANCOMYCIN 1,000 MG/NS 250 ML IV ONE ×2 (13:00)
--- NOTE | 2017-11-09 14:12 | EKG ---
Date Performed: 11/08/2017 Time Performed: 17:33:10 PTAGE: 87 years EKG: ELECTRONIC VENTRICULAR PACEMAKER ABNORMAL RHYTHM ECG PREVIOUS TRACING : 08/08/2017 10.52 DOCTOR: Ramses Caballero Interpretating Date/Time 11/09/2017 14:11:01
--- NOTE | 2017-11-09 18:49 | HHI.PR ---
Subjective Remarks Patient states edema and erythema is greatly improved. Denies fevers or chills. Denies chest pain or shortness of breath. Patient patient's also states he has been having chronic diarrhea. The patient denies abdominal pain, nausea vomiting. Objective Vitals Vital Signs Date Time Temp Pulse Resp B/P (MAP) Pulse Ox O2 Delivery O2 Flow Rate FiO2 11/09/17 16:00 97.7 69 16 105/55 (72) 95 11/09/17 12:00 97.9 71 17 102/59 (73) 94 11/09/17 08:00 97.8 71 18 121/59 (79) 92 11/09/17 04:55 97.1 71 18 117/55 (75) 95 11/09/17 00:11 70 11/09/17 00:00 97.7 77 18 111/56 (74) 94 11/08/17 20:00 97.4 70 18 128/62 (84) 97 I/O 11/08/17 11/08/17 11/08/17 11/09/17 11/09/17 11/09/17 07:00 15:00 23:00 07:00 15:00 23:00 Intake Total 750 ml 360 ml Balance 750 ml 360 ml Intake Oral 360 ml IV Total 750 ml # Voids 2 4 # Bowel Movements 1 1 Result Diagram: 11/09/17 0601 11/09/17 0601 Imaging Last Impressions Chest X-Ray 11/08/17 1548 Signed Impressions: CONCLUSION: 1. Cardiomegaly with subtle positive fluid balance. 2. Minimal left lower lobe airspace disease, likely atelectasis. Abdomen/Pelvis CT 11/08/17 1548 Signed Impressions: CONCLUSION: 1. Compared to the prior examination, no significant changes are demonstrated. 2. The liver appears to be cirrhotic. No significant ascites is seen. 3. Bilateral subcentimeter renal calculi not causing obstruction. 4. A few benign stable left renal cyst. 5. Moderate amount of stool and air throughout the colon without evidence of o bstruction or inflammatory changes. Lower Extremity Ultrasound 11/08/17 0000 Signed Impressions: CONCLUSION: Negative for deep venous thrombosis. Tyrese Gaviria MD FACR Elbow X-Ray 11/08/17 0000 Signed Impressions: CONCLUSION: No acute left elbow abnormality is identified. Objective Remarks Elderly male lying in bed. Lungs clear to auscultation bilaterally. S1-S2 present with regular rate and rhythm, no murmurs gallops Abdomen is soft, nontender nondistended A/P Problem List: (1) Left leg cellulitis ICD Code: L03.116 - Cellulitis of left lower limb Status: Acute (2) Failure of outpatient treatment ICD Code: Z78.9 - Other specified health status Status: Acute Assessment and Plan 1. Left lower extremity cellulitis/failed outpatient therapy Vancomycin/Zosyn Anticipate de-escalation of antibiotics once clinically improved 11/09 DC IV vancomycin IV Zosyn. I will start the patient IV Keflex. 2. Diarrhea Has been 2-3 episodes daily since June C. difficile negative 11/09 the patient history of liver cirrhosis. I will start the patient on Questran and Creon. 3. Hypertension/diabetes mellitus/CHF/cirrhosis Continue home medications Holding home oral anti-hyperglycemics Sliding-scale insulin Monitor blood glucose 4. Anticoagulation Patient and his are unable to tell me why the patient is on Eliquis Reports compliance with this medication Continue home Eliquis 5. LUIS Creatinine 1.65, baseline 1.0 Status post IV fluid hydration in the emergency department Holding IV fluids secondary to CHF Monitor renal function 11/09 creatinine improving, creatinine trending down from 1.65 2.38. Continue to monitor BUN/creatinine. FEN Heart healthy diabetic diet Electrolytes: Monitor and replete as needed Ruddy Espinoza MD November 09, 2017 18:49
[2017-11-09] MEDS: CHOLESTYRAMINE 4 GM PACKET PO SCH (20:55)
[2017-11-10] VITALS: BP 112/59; PULSE 70; RESP 16; TEMP 97.6; O2SAT 96
[2017-11-10 04:00] VITALS: BP 121/61; PULSE 97; RESP 18; TEMP 97.3; O2SAT 96
[2017-11-10] MEDS: ISOSORBIDE MONONITRATE 60 MG CR TAB (IMDUR) PO SCH (05:11)
[2017-11-10 06:19] LABS: CREATININE 1.38 MG/DL (0.60-1.30)
[2017-11-10 06:21] LABS: RANDOM VANCOMYCIN 9.1 COMMENT
[2017-11-10 08:00] VITALS: BP 128/67; PULSE 71; RESP 18; TEMP 97.3; O2SAT 96
[2017-11-10] MEDS: INSULIN ASPART SUPPLEMENTAL SCALE SQ SCH ×4 (08:00→22:00)
[2017-11-10] MEDS: LIPASE/PROTEASE/AMYLASE (12,000/38,000/60,000) CAP PO SCH ×2 (08:30→13:14)
[2017-11-10] MEDS: CHOLESTYRAMINE 4 GM PACKET PO SCH ×2 (08:31→21:47)
[2017-11-10] MEDS: POTASSIUM CHLORIDE 10 MEQ CAP PO SCH (08:31)
[2017-11-10] MEDS: TORSEMIDE 20 MG TAB PO SCH (08:31)
[2017-11-10] MEDS: CARVEDILOL 12.5 MG TAB PO SCH ×2 (08:31→21:47)
[2017-11-10] MEDS: SODIUM CHLORIDE 0.9% FLUSH 10 ML FLUSH IV FLUSH SCH ×2 (08:31→21:52)
[2017-11-10] MEDS: SACUBITRIL/VALSARTAN 49 MG-51 MG TAB PO SCH ×2 (08:31→21:47)
[2017-11-10] MEDS: APIXABAN 2.5 MG TABLET PO SCH ×2 (08:31→21:47)
[2017-11-10 12:00] VITALS: BP 115/57; PULSE 72; RESP 16; TEMP 97.5; O2SAT 98
[2017-11-10 16:00] VITALS: BP 118/67; PULSE 71; RESP 18; TEMP 97.5; O2SAT 96
--- NOTE | 2017-11-10 16:38 | HHI.PR ---
Subjective Remarks legs are much improved Patient c/o watery diarrhea. Patient is Afebrile. Objective Vitals Vital Signs Date Time Temp Pulse Resp B/P (MAP) Pulse Ox O2 Delivery O2 Flow Rate FiO2 11/10/17 12:00 97.5 72 16 115/57 (76) 98 11/10/17 08:00 97.3 71 18 128/67 (87) 96 11/10/17 04:00 97.3 97 18 121/61 (81) 96 11/10/17 00:00 97.6 70 16 112/59 (76) 96 11/09/17 20:00 97.1 69 16 127/61 (83) 95 I/O 11/09/17 11/09/17 11/09/17 11/10/17 11/10/17 11/10/17 07:00 15:00 23:00 07:00 15:00 23:00 Intake Total 360 ml 100 ml Output Total 1 ml Balance 360 ml -1 ml 100 ml Intake Oral 360 ml IV Total 100 ml Output Urine Total 1 ml # Voids 2 4 # Bowel Movements 1 1 1 Result Diagram: 11/09/17 0601 11/10/17 0522 Imaging Last Impressions Chest X-Ray 11/08/17 154 Signed Impressions: CONCLUSION: 1. Cardiomegaly with subtle positive fluid balance. 2. Minimal left lower lobe airspace disease, likely atelectasis. Abdomen/Pelvis CT 11/08/17 154 Signed Impressions: CONCLUSION: 1. Compared to the prior examination, no significant changes are demonstrated. 2. The liver appears to be cirrhotic. No significant ascites is seen. 3. Bilateral subcentimeter renal calculi not causing obstruction. 4. A few benign stable left renal cyst. 5. Moderate amount of stool and air throughout the colon without evidence of o bstruction or inflammatory changes. Lower Extremity Ultrasound 11/08/17 0000 Signed Impressions: CONCLUSION: Negative for deep venous thrombosis. Tyrese Gaviria MD FACR Elbow X-Ray 11/08/17 0000 Signed Impressions: CONCLUSION: No acute left elbow abnormality is identified. Objective Remarks Elderly male lying in bed. Lungs clear to auscultation bilaterally. S1-S2 present with regular rate and rhythm, no murmurs gallops Abdomen is soft, nontender nondistended A/P Problem List: (1) Left leg cellulitis ICD Code: L03.116 - Cellulitis of left lower limb Status: Acute (2) Failure of outpatient treatment ICD Code: Z78.9 - Other specified health status Status: Acute Assessment and Plan 1. Left lower extremity cellulitis/failed outpatient therapy Vancomycin/Zosyn Anticipate de-escalation of antibiotics once clinically improved 11/09 DC IV vancomycin IV Zosyn. I will start the patient IV Cefazolin. 11/10 DC IV Cefazolin. Start po keflex. 2. Diarrhea Has been 2-3 episodes daily since June C. difficile negative 11/09 the patient history of liver cirrhosis. I will start the patient on Questran and Creon. 11/10 Patient c/o watery diarrhea but not as frequent. Increase dose of Creon. Check C diff toxin PCR. 3. Hypertension/diabetes mellitus/CHF/cirrhosis Continue home medications Holding home oral anti-hyperglycemics Sliding-scale insulin Monitor blood glucose 4. Anticoagulation Patient and his are unable to tell me why the patient is on Eliquis Reports compliance with this medication Continue home Eliquis 5. LUIS Creatinine 1.65, baseline 1.0 Status post IV fluid hydration in the emergency department Holding IV fluids secondary to CHF Monitor renal function 11/09 creatinine improving, creatinine trending down to 1.65 from2.38. Continue to monitor BUN/creatinine. 11/10 Creatinine trending down and stable at 1.38. FEN Heart healthy diabetic diet Electrolytes: Monitor and replete as needed Eliquis Discharge Planning Pending C diff toxin. Possible Dc in am if C diff negative. Ruddy Cortes MD November 10, 2017 16:38
[2017-11-10] MEDS: LIPASE/PROTEASE/AMYLASE (24,000/76,000/120,000) CAP PO SCH (18:53)
[2017-11-10 20:00] VITALS: BP 111/70; PULSE 109; RESP 16; RESP 22; TEMP 97.9; O2SAT 94
[2017-11-10] MEDS ORDERED: CEPH-460 PO (21:02)
--- NOTE | 2017-11-10 21:03 | HHI.DCPOC ---
Discharge Care Plan Diagnosis: (1) Left leg cellulitis (2) Failure of outpatient treatment (3) Dementia (4) Cirrhosis of liver not due to alcohol (5) DM (diabetes mellitus) (6) CHF (congestive heart failure) (7) HLD (hyperlipidemia) (8) HTN (hypertension) (9) Paroxysmal a-fib (10) Generalized weakness Goals to Promote Your Health * To prevent worsening of your condition and complications * To maintain your health at the optimal level Directions to Meet Your Goals Take your medications as prescribed Follow your dietary instruction Follow activity as directed Keep your appointments as scheduled Take your immunizations and boosters as scheduled If your symptoms worsen call your PCP, if no PCP go to Urgent Care Center or Emergency Room Smoking is Dangerous to Your Health. Avoid second hand smoke Call the 24-hour hour crisis hotline for domestic abuse at Ruddy Cortes MD November 10, 2017 21:03
[2017-11-10] MEDS: CEPHALEXIN MONOHYDRATE 500 MG CAP PO SCH (23:41)
[2017-11-11] VITALS: BP 114/69; PULSE 73; RESP 16; TEMP 97.5; O2SAT 93
[2017-11-11 04:57] VITALS: BP 115/62; PULSE 74; RESP 16; TEMP 98.7; O2SAT 95
[2017-11-11] MEDS: CEPHALEXIN MONOHYDRATE 500 MG CAP PO SCH ×2 (06:13→13:01)
[2017-11-11] MEDS: ISOSORBIDE MONONITRATE 60 MG CR TAB (IMDUR) PO SCH (06:13)
[2017-11-11 07:14] LABS: BICARBONATE 28.2 MEQ/L (21.0-32.0); CALCIUM 8.7 MG/DL (8.5-10.1); CREATININE 1.13 MG/DL (0.60-1.30)
[2017-11-11 08:00] VITALS: BP 126/65; PULSE 76; RESP 18; TEMP 97.8; O2SAT 95
[2017-11-11] MEDS: INSULIN ASPART SUPPLEMENTAL SCALE SQ SCH ×2 (08:00→12:00)
[2017-11-11] MEDS: LIPASE/PROTEASE/AMYLASE (24,000/76,000/120,000) CAP PO SCH ×2 (08:38→13:01)
[2017-11-11] MEDS: APIXABAN 2.5 MG TABLET PO SCH (08:38)
[2017-11-11] MEDS: SODIUM CHLORIDE 0.9% FLUSH 10 ML FLUSH IV FLUSH SCH (08:39)
[2017-11-11] MEDS: CARVEDILOL 12.5 MG TAB PO SCH (08:39)
[2017-11-11] MEDS: POTASSIUM CHLORIDE 10 MEQ CAP PO SCH (08:39)
[2017-11-11] MEDS: SACUBITRIL/VALSARTAN 49 MG-51 MG TAB PO SCH (08:39)
[2017-11-11] MEDS: TORSEMIDE 20 MG TAB PO SCH (08:39)
[2017-11-11] MEDS: CHOLESTYRAMINE 4 GM PACKET PO SCH (08:57)
[2017-11-11] MEDS ORDERED: CREON24 PO (11:50)
[2017-11-11] MEDS ORDERED: CHOL4POW4 PO (11:50)
--- NOTE | 2017-11-11 11:51 | HHI.DS ---
Discharge Summary Admission Date November 08, 2017 at 19:25 Discharge Date: Nov 11, 2017 Admitting Diagnosis LLE cellulitis; failed outpt tx; generalized weakness (1) Left leg cellulitis ICD Code: L03.116 - Cellulitis of left lower limb Diagnosis: Principal Status: Acute (2) Failure of outpatient treatment ICD Code: Z78.9 - Other specified health status Diagnosis: Principal Status: Acute (3) Chronic diarrhea ICD Code: K52.9 - Noninfective gastroenteritis and colitis, unspecified (4) Paroxysmal a-fib ICD Code: I48.0 - Paroxysmal atrial fibrillation Status: Chronic (5) Cirrhosis of liver not due to alcohol ICD Code: K74.60 - Unspecified cirrhosis of liver Status: Chronic (6) HLD (hyperlipidemia) ICD Code: E78.5 - Hyperlipidemia, unspecified Status: Chronic (7) DM (diabetes mellitus) ICD Code: E11.9 - Type 2 diabetes mellitus without complications Status: Chronic (8) HTN (hypertension) ICD Code: I10 - Essential (primary) hypertension Status: Chronic (9) CHF (congestive heart failure) ICD Code: I50.9 - Heart failure, unspecified Status: Chronic (10) Dementia ICD Code: F03.90 - Unspecified dementia without behavioral disturbance Status: Acute (11) Generalized weakness ICD Code: R53.1 - Weakness Brief History - From Admission 87-year-old male with a past medical history significant for diabetes mellitus, hypertension, cirrhosis, dementia, CHF with an ejection fraction of 25% and currently on anticoagulation although the patient and his could not tell me why presents the emergency department for the evaluation of a left lower extremity cellulitis. The patient and his also complaining of diarrhea since June. Most of the history is obtained from the patient's is the patient with a component of underlying dementia. Per patient's , the patient was seen by his health information manager on Tuesday for a rash of his left foot and lower extremity. He was placed on clindamycin with which he has been compliant. He saw his primary care physician on who prescribed Flagyl for the patient's diarrhea and ran stool studies. Despite compliance with the antibiotics the patient's diarrhea has persisted in his left lower extremity cellulitis has worsened becoming more red and edematous. Patient's denies any fevers or chills. The patient has no complaints at this time. CBC/BMP: 11/09/17 0601 11/11/17 0545 Significant Findings Laboratory Tests Test 11/08/17 15:50 11/08/17 17:30 11/09/17 06:01 11/10/17 05:22 Red Blood Count 3.63 MIL/MM3 (4.50-5.90) 3.53 MIL/MM3 (4.50-5.90) Hemoglobin 12.0 GM/DL (13.0-17.0) 11.7 GM/DL (13.0-17.0) Hematocrit 35.4 % (39.0-51.0) 34.5 % (39.0-51.0) Monocytes (%) (Auto) 11.5 % (0.0-8.0) 11.9 % (0.0-8.0) Prothrombin Time 14.4 SEC (9.8-11.6) Activated Partial Thromboplast Time 34.8 SEC (24.3-30.1) Blood Urea Nitrogen 41 MG/DL (7-18) 37 MG/DL (7-18) Creatinine 1.65 MG/DL (0.60-1.30) 1.38 MG/DL (0.60-1.30) 1.38 MG/DL (0.60-1.30) Random Glucose 128 MG/DL (74-106) Alkaline Phosphatase 126 U/L (45-117) Chloride Level 97 MEQ/L (98-107) Estimat Glomerular Filtration Rate 40 ML/MIN (>89) 49 ML/MIN (>89) 49 ML/MIN (>89) B-Type Natriuretic Peptide 340 PG/ML (0-100) Eosinophils (%) (Auto) 6.5 % (0.0-4.0) Potassium Level 3.4 MEQ/L (3.5-5.1) Test 11/11/17 05:45 Blood Urea Nitrogen 29 MG/DL (7-18) Random Glucose 169 MG/DL (74-106) Potassium Level 3.2 MEQ/L (3.5-5.1) Estimat Glomerular Filtration Rate 62 ML/MIN (>89) PE at Discharge Elderly male lying in bed. Lungs clear to auscultation bilaterally. S1-S2 present with regular rate and rhythm, no murmurs gallops Abdomen is soft, nontender nondistended Pt Condition on Discharge: Stable Discharge Disposition: Discharge to SNF Discharge Instructions DIET: Follow Instructions for: As Tolerated, No Restrictions Activities you can perform: See Additionl Instruction Other Activity Instructions: as per PT OOB w Ruddy Chappell MD Nov 11, 2017 11:51
[2017-11-11 12:00] VITALS: BP 111/56; PULSE 74; RESP 16; TEMP 97.7; O2SAT 94
== END 2017-11-11 16:18 | DRG 603 ==
LOC: NEPE 15:27 → NEDA 19:25 → N07A 20:34
PROVIDERS: ADMIT Hospitalist; ATTEND Hospitalist
DX: L03.116 Cellulitis of left lower limb (principal); N17.9 Acute kidney failure, unspecified; I11.0 Hypertensive heart disease with heart failure; F03.90 Unspecified dementia, unspecified severity, without behavioral disturbance, psychotic disturbance, mood disturbance, and anxiety; I50.9 Heart failure, unspecified; I48.0 Paroxysmal atrial fibrillation; E11.9 Type 2 diabetes mellitus without complications; K52.9 Noninfective gastroenteritis and colitis, unspecified; R53.1 Weakness; E78.5 Hyperlipidemia, unspecified; K74.60 Unspecified cirrhosis of liver; W01.0XXA Fall on same level from slipping, tripping and stumbling without subsequent striking against object, initial encounter; I25.2 Old myocardial infarction; Z88.7 Allergy status to serum and vaccine; Z79.01 Long term (current) use of anticoagulants; Z87.891 Personal history of nicotine dependence; Z95.0 Presence of cardiac pacemaker; Z95.1 Presence of aortocoronary bypass graft; Z79.84 Long term (current) use of oral hypoglycemic drugs
CPT/HCPCS: 71045; 73080; 74177; 80048; 80053; 80202; 81001; 82565; 82948; 83605; 83690; 83880; 85025; 85610; 85730; 87040; 93005; 93971; 96360; J0690; J1815; J2543; J3370; J7030; J7040; J7050; Q9967